=== PATIENT | female | born 1980 | race American Indian/Alaskan Native ===

== ENCOUNTER 2017-11-14 13:44 | Outpatient (CLI) | payer BC ==
--- NOTE | 2017-11-14 16:04 | Ultrasound Report ---
ULTRASOUND GUIDED NEEDLE CORE BIOPSY LEFT BREAST WITH CLIP PLACEMENT: 11/14/17 CLINICAL: Left breast mass. COMPARISON :A recent [facility] mammogram and left breast ultrasound. FINDINGS: The procedure was explained to the patient and informed consent was obtained. Ultrasound demonstrated the previously described irregular solid hypoechoic mass at 10 o'clock approximately 6 cm from the nipple. I marked the breast with a felt tip marker and a time out was called. The skin was prepped with Betadine and anesthetized with 1% lidocaine. Needle core biopsy was performed through a tiny dermatotomy using ultrasound guidance, 2% lidocaine with epinephrine for deep anesthesia and a 14-gauge Achieve biopsy device. 3 cores were obtained and placed in formalin. A localizer clip was deployed within the mass. The patient tolerated the procedure well and there were no apparent complications. Hemostasis was achieved with minimal pressure and a sterile dressing was applied. A two view mammogram demonstrated satisfactory placement of the clip. She left the department in good condition and was given instructions for wound care and followup. IMPRESSION: Uncomplicated ultrasound guided needle core biopsy with clip placement left breast.
--- NOTE | 2017-11-14 16:06 | Mammography Report ---
LEFT DIGITAL DIAGNOSTIC MAMMOGRAM: 11/14/17 13:44:00 CLINICAL: For clip placement immediately status post ultrasound biopsy. COMPARISON:A recent [facility] mammogram and left breast ultrasound. FINDINGS: A biopsy clip is now identified within the mass at 10 o'clock. IMPRESSION: Concordant clip placement status post ultrasound biopsy. BI-RADS CATEGORY: 5 - - Highly Suggestive of Malignancy Pathology pending.
== END 2017-11-14 13:45 | disposition home or self-care (01) ==
LOC: SPVWC 13:44
PROVIDERS: ATTEND Family Medicine
DX: C50.912 Malignant neoplasm of unspecified site of left female breast (principal); Z17.0 Estrogen receptor positive status [ER+]
CPT/HCPCS: 88305; 88342; 88361

== ENCOUNTER 2017-11-28 12:36 | Outpatient (CLI) | payer BC ==
--- NOTE | 2017-11-28 15:34 | Ultrasound Report ---
ULTRASOUND GUIDED NEEDLE CORE BIOPSY OF A LEFT AXILLARY LYMPH NODE WITH CLIP PLACEMENT : 11/28/17 12:36:00 CLINICAL: Newly diagnosed left breast cancer and a suspicious left axillary lymph node described on a recent [facility] ultrasound report. FINDINGS: The procedure was explained to the patient and informed consent was obtained. Ultrasound demonstrated a suspicious left axillary lymph node. The skin in the axilla was prepped with Betadine and anesthetized with 1% lidocaine. Ultrasound guided needle core biopsy of the lymph node was performed through a small dermatotomy using 2% lidocaine with epinephrine for deep anesthesia and a 18-gauge Achieve biopsy device. 3 samples were obtained and placed in formalin. A clip was deployed within the lymph node. Hemostasis was achieved with minimal pressure and a sterile dressing was applied. The patient tolerated the procedure well and there were no apparent complications. She was discharged in good condition and was given instructions for wound care and followup. IMPRESSION: Uncomplicated ultrasound-guided needle core biopsy of a left axillary lymph node with clip placement.
== END 2017-11-28 12:37 | disposition home or self-care (01) ==
LOC: SPVWC 12:36
PROVIDERS: ATTEND Surgery
DX: C50.912 Malignant neoplasm of unspecified site of left female breast (principal); C77.3 Secondary and unspecified malignant neoplasm of axilla and upper limb lymph nodes
CPT/HCPCS: 38505; 88305; A4648

== ENCOUNTER 2017-12-02 12:51 | Outpatient (CLI) | payer BC ==
--- NOTE | 2017-12-05 13:36 | Magnetic Resonance Report ---
BILATERAL BREAST MRI WITHOUT AND WITH CONTRAST: 12/02/17 12:51:00 CLINICAL: Newly diagnosed left breast cancer. She underwent an ultrasound guided needle biopsy of a left breast mass at 10 o'clock on 11/14/17. Pathology revealed invasive carcinoma NOS with overall grade III/III. She had ultrasound guided needle biopsy of a left axillary lymph node on 11/28/17 which confirmed metastatic poorly differentiated carcinoma. COMPARISON:11/02/17 [facility] left mammogram and 11/25/17 right mammogram from [facility] is. TECHNIQUE: Axial 1.0-mm T1 without, axial high resolution 2.0-mm T2 and axial 1.0-mm dynamic Vibrant high-resolution postcontrast T1 fat saturation sequences on a 1.5 Ada magnet. The examination was performed with an 8 channel dedicated Sentinelle breast coil. Post processing with CAD and subtraction was performed on an Microland workstation. 19.0 cc of Multihance was injected without incident via a left antecubital vein 22-gauge INT for the contrast portion of the exam. Consent was obtained prior to the administration of the contrast. FINDINGS: Right: Minimal background parenchymal enhancement. No mass or suspicious enhancement of the right breast. No suspicious right axillary or right internal mammary lymph nodes. Left: Moderate background parenchymal enhancement. The known cancer is an irregular enhancing mass at 10 o'clock approximately 7 cm from the nipple measuring 2.8 x 2.1 x 2.2 cm. It demonstrates heterogeneous enhancement with mixed kinetics, 320% peak enhancement and 4% type III washout. Separate regional clumped non-Mass enhancement is identified at 11 o'clock and 12 o'clock and measures approximately 6 cm anterior-posterior by 3 cm transverse dimension. The biopsy confirmed metastatic left axillary lymph node measures 2.5 x 1.5 cm. No other suspicious lymph nodes are identified. IMPRESSION: 1. Multicentric left breast cancer with a 2.8 cm x 2.2 cm x 2.1 cm mass at 10 o'clock and separate highly suspicious non-Mass enhancement at 11 o'clock and 12 o'clock measuring 6 x 3 cm. 2. A single left axillary karuna metastasis and no other suspicious lymph nodes. 3. Negative right breast. LEFT BI-RADS 6 -- Known Cancer RIGHT BI-RADS 1 -- Negative
== END 2017-12-02 12:52 | disposition home or self-care (01) ==
LOC: SPVIMAG 12:51
PROVIDERS: ATTEND Surgery
DX: C79.89 Secondary malignant neoplasm of other specified sites (principal); C50.212 Malignant neoplasm of upper-inner quadrant of left female breast
CPT/HCPCS: A9577; C8908; 77059

== ENCOUNTER 2017-12-05 07:21 | Day surgery (SDC) | payer BC ==
[2017-12-05] MEDS ORDERED: NACL BACTERIOSTATIC INFILTRATI ONE (08:20)
--- NOTE | 2017-12-05 08:42 | Anesthesia Consultation ---
Anesthesia Consult and Med Hx Date of service: 12/05/17 - Airway Anesthetic Teeth Evaluation: Good ROM Head & Neck: Adequate Mental/Hyoid Distance: Adequate Mallampati Class: Class II Intubation Access Assessment: Probably Good - Pulmonary Exam CTA: Yes - Cardiac Exam Cardiac Exam: RRR - Pre-Operative Health Status ASA Pre-Surgery Classification: ASA2 Proposed Anesthetic Plan: MAC - Cardiovascular System Hx Hypertension: Yes (7 YEARS, takes bystolic) - Central Nervous System Hx Psychiatric Problems: No - Other Systems Hx Alcohol Use: No Hx Substance Use: No Hx Cancer: Yes (breast CA)
--- NOTE | 2017-12-05 08:43 | Anesthesia Day of Surgery ---
Anesthesia Day of Surgery - Day of Surgery Patient Examined: Yes Patient H&P Reviewed: Yes Patient is NPO: Yes Beta Blockers: Yes (pb, 12/04 evening)
[2017-12-05] MEDS ORDERED: NACL 0.9% IR ONE (08:48)
[2017-12-05] MEDS ORDERED: DIPRIVAN 10 MG/ML IV ONE ×2 (08:54→09:38)
[2017-12-05] MEDS ORDERED: SUBLIMAZE ONE (08:55)
[2017-12-05] MEDS ORDERED: XYLOCAINE MPF 2% ONE (08:55)
[2017-12-05] MEDS ORDERED: HEPARIN 10,000 UNITS/10 ML ONE (08:57)
[2017-12-05] MEDS ORDERED: XYLOCAINE 1% 20 mL ONE (08:57)
[2017-12-05] MEDS ORDERED: NACL 0.9% 100 ML ONE (08:57)
[2017-12-05] MEDS ORDERED: MARCAINE 0.25% INFILTRATI ONE ×2 (08:57→08:58)
[2017-12-05] MEDS ORDERED: XYLOCAINE 1% 20 mL INFILTRATI ONE (08:58)
[2017-12-05] MEDS ORDERED: NACL 0.9% IV ONE (08:58)
[2017-12-05] MEDS ORDERED: HEPARIN 10,000 UNITS/10 ML IV ONE (08:58)
[2017-12-05] MEDS ORDERED: VERSED IV NR (09:00)
[2017-12-05] MEDS ORDERED: PEPCID IV NR (09:00)
[2017-12-05] MEDS ORDERED: NACL 0.9% 1000 ML 1,000 ML IV SCH ×2 (09:00)
[2017-12-05] MEDS ORDERED: ANCEF/STERILE WATER 2 GM/20 ML IV NR (09:00)
[2017-12-05] MEDS ORDERED: TORADOL ONE (10:24)
--- NOTE | 2017-12-05 10:28 | Short Stay Summary ---
Short Stay Documentation Date of service: 12/05/17 Narrative H&P: 37 yo F with newly diagnosed left sided breast cancer presents for placement of port. She has no complaints. - History Principal diagnosis: left breast cancer H&P: obtained from office - Allergies and Medications Current Medications: Allergies No Known Allergies Allergy (Verified 12/02/17 10:24) Home Medications Medication Instructions Recorded Confirmed Last Taken Type Azilsartan Med/Chlorthalidone 1 tab PO DAILY 12/02/17 12/05/17 12/04/17 History [Edarbyclor 40-25 mg] Nebivolol HCl [Bystolic] 5 mg PO DAILY 12/02/17 12/05/17 12/04/17 23:30 History Norgestimate-Ethinyl Estradiol 1 tab PO DAILY 12/02/17 12/05/17 12/04/17 History [Tri-Sprintec Tablet] Active Medications Cefazolin Sodium (Ancef/Sterile Water 2 Gm/20 Ml) 2 gm IV PREOP NR Stop: 12/05/17 11:00 Sodium Chloride (Nacl 0.9% 1000 Ml) 1,000 mls @ 100 mls/hr IV DIRECT OLIVE Last Admin: 12/05/17 08:51 Dose: 100 mls/hr Midazolam HCl (Versed) 2 mg IV PREOP NR Stop: 12/05/17 23:59 Last Admin: 12/05/17 08:55 Dose: 2 mg - Brief post op/procedure progress note Date of procedure: 12/05/17 Pre-op diagnosis: left breast cancer Post-op diagnosis: same Procedure: Right subclavian Port placement with ultrasound guidance Anesthesia: MAC, local Findings: Good placement of port, good blood return, no PTX on post op CXR Surgeon: NEIL RKAMER Estimated blood loss: minimal Pathology: none Condition: stable - Hospital course Hospital course: Pt was recovered in PACU and discharged to home in stable condition once criteria was met. - Disposition Condition at discharge: Good Disposition: DC-01 TO HOME OR SELFCARE Short Stay Discharge Plan Activity: no restrictions Diet: regular Wound: open to air, other (may shower tomorrow, pat incisions dry, do not scrub. Do not submerge incisions in water) Additional Instructions: call surgeon if you have increased pain at port site, increased bruising (some mild bruising is expected), drainage or redness around in the incisions. Follow up with: SHABNAM MARTINEZ MD [Primary Care Provider] - 7 Days MARCEL CAMPOS MD [Staff Physician] - 12/08/17
[2017-12-05] MEDS ORDERED: TORADOL IV ONE (10:30)
[2017-12-05] MEDS: DILAUDID IV PRN ×2 (10:30→10:44)
[2017-12-05] MEDS ORDERED: DILAUDID ONE (10:31)
--- NOTE | 2017-12-05 10:32 | Operative Report ---
Operative Report Operative Report: Date of operation: 12/05/17 Reoperative diagnosis: Left-sided breast cancer Postoperative diagnosis: Same as above Procedure performed: Placement of right subclavian Port-A-Cath with ultrasound guidance Surgeon: Alejandro Ashton DO Anesthesia: MAC, local Findings: On intraoperative CXR - good placement of port and no PTX EBL: <10cc Complications: none Disposition: stable to PACU HPI and indication: Patient is a 37-year-old female who was recently diagnosed with left-sided breast cancer. The patient is seen by Dr. Esqueda and Dr. Farias (onc) and deemed a candidate for chemotherapy. All of the risks associated with the procedure were discussed with the patient including but not limited to pneumothorax, infection, bleeding, malpositioned port, injury to other structures. The patient understands and all questions were answered. Consent was signed and placed on chart. Procedure in detail: The patient was identified in the preoperative area, taken back to operating room, placed on operating table in supine position. After anesthesia was induced both arms were tucked and upper chest and neck were prepped and draped in usual sterile fashion. A timeout was performed. The was placed in Trendelenburg position. Local anesthetic consisting of a 50/50 mixture of 1% lidocaine and 0.25% Marcaine was infiltrated into the skin at the intended puncture site. The right subclavian vein was visualized with ultrasound guidance and was accessed on the first stick. There was return of dark red, nonpulsatile blood. The wire was threaded under fluoroscopy without resistance and positioning confirmed. The needle was then removed. Using a 15 blade, an incision was made in the right upper chest and dissection carried down through the skin and subcutaneous tissue using Bovie electrocautery. Hemostasis was achieved along the way. A pocket for the port was then created bluntly and with electrocautery. The catheter was flushed and tunneled from the pocket to the wire. A breakaway catheter/dilator sheath then inserted over the wire under fluoroscopy, and the wire and dilator removed. The catheter was then inserted through the breakaway catheter which was then removed. The catheter sat flush under the skin. Using continuous fluoroscopy, the catheter was pulled back until the tip was visualized in the right atrium. The catheter was then cut to size and the port attached in the usual fashion. The port was then sutured into place to the pre-pectoral fascia using 2-0 Vicryl interrupted sutures. The wound was irrigated and hemostasis ensured. The port was tested with heparinized saline and there was return of blood and it flushed easily. The port was then instilled with 3000 units of heparin. The deep dermal layer was then closed with interrupted 3-0 Vicryl stitches. The skin incisions were closed with 4-0 Monocryl subcuticular stitches and skin glue. Intraoperative chest x-ray did show good positioning of the port, without evidence of pneumothorax. At the end of the case, all sponge, instrument, sharp counts were correct 2. The patient was awoken from anesthesia and taken to PACU in stable condition.
--- NOTE | 2017-12-05 10:41 | Post Anesthesia Evaluation ---
- Post Anesthesia Evaluation Patient Participated: Yes Airway Patent: Yes Stable Respiratory Function: Yes Nausea/Vomiting: No Temp > 96.8F: Yes Pain Manageable: Yes Adequeate Hydration: Yes Anesthesia Complications: No
--- NOTE | 2017-12-05 10:44 | Fluoroscopy Report ---
FLUOROSCOPY CENTRAL VENOUS DEVICE PLACEMENT INDICATION: Left breast cancer. COMPARISON: None. FINDINGS: Frontal chest radiograph demonstrates a right subclavian chest port tip at or just below the cavoatrial junction. Slight exaggerated cardiomediastinal silhouette. Clear lungs. Unremarkable bones. CONCLUSION: Uncomplicated right chest port, as described. Thank you for the opportunity to participate in this patient's care.
[2017-12-05 13:29] VITALS: BP 103/73
== END 2017-12-05 11:39 | disposition home or self-care (01) ==
LOC: OR 07:21
PROVIDERS: ATTEND Surgery
DX: C50.912 Malignant neoplasm of unspecified site of left female breast (principal); I10 Essential (primary) hypertension
CPT/HCPCS: 36561; 77001; 81025; C1788; J0690; J1170; J1644; J1885; J2250; J2704; J3010; J7030

== ENCOUNTER 2017-12-15 11:19 | Outpatient (CLI) | payer BC ==
--- NOTE | 2017-12-15 15:24 | PET Report ---
PET/CT:12/15/17 11:19:00 CLINICAL: Breast cancer staging. Newly diagnosed left breast cancer and a biopsy proven left axillary karuna metastasis. RADIOPHARMACEUTICAL: 13.56mCi F18-FDG. COMPARISON: MRI Breast 12/02/17 TECHNIQUE- Following intravenous injection of F-18 FDG and an approximately 60 minute uptake period, CT and PET images from the mid skull to the upper thighs were acquired with the patient in the fasted state. No contrast was administered. The CT protocol used for this PET CT study is designed for attenuation correction and anatomic localization of PET abnormalities. This carbon cutter CT is not desired to produce and cannot replace, [id number] diagnostic CT scans with specific imaging protocols for different body parts and indications. Plasma glucose at the time of this test: 111g/dl. The standardized uptake values (SUV) are normalized to patient body weight and indicate the highest activity concentration (SUV max) in a given disease site. FINDINGS: Brain--Physiologic FDG uptake in the visualized regions of the brain. Neck--Physiologic FDG uptake in the mucosal structures and prominent bilateral benign FDG uptake in brown fat of the lower neck and upper chest. Chest--An irregular 3.0 cm left upper inner FDG avid breast mass with SUV 7.8. It contains a biopsy clip and correlates with the known cancer. No other mass no other suspicious FDG uptake in the left breast. Physiologic FDG uptake in mediastinal blood pool and myocardium. Lungs--No abnormal uptake. No pulmonary nodule or mass. Pleura/pericardium--No abnormal uptake. Thoracic nodes--No abnormal uptake. The biopsy proven left axillary lymph node metastasis measures 2.1 x 1.2 cm with SUV 2.0. Several prominent contiguous right paratracheal heavily calcified lymph nodes. No calcified hilar lymph nodes. Hepatobiliary--The liver is enlarged with the right lobe measuring 17 cm in length. The liver is diffusely hypodense with suggestion of too numerous to count hypodense masses. A posterior right upper lobe mass is oval and circumscribed and measures 2.3 x 2.0 cm. A hypodense 2.0 x 1.7 cm mass of the lateral segment of the left lobe of the liver. This lesion demonstrates heterogeneous FDG uptake within she the 6.5. Several additional foci of FDG uptake are suspicious for FDG avid metastases. The most prominent is in the midline in the posterior aspect of the lateral segment of the left lobe with SUV 7.2. There is no distinct corresponding lesion on CT. A few scattered benign-appearing calcifications in the liver. The gallbladder and bile ducts are normal. Liver background SUV mean, as a reference for comparing FDG studies, is 4.0 . Spleen--No abnormal uptake. Pancreas--No abnormal uptake. Adrenal Glands--No abnormal uptake. Kidneys/Ureters/Bladder--No abnormal uptake. Abdominopelvic Nodes--No abnormal uptake. Bowel/Peritoneum/Mesentery--No abnormal uptake. Pelvic organs--No abnormal uptake. Bones/Soft Tissues--No abnormal uptake and no suspicious bone lesion. IMPRESSION- 1. Newly diagnosed left breast cancer with a biopsy proven left axillary lymph node metastasis. 2. Mild hepatomegaly and too numerous to count highly suspicious liver masses.Several highly suspicious FDG avid liver masses with the greatest FDG uptake in left lobe lateral segment lesions. 3. No evidence of pulmonary or skeletal metastasis.
== END 2017-12-15 11:20 | disposition home or self-care (01) ==
LOC: PET 11:19
PROVIDERS: ATTEND Internal Medicine Hematology & Oncology
DX: C79.89 Secondary malignant neoplasm of other specified sites (principal); C50.212 Malignant neoplasm of upper-inner quadrant of left female breast; R16.0 Hepatomegaly, not elsewhere classified; K76.89 Other specified diseases of liver; I10 Essential (primary) hypertension
CPT/HCPCS: 78815; 82962; A9552

== ENCOUNTER 2017-12-16 06:53 | Day surgery (SDC) | payer BC ==
[2017-12-16 07:54] LABS: Basophils # (Auto) 0.1 K/mm3 (0.0-0.1); Basophils % (Auto) 0.5 % (0.0-1.8); Eosinophils # (Auto) 0.3 K/mm3 (0.0-0.4); Eosinophils % (Auto) 2.5 % (0.0-4.3); Hematocrit 36.8 % (30.3-42.9); Hemoglobin 12.8 gm/dl (10.1-14.3); Lymphocytes # (Auto) 3.2 K/mm3 (1.2-5.4); Lymphocytes % (Auto) 27.5 % (13.4-35.0); Mean Corpuscular HGB Conc 35 % (30-34); Mean Corpuscular Hemoglobin 30 pg (28-32); Mean Corpuscular Volume 87 fl (79-97); Monocytes # (Auto) 1.1 K/mm3 (0.0-0.8); Monocytes % (Auto) 9.9 % (0.0-7.3); Platelet Count 365 K/mm3 (140-440); Red Blood Count 4.26 M/mm3 (3.65-5.03); Red Cell Distribution Width 12.8 % (13.2-15.2)
[2017-12-16 08:04] LABS: INR 0.88 (0.87-1.13)
[2017-12-16 08:05] LABS: Partial Thromboplastin Time 31.2 Sec. (24.2-36.6)
[2017-12-16 09:00] LABS: BUN/Creatinine Ratio 21; Blood Urea Nitrogen 21 mg/dL (7-17); Calcium 9.2 mg/dL (8.4-10.2); Hemolysis Index 1
[2017-12-16] MEDS ORDERED: VERSED IV ONE ×2 (10:05→10:22)
[2017-12-16] MEDS ORDERED: SUBLIMAZE ONE (10:06)
[2017-12-16] MEDS ORDERED: SUBLIMAZE IV ONE (10:22)
[2017-12-16] MEDS ORDERED: GELFOAM 12 X 7 TP ONE (10:54)
--- NOTE | 2017-12-16 11:26 | Short Stay Summary ---
Short Stay Documentation Date of service: 12/16/17 Narrative H&P: 37-year-old female with metastatic breast cancer who presents for liver biopsy. I reviewed the CT/PET scan and the imaging of the liver is not adequate for targeting liver lesion. Patient was brought to CT and had a CT scan performed with contrast of the abdomen and pelvis, and then had a CT guided liver biopsy performed which had adequate tissue per pathology. 5 cores provided. - History Principal diagnosis: Metastatic brast cancer Past Medical History: other (breast cancer) Past Surgical History: Other (port placement) Social history: no significant social history - Allergies and Medications Current Medications: Allergies No Known Allergies Allergy (Verified 12/02/17 10:24) Home Medications Medication Instructions Recorded Confirmed Last Taken Type Azilsartan Med/Chlorthalidone 1 tab PO DAILY 12/02/17 12/16/17 12/15/17 History [Edarbyclor 40-25 mg] Nebivolol HCl [Bystolic] 5 mg PO DAILY 12/02/17 12/16/17 12/15/17 History - Physical exam General appearance: no acute distress Lungs: Normal air movement Gastrointestinal: normal Neurological: Normal speech - Brief post op/procedure progress note Date of procedure: 12/16/17 Pre-op diagnosis: Metastatic breast cancer Post-op diagnosis: same Procedure: CT guided liver biopsy Anesthesia: local (w/ conscious sedation) Findings: 4 liver lesions, largest left sided one targeted for biopsy ; gelfoam slurry used to gelfoam the tract Surgeon: PAIGE VILLEGAS Estimated blood loss: minimal Condition: stable - Hospital course Hospital course: Patient will be monitored for 4 hrs, and then can be discharged if no issues. - Disposition Condition at discharge: Stable Disposition: DC-01 TO HOME OR SELFCARE - Discharge Diagnoses (1) Metastatic breast cancer Status: Acute Short Stay Discharge Plan Activity: advance as tolerated Weight Bearing Status: Weight Bear as Tolerated Diet: renal Wound: keep clean and dry, other (no lifting more than 10 pounds for 1 week) Follow up with: SHABNAM MARTINEZ MD [Primary Care Provider] - 7 Days
[2017-12-16 14:58] VITALS: BP 98/57
--- NOTE | 2017-12-16 15:08 | Cat Scan Report ---
EXAM: CT guided focal left sided liver biopsy CLINICAL INDICATION: Metastatic breast cancer with liver lesions. DATE: 12/16/17 LYE MACHINE OPERATOR: PAIGE VILLEGAS MD MEDICATIONS: Conscious sedation using Versed and fentanyl was performed under guidance of radiologic nursing. Continuous cardiopulmonary monitoring was utilized. PROCEDURE: Following an explanation of the risks, benefits and alternatives; written informed consent was obtained. The patient was brought to the CT suite and placed in supine position on the CT table. Scheme Technician CT was performed of the liver. After determining the appropriate site, the skin was infiltrated with lidocaine and a finder needle was placed. Intermittent CT was performed until the desired position was identified. The 17 gauge coaxial needle was inserted into the liver adjacent to the largest visualized liver lesion correlated to prior CT scan with contrast. 5, 18 gauge biopsies were obtained. Adequate tissue was obtained. Gelfoam slurry was injected through the coaxial needle as the needle was withdrawn. Final CT was obtained. Sterile bandage was applied. The patient tolerated the procedure well. There were no immediate postprocedural complications. FINDINGS: 1. Initial CT demonstrates multiple liver lesions, the largest being in the left lobe of the liver best visualized on the contrast enhanced CT of the abdomen and pelvis. 2. Intermittent CT demonstrates the coaxial 17 gauge coaxial needle was placed adjacent to the left lobe largest hepatic lesion. 3. There is a satisfactory window for CT biopsy. 4. A total of 5 18 gauge core biopsies were obtained. 5. Expected postprocedural changes noted with Gelfoam slurry injection. No hematoma. IMPRESSION: Successful CT guided left sided focal liver biopsy.
--- NOTE | 2017-12-16 19:48 | Cat Scan Report ---
FINAL REPORT EXAM: CT ABDOMEN PELVIS W CON HISTORY: breast cancer. Possible liver lesions. TECHNIQUE: CT abdomen and pelvis with intravenous contrast PRIORS: None. FINDINGS: There is some diffuse fatty infiltration of the liver Within the lateral 7 of the left lobe of the liver there is an irregular low-density focus measuring 1.8 x 2.2 centimeters. Margins do not enhance. Within the right lobe of the liver (axial slice 20) there is low-density focus 1.1 x 0.86 centimeters. Inferior to this there is a mildly dilated duct and there is surrounding increased density likely reflecting fatty sparing may reflect focal cystic change in ectasia and intrahepatic duct however underlying mass cannot be excluded. The kidneys demonstrate symmetric contrast enhancement. Adrenal glands are unremarkable Spleen is normal in size. Multiple splenic calcifications are present. No peripancreatic inflammatory changes are observed. No evidence for colonic or small bowel distention. Urinary bladder is unremarkable Uterus has a lobular appearance likely reflecting underlying fibroid. No evidence for ascites or free air No pathologically enlarged lymph nodes are observed. No focal bony lesions are identified. IMPRESSION: 1.8 x 0.22 centimeter low-density focus within the left lobe of the liver. Indeterminate could reflect hemangioma however given history underlying neoplasm should be excluded. Focally dilated duct within the right lobe of the liver with a cystic-appearing focus could reflect focal ectasia however underlying neoplasm cannot be excluded surrounding increased density likely reflects focal fatty sparing. Diffuse fatty infiltration of the liver Consider a follow-up MRI with liver protocol for further evaluation including MRCP. Lobular contour the uterus likely reflects underlying fibroid No additional acute findings
== END 2017-12-16 15:00 | disposition home or self-care (01) ==
LOC: CATHLABREC 06:53 → EDSTATUS 08:30 → CATHLABREC 15:00
PROVIDERS: ATTEND Internal Medicine Hematology & Oncology
DX: C22.8 Malignant neoplasm of liver, primary, unspecified as to type (principal); C50.212 Malignant neoplasm of upper-inner quadrant of left female breast
CPT/HCPCS: 36415; 47000; 74177; 77012; 80048; 85025; 85610; 85730; 88307; 88333; A4649; J2250; J3010; Q9967

== ENCOUNTER 2018-02-15 17:47 | Inpatient (IN) | payer BC ==
[2018-02-15] MEDS ORDERED: NACL 0.9% 500 ML 500 ML IV ONE (18:23)
[2018-02-15 18:46] LABS: Hematocrit 27.9 % (30.3-42.9); Hemoglobin 9.6 gm/dl (10.1-14.3); Mean Corpuscular HGB Conc 35 % (30-34); Mean Corpuscular Hemoglobin 30 pg (28-32); Mean Corpuscular Volume 87 fl (79-97); Platelet Count 291 K/mm3 (140-440)
[2018-02-15 18:51] LABS: INR 1.01 (0.87-1.13)
[2018-02-15 18:59] LABS: Albumin 3.5 g/dL (3.9-5); Calcium 8.5 mg/dL (8.4-10.2)
[2018-02-15 19:38] LABS: Basophils % (Manual) 0 % (0.0-1.8); Total Cells Counted 100
[2018-02-15 19:39] LABS: Anisocytosis Few
[2018-02-15] MEDS ORDERED: LEVAQUIN 750MG/150ML 750 MG/150 ML BAG IV ONE (19:46)
[2018-02-15] MEDS ORDERED: ZOSYN/NS 4.5GM/100ML 4.5 GM/100 ML VIAL IV SCH (20:00)
--- NOTE | 2018-02-15 20:01 | Emergency Department Report ---
HPI - General Chief Complaint: Fever Time Seen by Provider: 02/15/18 19:44 - HPI HPI: 37-year-old -[place] female presents to the emergency department from [facility], sent in by her oncologist, with complaint of a fever. The patient went in there for a follow-up regarding her breast cancer with liver metastasis and chemotherapy treatment, which she had last . She was found to have a temperature with a MAXIMUM TEMPERATURE of 101.7F. She's been feeling cold with some chills and they noticed her to be clammy and checked her temperature and found the fever. She also has a history of hypertension. She was not given anything for her fever and presents with a note from the oncologist stating that the patient has neutropenic fever, to obtain cultures and start empiric antibiotics. ED Past Medical Hx - Past Medical History Previous Medical History?: Yes Hx Hypertension: Yes (2010, takes bystolic) Hx Heart Attack/AMI: No Hx Congestive Heart Failure: No Hx Diabetes: No Hx of Cancer: Yes (breast, liver) Hx HIV: No - Social History Smoking Status: Never Smoker Substance Use Type: None - Medications Home Medications: Home Medications Medication Instructions Recorded Confirmed Last Taken Type Azilsartan Med/Chlorthalidone 1 tab PO DAILY 12/02/17 12/16/17 12/15/17 History [Edarbyclor 40-25 mg] Nebivolol HCl [Bystolic] 5 mg PO DAILY 12/02/17 12/16/17 12/15/17 History ED Review of Systems ROS: Stated complaint: FEVER Other details as noted in HPI Comment: All other systems reviewed and negative Constitutional: chills, fever Eyes: denies: eye pain, eye discharge, vision change ENT: denies: ear pain, throat pain Respiratory: denies: cough, shortness of breath, wheezing Cardiovascular: denies: chest pain, palpitations Gastrointestinal: denies: abdominal pain, nausea, diarrhea Genitourinary: denies: urgency, dysuria, discharge Musculoskeletal: denies: back pain, joint swelling, arthralgia Skin: denies: rash, lesions Neurological: denies: headache, weakness, paresthesias Physical Exam - Physical Exam Vital Signs: Vital Signs 02/15/18 18:13 Temperature 100.7 F H Pulse Rate 129 H Respiratory 18 Rate Blood Pressure 100/63 O2 Sat by Pulse 98 Oximetry Physical Exam: GENERAL: The patient is well-developed well-nourished. HENT: Normocephalic. Atraumatic. Patient has moist mucous membranes. EYES: Extraocular motions are intact. Pupils equal reactive to light bilaterally. NECK: Supple. Trachea is midline. CHEST/LUNGS: Clear to auscultation. There is no respiratory distress noted. There is a chest port in place. HEART/CARDIOVASCULAR: Regular. There is mild to moderate tachycardia. There is no murmur. ABDOMEN: Abdomen is soft, nontender. Patient has normal bowel sounds. There is no abdominal distention. SKIN: Skin is hot but dry. NEURO: The patient is awake, alert, and oriented. The patient is cooperative. The patient has no focal neurologic deficits. The patient has normal speech. Cranial nerves II through XII grossly intact. MUSCULOSKELETAL: There is no tenderness or deformity. There is no limitation range of motion. There is no evidence of acute injury. ED Course Vital Signs 02/15/18 18:13 Temperature 100.7 F H Pulse Rate 129 H Respiratory 18 Rate Blood Pressure 100/63 O2 Sat by Pulse 98 Oximetry ED Medical Decision Making - Lab Data Result diagrams: 02/15/18 18:26 02/15/18 18:26 - Radiology Data Radiology results: image reviewed interpreted by me: Chest x-ray does not show any acute process. There are no pleural effusions, obvious pneumonia and there is no pneumothorax. - Medical Decision Making Patient presents with neutropenic fever. It appears that she has a urinary tract infection as a source of the fever/infection. Chest x-ray does not show any acute process. Patient was treated empirically with Zosyn and Levaquin after blood and urine cultures have been sent. Patient had some tachycardia and some transient hypotension but seemed responsive to IV fluid resuscitation. Patient is dehydrated. Labs also show some mild hypokalemia and some renal insufficiency. The patient was sent in by the oncologist for admission and further evaluation and treatment. Patient has been accepted for admission by the hospitalist service and Dr. Khanna. - Differential Diagnosis sepsis, pneumonia, UTI, viral syndrome Critical Care Time: No Critical care attestation.: If time is entered above; I have spent that time in minutes in the direct care of this critically ill patient, excluding procedure time. ED Disposition Clinical Impression: Neutropenic fever, Hypokalemia Sepsis Qualifiers: Sepsis type: sepsis due to unspecified organism Qualified Code(s): A41.9 - Sepsis, unspecified organism Hypotension Qualifiers: Hypotension type: other hypotension type Qualified Code(s): I95.89 - Other hypotension UTI (urinary tract infection) Qualifiers: Urinary tract infection type: acute cystitis Hematuria presence: without hematuria Qualified Code(s): N30.00 - Acute cystitis without hematuria Disposition: OP ADMIT IP TO THIS HOSP Is pt being admited?: Yes Condition: Serious Time of Disposition: 00:58
[2018-02-15] MEDS ORDERED: TYLENOL PO ONE (20:28)
[2018-02-15] MEDS ORDERED: K-DUR PO ONE (21:12)
[2018-02-15 21:42] LABS: Bacteria,Urine 1+ /HPF (Negative); Bilirubin,Urine NEG (Negative); Blood,Urine SM (Negative); Color,Urine Yellow (Yellow); Mucus,Urine FEW /HPF; Protein,Urine <15 mg/dL mg/dL (Negative); Urobilinogen,Urine < 2.0 mg/dL (<2.0)
[2018-02-15] MEDS ORDERED: NACL 0.9% 1000 ML 2,000 ML ONE (22:02)
[2018-02-15] MEDS ORDERED: VANCOMYCIN/NS 1 GM/250 ML 1 GM/250 ML BAG IV SCH (22:10)
--- NOTE | 2018-02-15 22:10 | History and Physical Report ---
History of Present Illness Date of examination: 02/15/18 History of present illness: 37 year old woman with history of hypertension, metastatic breast cancer was sent to the ER for evaluation of fever. She was diagnosed with breast cancer this October and started chemotherapy 1 week ago. She went for her follow up visit today and she was found to be febrile, tachycardic, patient also complains of chills Review of systems Constitutional: no weight loss Ears, eyes, nose, mouth and throat: no nasal congestion, no nasal discharge, no sinus pressure, no vision change, no red eye. Neck: No neck pain or rigidity. Cardiovascular: no chest pain, palpitation Respiratory: no cough, shortness of breath Gastrointestinal: no abdominal pain, hematochezia Genitourinary : no dysuria, frequency , no hematuria Musculoskeletal: no joint swelling or muscle ache Integumentary: no rash, no pruritis Neurological: no parathesias, no numbness, no focal weakness Endocrine: no cold or heat intolerance, no polyuria or polydipsia Hematologic/Lymphatic: no easy bruising, no easy bleeding, no gland swelling Allergic/Immunologic: no urticaria, no angioedema. PAST MEDICAL HISTORY: hypertension, breast cancer PAST SURGICAL HISTORY: Port plscement SOCIAL HISTORY: Denies tobacco, alcohol, drugs FAMILY HISTORY: Hypertension Medications and Allergies Allergies Allergy/AdvReac Type Severity Reaction Status Date / Time No Known Allergies Allergy Verified 02/15/18 18:23 Home Medications Medication Instructions Recorded Confirmed Last Taken Type Nebivolol HCl [Bystolic] 5 mg PO DAILY 12/02/17 02/16/18 02/15/18 History Edarbyclor 40-25 mg 1 tab PO DAILY 02/16/18 02/16/18 02/15/18 History Active Meds: Active Medications Piperacillin Sod/Tazobactam Sod (Zosyn/Ns 4.5gm/100ml) 4.5 gm in 100 mls @ 200 mls/hr IV ONCE OLIVE Last Admin: 02/15/18 20:29 Dose: 200 mls/hr Exam - Physical Exam Narrative exam: Gen. appearance: Patient lying in bed, no apparent distress HEENT: Normocephalic, atraumatic, pupils equally round and reactive to light, extraocular movement intact, and no sclericterus,. No JVD or thyromegaly or nodule,neck supple, no carotid bruit ,mucous membranes moist, no exudate or erythema Heart: S1, S2, regular rate and rhythm Lungs: Clear bilaterally, breathing comfortable Abdomen: Positive bowel sounds, nontender, nondistended, no organomegaly Extremity: No edema, no cyanosis, clubbing Skin: No rash, nodules, warm, dry Neuro: Oriented 3, cranial nerves II-12 intact, speech is fluent, motor and sensory intact - Constitutional Vitals: Temp Pulse Resp BP Pulse Ox 100.7 F H 129 H 18 100/63 98 02/15/18 18:13 02/15/18 18:13 02/15/18 18:13 02/15/18 18:13 02/15/18 18:13 Results - Labs CBC & Chem 7: 02/18/18 05:18 02/18/18 05:18 Labs: Abnormal lab results 02/15/18 02/15/18 02/15/18 Range/Units 18:26 18:26 20:54 WBC 1.4 L* (4.5-11.0) K/mm3 RBC 3.20 L (3.65-5.03) M/mm3 Hgb 9.6 L (10.1-14.3) gm/dl Hct 27.9 L (30.3-42.9) % MCHC 35 H (30-34) % Seg Neuts % (Manual) 19.0 L (40.0-70.0) % Lymphocytes % (Manual) 69.0 H (13.4-35.0) % Monocytes % (Manual) 10.0 H (0.0-7.3) % Seg Neutrophils # Man 0.3 L (1.8-7.7) K/mm3 Lymphocytes # (Manual) 1.0 L (1.2-5.4) K/mm3 Sodium 132 L (137-145) mmol/L Potassium 3.3 L (3.6-5.0) mmol/L Chloride 93.0 L (98-107) mmol/L BUN 21 H (7-17) mg/dL Creatinine 1.5 H (0.7-1.2) mg/dL Glucose 135 H (65-100) mg/dL Albumin 3.5 L (3.9-5) g/dL Urine WBC (Auto) 76.0 H (0.0-6.0) /HPF Assessment and Plan Assessment Septic Shock Acute renal insufficiency UTI Met breast Cancer Plan Admit to medicine Fluid bolus and start maintence IV fluid Start vancomycin, cefepime, follow cultures Check lactate, consult oncology start levophed drip, consult critical care Neutropenic precautions DVT prophalaxis
[2018-02-15] MEDS ORDERED: NACL 0.9% 1000 ML 2,000 ML IV ONE (22:12)
[2018-02-15] MEDS ORDERED: TYLENOL PO PRN (22:16)
[2018-02-15] MEDS ORDERED: ZOFRAN IV PRN (22:16)
[2018-02-15] MEDS ORDERED: SODIUM CHLORIDE FLUSH SYRINGE 10 ML IV PRN (22:16)
[2018-02-15] MEDS ORDERED: TYLENOL PR PRN (22:16)
[2018-02-15] MEDS ORDERED: NACL 0.9% 1000 ML 1,000 ML IV ONE (22:49)
[2018-02-15] MEDS ORDERED: VANCOMYCIN PHARMACY TO DOSE IV SCH (23:00)
[2018-02-15] MEDS ORDERED: LEVOPHED DRIP 4 MG/NS 250 ML 4 MG/250 ML BAG IV SCH (23:00)
--- NOTE | 2018-02-15 23:44 | XRay Report ---
FINAL REPORT PROCEDURE: XR CHEST ROUTINE 2V TECHNIQUE: PA and lateral chest radiographs were obtained. CPT 15429 HISTORY: possible Sepsis COMPARISON: No prior studies are available for comparison. FINDINGS: Heart: Normal. Mediastinum/Vessels: Normal. Lungs/Pleural space: Normal. Bony thorax: No acute osseous abnormality. Other: A right-sided chest port is noted with its catheter terminating at the level of cavoatrial junction. IMPRESSION: No acute pulmonary process..
[2018-02-16] MEDS ORDERED: VANCOMYCIN 1,500 MG in NACL 0.9% 500 ML 500 ML IV ONE
[2018-02-16] MEDS ORDERED: NACL 0.9% 1000 ML IV ONE (00:56)
[2018-02-16] MEDS: MAXIPIME 1 GM in NACL 0.9% 20 ML IV SCH ×3 (01:39→11:34)
[2018-02-16] MEDS ORDERED: TYLENOL PO ONE (01:56)
[2018-02-16] MEDS ORDERED: PHENERGAN PO ONE (02:04)
[2018-02-16 05:46] LABS: Hematocrit 23.5 % (30.3-42.9); Hemoglobin 8.2 gm/dl (10.1-14.3); Mean Corpuscular HGB Conc 35 % (30-34); Mean Corpuscular Hemoglobin 30 pg (28-32); Mean Corpuscular Volume 86 fl (79-97); Platelet Count 219 K/mm3 (140-440); Red Blood Count 2.73 M/mm3 (3.65-5.03); Red Cell Distribution Width 14.2 % (13.2-15.2)
[2018-02-16] MEDS ORDERED: NACL 0.9% 500 ML 500 ML IV ONE ×2 (06:07→06:13)
[2018-02-16] MEDS ORDERED: K-DUR PO ONE (06:12)
[2018-02-16] MEDS ORDERED: NACL 0.9% 1000 ML 1,000 ML IV ONE (07:00)
[2018-02-16 07:07] LABS: Band Neutrophils # (Manual) 0.2 K/mm3; Basophils % (Manual) 0 % (0.0-1.8); Eosinophils % (Manual) 0 % (0.0-4.3); Total Cells Counted 25
[2018-02-16 07:09] LABS: Spherocytes Rare; Target Cells Few
[2018-02-16 07:10] LABS: Anisocytosis Few
[2018-02-16 07:14] LABS: Rouleaux Rare
[2018-02-16 07:15] LABS: Platelet Estimate Consistent w Auto
[2018-02-16 08:53] LABS: Pathology Differential Review TNR
[2018-02-16] MEDS: NACL 0.9% 1000 ML 1,000 ML IV SCH ×2 (09:42→17:49)
[2018-02-16] MEDS: LOVENOX SUB-Q SCH (09:42)
[2018-02-16] MEDS: SODIUM CHLORIDE FLUSH SYRINGE 10 ML IV SCH ×2 (09:49→22:00)
--- NOTE | 2018-02-16 11:47 | Hem/Onc Progress Note ---
Assessment and Plan We will continue antibiotics. Neupogen has been started. May need port removal once culture data is complete. Discussed with the patient Subjective Date of service: 02/16/18 Interval history: Patient known to me. Metastatic breast cancer. She got admitted with with fevers. She is neutropenic. The culture gram-positive cocci in clusters. She is on empiric antibiotics. Blood cultures from port were also taken from the office I'm awaiting results of that. Objective - Constitutional Vitals: Last Vital Signs Temp 98.0 F 02/16/18 08:18 Pulse 114 H 02/16/18 08:18 Resp 18 02/16/18 08:18 BP 101/68 02/16/18 08:18 Pulse Ox 94 02/16/18 08:18 Pain Intensity (0-10): denies any pain General appearance: no acute distress Performance status: 2- selfcare, ambulatory - Neck Neck: supple - Cardiovascular Rhythm: regular Extremities: No edema - Gastrointestinal General gastrointestinal: Present: soft - Labs Lab Results: Laboratory Results - last 24 hr 02/15/18 02/15/18 02/15/18 18:26 18:26 18:26 WBC 1.4 L* RBC 3.20 L Hgb 9.6 L Hct 27.9 L MCV 87 MCH 30 MCHC 35 H RDW 14.0 Plt Count 291 Lymph % (Auto) Behavioral Psychologist [place] % (Auto) Behavioral Psychologist Add Manual Diff Complete Total Counted 100 Seg Neutrophils % Behavioral Psychologist Seg Neuts % (Manual) 19.0 L Band Neutrophils % 0 Lymphocytes % (Manual) 69.0 H Reactive Lymphs % (Man) 0 Monocytes % (Manual) 10.0 H Eosinophils % (Manual) 2.0 Basophils % (Manual) 0 Metamyelocytes % 0 Myelocytes % 0 Promyelocytes % 0 Blast Cells % 0 Nucleated RBC % Not Reportable Seg Neutrophils # Man 0.3 L Band Neutrophils # 0.0 Lymphocytes # (Manual) 1.0 L Abs React Lymphs (Man) 0.0 Monocytes # (Manual) 0.1 Eosinophils # (Manual) 0.0 Basophils # (Manual) 0.0 Metamyelocytes # 0.0 Myelocytes # 0.0 Promyelocytes # 0.0 Blast Cells # 0.0 Pathologist Review WBC Morphology Not Reportable Hypersegmented Neuts Not Reportable Hyposegmented Neuts Not Reportable Hypogranular Neuts Not Reportable Smudge Cells Not Reportable Toxic Granulation Not Reportable Toxic Vacuolation Not Reportable Dohle Bodies Not Reportable Pelger-Huet Anomaly Not Reportable Lucio Rods Not Reportable Platelet Estimate Appears normal Clumped Platelets Not Reportable Plt Clumps, EDTA Not Reportable Large Platelets Not Reportable Giant Platelets Not Reportable Platelet Satelliting Not Reportable Plt Morphology Comment Not Reportable RBC Morphology Not Reportable Dimorphic RBCs Not Reportable Polychromasia Not Reportable Hypochromasia Not Reportable Poikilocytosis Not Reportable Anisocytosis Few Microcytosis Not Reportable Macrocytosis Not Reportable Spherocytes Not Reportable Pappenheimer Bodies Not Reportable Sickle Cells Not Reportable Target Cells Not Reportable Tear Drop Cells Not Reportable Ovalocytes Not Reportable Helmet Cells Not Reportable Patel-Katy Bodies Not Reportable [place] Rings Not Reportable [place] Cells Not Reportable Bite Cells Not Reportable Crenated Cell Not Reportable Elliptocytes Not Reportable Acanthocytes (Spur) Not Reportable Rouleaux Not Reportable Hemoglobin C Crystals Not Reportable Schistocytes Not Reportable Malaria parasites Not Reportable Roger Bodies Not Reportable Hem Pathologist Commnt No PT 13.8 INR 1.01 VBG pH Sodium 132 L Potassium 3.3 L Chloride 93.0 L Carbon Dioxide 24 Anion Gap 18 BUN 21 H Creatinine 1.5 H Estimated GFR 48 BUN/Creatinine Ratio 14 Glucose 135 H Lactic Acid Calcium 8.5 Total Bilirubin 0.80 AST 16 ALT 18 Alkaline Phosphatase 59 Total Protein 7.0 Albumin 3.5 L Albumin/Globulin Ratio 1.0 HCG, Qual Urine Color Urine Turbidity Urine pH Ur Specific [place] Urine Protein Urine Glucose (UA) Urine Ketones Urine Blood Urine Nitrite Urine Bilirubin Urine Urobilinogen Ur Leukocyte Esterase Urine WBC (Auto) Urine RBC (Auto) U Epithel Cells (Auto) Urine Bacteria (Auto) Ur Transition Epith Cell Urine Mucus Blood Type Antibody Screen 02/15/18 02/15/18 02/15/18 18:26 18:26 18:26 WBC RBC Hgb Hct MCV MCH MCHC RDW Plt Count Lymph % (Auto) [place] % (Auto) Add Manual Diff Total Counted Seg Neutrophils % Seg Neuts % (Manual) Band Neutrophils % Lymphocytes % (Manual) Reactive Lymphs % (Man) Monocytes % (Manual) Eosinophils % (Manual) Basophils % (Manual) Metamyelocytes % Myelocytes % Promyelocytes % Blast Cells % Nucleated RBC % Seg Neutrophils # Man Band Neutrophils # Lymphocytes # (Manual) Abs React Lymphs (Man) Monocytes # (Manual) Eosinophils # (Manual) Basophils # (Manual) Metamyelocytes # Myelocytes # Promyelocytes # Blast Cells # Pathologist Review WBC Morphology Hypersegmented Neuts Hyposegmented Neuts Hypogranular Neuts Smudge Cells Toxic Granulation Toxic Vacuolation Dohle Bodies Pelger-Huet Anomaly Lucio Rods Platelet Estimate Clumped Platelets Plt Clumps, EDTA Large Platelets Giant Platelets Platelet Satelliting Plt Morphology Comment RBC Morphology Dimorphic RBCs Polychromasia Hypochromasia Poikilocytosis Anisocytosis Microcytosis Macrocytosis Spherocytes Pappenheimer Bodies Sickle Cells Target Cells Tear Drop Cells Ovalocytes Helmet Cells Patel-Katy Bodies [place] Rings [place]ila Cells Bite Cells Crenated Cell Elliptocytes Acanthocytes (Spur) Rouleaux Hemoglobin C Crystals Schistocytes Malaria parasites Roger Bodies Hem Pathologist Commnt PT INR VBG pH 7.400 Sodium Potassium Chloride Carbon Dioxide Anion Gap BUN Creatinine Estimated GFR BUN/Creatinine Ratio Glucose Lactic Acid 1.50 Calcium Total Bilirubin AST ALT Alkaline Phosphatase Total Protein Albumin Albumin/Globulin Ratio HCG, Qual Negative Urine Color Urine Turbidity Urine pH Ur Specific [place] Urine Protein Urine Glucose (UA) Urine Ketones Urine Blood Urine Nitrite Urine Bilirubin Urine Urobilinogen Ur Leukocyte Esterase Urine WBC (Auto) Urine RBC (Auto) U Epithel Cells (Auto) Urine Bacteria (Auto) Ur Transition Epith Cell Urine Mucus Blood Type Antibody Screen 02/15/18 02/16/18 02/16/18 20:54 05:10 05:13 WBC 1.3 L* RBC 2.73 L Hgb 8.2 L Hct 23.5 L MCV 86 MCH 30 MCHC 35 H RDW 14.2 Plt Count 219 Lymph % (Auto) [place] % (Auto) Behavioral Psychologist Add Manual Diff Complete Total Counted 25 Seg Neutrophils % Behavioral Psychologist Seg Neuts % (Manual) 4.0 L Band Neutrophils % 16.0 Lymphocytes % (Manual) 52.0 H Reactive Lymphs % (Man) 0 Monocytes % (Manual) 28.0 H Eosinophils % (Manual) 0 Basophils % (Manual) 0 Metamyelocytes % 0 Myelocytes % 0 Promyelocytes % 0 Blast Cells % 0 Nucleated RBC % Not Reportable Seg Neutrophils # Man 0.1 L Band Neutrophils # 0.2 Lymphocytes # (Manual) 0.7 L Abs React Lymphs (Man) 0.0 Monocytes # (Manual) 0.4 Eosinophils # (Manual) 0.0 Basophils # (Manual) 0.0 Metamyelocytes # 0.0 Myelocytes # 0.0 Promyelocytes # 0.0 Blast Cells # 0.0 Pathologist Review TNR WBC Morphology Not Reportable Hypersegmented Neuts Not Reportable Hyposegmented Neuts Not Reportable Hypogranular Neuts Not Reportable Smudge Cells Not Reportable Toxic Granulation Not Reportable Toxic Vacuolation Not Reportable Dohle Bodies Not Reportable Pelger-Huet Anomaly Not Reportable Lucio Rods Not Reportable Platelet Estimate Consistent w auto Clumped Platelets Not Reportable Plt Clumps, EDTA Not Reportable Large Platelets Not Reportable Giant Platelets Not Reportable Platelet Satelliting Not Reportable Plt Morphology Comment Not Reportable RBC Morphology Not Reportable Dimorphic RBCs Not Reportable Polychromasia Not Reportable Hypochromasia Not Reportable Poikilocytosis Not Reportable Anisocytosis Few Microcytosis Not Reportable Macrocytosis Not Reportable Spherocytes Rare Pappenheimer Bodies Not Reportable Sickle Cells Not Reportable Target Cells Few Tear Drop Cells Not Reportable Ovalocytes Not Reportable Helmet Cells Not Reportable Patel-Katy Bodies Not Reportable [place] Rings Not Reportable [place] Cells Not Reportable Bite Cells Not Reportable Crenated Cell Not Reportable Elliptocytes Not Reportable Acanthocytes (Spur) Not Reportable Rouleaux Rare Hemoglobin C Crystals Not Reportable Schistocytes Not Reportable Malaria parasites Not Reportable Roger Bodies Not Reportable Hem Pathologist Commnt No PT INR VBG pH Sodium Potassium Chloride Carbon Dioxide Anion Gap BUN Creatinine Estimated GFR BUN/Creatinine Ratio Glucose Lactic Acid Calcium Total Bilirubin AST ALT Alkaline Phosphatase Total Protein Albumin Albumin/Globulin Ratio HCG, Qual Urine Color Yellow Urine Turbidity Clear Urine pH 6.0 Ur Specific [place] 1.013 Urine Protein <15 mg/dl Urine Glucose (UA) Neg Urine Ketones Neg Urine Blood Sm Urine Nitrite Neg Urine Bilirubin Neg Urine Urobilinogen < 2.0 Ur Leukocyte Esterase Lg Urine WBC (Auto) 76.0 H Urine RBC (Auto) 5.0 U Epithel Cells (Auto) 3.0 Urine Bacteria (Auto) 1+ Ur Transition Epith Cell 20 Urine Mucus Few Blood Type O POSITIVE Antibody Screen Negative 02/16/18 02/16/18 05:13 05:13 WBC RBC Hgb Hct MCV MCH MCHC RDW Plt Count Lymph % (Auto) [place] % (Auto) Add Manual Diff Total Counted Seg Neutrophils % Seg Neuts % (Manual) Band Neutrophils % Lymphocytes % (Manual) Reactive Lymphs % (Man) Monocytes % (Manual) Eosinophils % (Manual) Basophils % (Manual) Metamyelocytes % Myelocytes % Promyelocytes % Blast Cells % Nucleated RBC % Seg Neutrophils # Man Band Neutrophils # Lymphocytes # (Manual) Abs React Lymphs (Man) Monocytes # (Manual) Eosinophils # (Manual) Basophils # (Manual) Metamyelocytes # Myelocytes # Promyelocytes # Blast Cells # Pathologist Review WBC Morphology Hypersegmented Neuts Hyposegmented Neuts Hypogranular Neuts Smudge Cells Toxic Granulation Toxic Vacuolation Dohle Bodies Pelger-Huet Anomaly Lucio Rods Platelet Estimate Clumped Platelets Plt Clumps, EDTA Large Platelets Giant Platelets Platelet Satelliting Plt Morphology Comment RBC Morphology Dimorphic RBCs Polychromasia Hypochromasia Poikilocytosis Anisocytosis Microcytosis Macrocytosis Spherocytes Pappenheimer Bodies Sickle Cells Target Cells Tear Drop Cells Ovalocytes Helmet Cells Patel-Katy Bodies [place] Rings [place] Cells Bite Cells Crenated Cell Elliptocytes Acanthocytes (Spur) Rouleaux Hemoglobin C Crystals Schistocytes Malaria parasites Roger Bodies Hem Pathologist Commnt PT INR VBG pH Sodium 135 L Potassium 3.1 L Chloride 100.6 Carbon Dioxide 20 L Anion Gap 18 BUN 19 H Creatinine 1.5 H Estimated GFR 48 BUN/Creatinine Ratio 13 Glucose 144 H Lactic Acid 1.50 Calcium 7.0 L D Total Bilirubin AST ALT Alkaline Phosphatase Total Protein Albumin Albumin/Globulin Ratio HCG, Qual Urine Color Urine Turbidity Urine pH Ur Specific [place] Urine Protein Urine Glucose (UA) Urine Ketones Urine Blood Urine Nitrite Urine Bilirubin Urine Urobilinogen Ur Leukocyte Esterase Urine WBC (Auto) Urine RBC (Auto) U Epithel Cells (Auto) Urine Bacteria (Auto) Ur Transition Epith Cell Urine Mucus Blood Type Antibody Screen
[2018-02-16] MEDS ORDERED: VANCOMYCIN PHARMACY TO DOSE IV SCH (13:00)
[2018-02-16] MEDS: GRANIX SUB-Q SCH (13:25)
[2018-02-16] MEDS: DIFLUCAN/NS 100 MG/50 ML 100 MG/50 ML BAG IV SCH (18:40)
--- NOTE | 2018-02-16 20:04 | Progress Note ---
Assessment and Plan - Patient Problems (1) Hypokalemia Current Visit: Yes Status: Acute Plan to address problem: Most likely secondary to GI loss. We'll replace by mouth at this particular time. Repeat Chem-7 in a.m. (2) Hypotension Current Visit: Yes Status: Acute Qualifiers: Hypotension type: other hypotension type Qualified Code(s): I95.89 - Other hypotension Plan to address problem: Resolving secondary to volume loss. Resolved with IV volume replacement. And treatment of underlying etiology infection. (3) Neutropenic fever Current Visit: Yes Status: Acute Plan to address problem: A jaimes with neutropenic fever we have begun neutropenic precautions. Patient on vancomycin and cefepime will add Diflucan at this particular time. Especially since neutropenia progressed somewhat over the last 24 hours. Recently started on Granix continue to monitor culture data continue IV antibiotics and supportive care. (4) Sepsis Current Visit: Yes Status: Acute Qualifiers: Sepsis type: sepsis due to unspecified organism Qualified Code(s): A41.9 - Sepsis, unspecified organism (5) Metastatic breast cancer Current Visit: No Status: Acute Plan to address problem: Patient being followed by oncology Dr. Farias. See her previous note. (6) UTI (urinary tract infection) Current Visit: Yes Status: Acute Qualifiers: Urinary tract infection type: acute cystitis Hematuria presence: without hematuria Qualified Code(s): N30.00 - Acute cystitis without hematuria Plan to address problem: UTI could possibly be etiology with treating with cefepime also treated for MRSA and adequate treatment for fungal etiologies. (7) Acute prerenal azotemia Current Visit: Yes Status: Acute Plan to address problem: Regular to volume loss UTI. Treat with IV volume replacement and correction of electrolytes. History Interval history: Patient states she feels a little better. Hospital course complicated by low- grade fever. Also hypokalemia. Hospitalist Physical - Constitutional Vitals: Temp Pulse Resp BP Pulse Ox 99.2 F 117 H 18 111/74 100 02/16/18 16:43 02/16/18 16:43 02/16/18 16:43 02/16/18 16:43 02/16/18 16:43 General appearance: Present: no acute distress - EENT Eyes: Present: PERRL, EOM intact ENT: hearing intact, clear oral mucosa, dentition normal, no poor dentition, no thrush, no ulcerations - Neck Neck: Present: supple, normal ROM - Respiratory Respiratory effort: normal Respiratory: bilateral: CTA - Cardiovascular Rhythm: regular - Extremities Extremities: no ischemia, pulses intact, pulses symmetrical, No edema, normal temperature, normal color, Full ROM Peripheral Pulses: within normal limits - Abdominal General gastrointestinal: soft, non-tender, non-distended, no hepatomegaly, no splenomegaly, no mass - Integumentary Integumentary: Present: clear, warm, dry - Psychiatric Psychiatric: appropriate mood/affect, intact judgment & insight, memory intact - Neurologic Neurologic: CNII-XII intact, moves all extremities Results - Labs CBC & Chem 7: 02/16/18 05:13 02/16/18 05:13 Labs: Laboratory Last Values WBC 1.3 K/mm3 (4.5-11.0) L* 02/16/18 05:13 RBC 2.73 M/mm3 (3.65-5.03) L 02/16/18 05:13 Hgb 8.2 gm/dl (10.1-14.3) L 02/16/18 05:13 Hct 23.5 % (30.3-42.9) L 02/16/18 05:13 MCV 86 fl (79-97) 02/16/18 05:13 MCH 30 pg (28-32) 02/16/18 05:13 MCHC 35 % (30-34) H 02/16/18 05:13 RDW 14.2 % (13.2-15.2) 02/16/18 05:13 Plt Count 219 K/mm3 (140-440) 02/16/18 05:13 Lymph % (Auto) [employer]iler Rep[employer] Supervisor 02/15/18 18:26 [place] % (Auto) Boiler Repair Supervisor 02/16/18 05:13 Add Manual Diff Complete 02/16/18 05:13 Total Counted 25 02/16/18 05:13 Seg Neutrophils % Boiler Repair Supervisor 02/16/18 05:13 Seg Neuts % (Manual) 4.0 % (40.0-70.0) L 02/16/18 05:13 Band Neutrophils % 16.0 % 02/16/18 05:13 Lymphocytes % (Manual) 52.0 % (13.4-35.0) H 02/16/18 05:13 Reactive Lymphs % (Man) 0 % 02/16/18 05:13 Monocytes % (Manual) 28.0 % (0.0-7.3) H 02/16/18 05:13 Eosinophils % (Manual) 0 % (0.0-4.3) 02/16/18 05:13 Basophils % (Manual) 0 % (0.0-1.8) 02/16/18 05:13 Metamyelocytes % 0 % 02/16/18 05:13 Myelocytes % 0 % 02/16/18 05:13 Promyelocytes % 0 % 02/16/18 05:13 Blast Cells % 0 % 02/16/18 05:13 Nucleated RBC % Not Reportable 02/16/18 05:13 Seg Neutrophils # Man 0.1 K/mm3 (1.8-7.7) L 02/16/18 05:13 Band Neutrophils # 0.2 K/mm3 02/16/18 05:13 Lymphocytes # (Manual) 0.7 K/mm3 (1.2-5.4) L 02/16/18 05:13 Abs React Lymphs (Man) 0.0 K/mm3 02/16/18 05:13 Monocytes # (Manual) 0.4 K/mm3 (0.0-0.8) 02/16/18 05:13 Eosinophils # (Manual) 0.0 K/mm3 (0.0-0.4) 02/16/18 05:13 Basophils # (Manual) 0.0 K/mm3 (0.0-0.1) 02/16/18 05:13 Metamyelocytes # 0.0 K/mm3 02/16/18 05:13 Myelocytes # 0.0 K/mm3 02/16/18 05:13 Promyelocytes # 0.0 K/mm3 02/16/18 05:13 Blast Cells # 0.0 K/mm3 02/16/18 05:13 Pathologist Review TNR 02/16/18 05:13 WBC Morphology Not Reportable 02/16/18 05:13 Hypersegmented Neuts Not Reportable 02/16/18 05:13 Hyposegmented Neuts Not Reportable 02/16/18 05:13 Hypogranular Neuts Not Reportable 02/16/18 05:13 Smudge Cells Not Reportable 02/16/18 05:13 Toxic Granulation Not Reportable 02/16/18 05:13 Toxic Vacuolation Not Reportable 02/16/18 05:13 Dohle Bodies Not Reportable 02/16/18 05:13 Pelger-Huet Anomaly Not Reportable 02/16/18 05:13 Lucoi Rods Not Reportable 02/16/18 05:13 Platelet Estimate Consistent w auto 02/16/18 05:13 Clumped Platelets Not Reportable 02/16/18 05:13 Plt Clumps, EDTA Not Reportable 02/16/18 05:13 Large Platelets Not Reportable 02/16/18 05:13 Giant Platelets Not Reportable 02/16/18 05:13 Platelet Satelliting Not Reportable 02/16/18 05:13 Plt Morphology Comment Not Reportable 02/16/18 05:13 RBC Morphology Not Reportable 02/16/18 05:13 Dimorphic RBCs Not Reportable 02/16/18 05:13 Polychromasia Not Reportable 02/16/18 05:13 Hypochromasia Not Reportable 02/16/18 05:13 Poikilocytosis Not Reportable 02/16/18 05:13 Anisocytosis Few 02/16/18 05:13 Microcytosis Not Reportable 02/16/18 05:13 Macrocytosis Not Reportable 02/16/18 05:13 Spherocytes Rare 02/16/18 05:13 Pappenheimer Bodies Not Reportable 02/16/18 05:13 Sickle Cells Not Reportable 02/16/18 05:13 Target Cells Few 02/16/18 05:13 Tear Drop Cells Not Reportable 02/16/18 05:13 Ovalocytes Not Reportable 02/16/18 05:13 Helmet Cells Not Reportable 02/16/18 05:13 Patel-[place] Bodies Not Reportable 02/16/18 05:13 Percy Rings Not Reportable 02/16/18 05:13 Sheila Cells Not Reportable 02/16/18 05:13 Bite Cells Not Reportable 02/16/18 05:13 Crenated Cell Not Reportable 02/16/18 05:13 Elliptocytes Not Reportable 02/16/18 05:13 Acanthocytes (Spur) Not Reportable 02/16/18 05:13 Rouleaux Rare 02/16/18 05:13 Hemoglobin C Crystals Not Reportable 02/16/18 05:13 Schistocytes Not Reportable 02/16/18 05:13 Malaria parasites Not Reportable 02/16/18 05:13 Roger Bodies Not Reportable 02/16/18 05:13 Hem Pathologist Commnt No 02/16/18 05:13 PT 13.8 Sec. (12.2-14.9) 02/15/18 18:26 INR 1.01 (0.87-1.13) 02/15/18 18:26 VBG pH 7.400 (7.320-7.420) 02/15/18 18:26 Sodium 135 mmol/L (137-145) L 02/16/18 05:13 Potassium 3.1 mmol/L (3.6-5.0) L 02/16/18 05:13 Chloride 100.6 mmol/L (98-107) 02/16/18 05:13 Carbon Dioxide 20 mmol/L (22-30) L 02/16/18 05:13 Anion Gap 18 mmol/L 02/16/18 05:13 BUN 19 mg/dL (7-17) H 02/16/18 05:13 Creatinine 1.5 mg/dL (0.7-1.2) H 02/16/18 05:13 Estimated GFR 48 ml/min 02/16/18 05:13 BUN/Creatinine Ratio 13 % 02/16/18 05:13 Glucose 144 mg/dL (65-100) H 02/16/18 05:13 Lactic Acid 1.50 mmol/L (0.7-2.0) 02/16/18 05:13 Calcium 7.0 mg/dL (8.4-10.2) L D 02/16/18 05:13 Total Bilirubin 0.80 mg/dL (0.1-1.2) 02/15/18 18:26 AST 16 units/L (5-40) 02/15/18 18:26 ALT 18 units/L (7-56) 02/15/18 18:26 Alkaline Phosphatase 59 units/L (35-129) 02/15/18 18:26 Total Protein 7.0 g/dL (6.3-8.2) 02/15/18 18:26 Albumin 3.5 g/dL (3.9-5) L 02/15/18 18:26 Albumin/Globulin Ratio 1.0 % 02/15/18 18:26 HCG, Qual Negative (Negative) 02/15/18 18:26 Urine Color Yellow (Yellow) 02/15/18 20:54 Urine Turbidity Clear (Clear) 02/15/18 20:54 Urine pH 6.0 (5.0-7.0) 02/15/18 20:54 Ur Specific [place] 1.013 (1.003-1.030) 02/15/18 20:54 Urine Protein <15 mg/dl mg/dL (Negative) 02/15/18 20:54 Urine Glucose (UA) Neg mg/dL (Negative) 02/15/18 20:54 Urine Ketones Neg mg/dL (Negative) 02/15/18 20:54 Urine Blood Sm (Negative) 02/15/18 20:54 Urine Nitrite Neg (Negative) 02/15/18 20:54 Urine Bilirubin Neg (Negative) 02/15/18 20:54 Urine Urobilinogen < 2.0 mg/dL (<2.0) 02/15/18 20:54 Ur Leukocyte Esterase Lg (Negative) 02/15/18 20:54 Urine WBC (Auto) 76.0 /HPF (0.0-6.0) H 02/15/18 20:54 Urine RBC (Auto) 5.0 /HPF (0.0-6.0) 02/15/18 20:54 U Epithel Cells (Auto) 3.0 /HPF (0-13.0) 02/15/18 20:54 Urine Bacteria (Auto) 1+ /HPF (Negative) 02/15/18 20:54 Ur Transition Epith Cell 20 /HPF 02/15/18 20:54 Urine Mucus Few /HPF 02/15/18 20:54 Blood Type O POSITIVE 02/16/18 05:10 Antibody Screen Negative 02/16/18 05:10
[2018-02-16] MEDS ORDERED: K-DUR PO NR (20:07)
[2018-02-16] MEDS ORDERED: COMPAZINE IV PRN (20:51)
[2018-02-16] MEDS ORDERED: VANCOMYCIN 1,250 MG in NACL 0.9% 250ML 250 ML IV SCH (22:00)
[2018-02-16] MEDS: MAXIPIME 2 GM in NACL 0.9% 20 ML IV SCH (22:38)
[2018-02-17] MEDS ORDERED: XANAX PO ONE (00:08)
[2018-02-17] MEDS: VANCOMYCIN 1,250 MG in NACL 0.9% 250ML 250 ML IV SCH (01:12)
[2018-02-17] MEDS: NACL 0.9% 1000 ML 1,000 ML IV SCH ×2 (02:49→10:02)
[2018-02-17 07:43] LABS: Hematocrit 23.6 % (30.3-42.9); Mean Corpuscular HGB Conc 34 % (30-34); Mean Corpuscular Hemoglobin 30 pg (28-32); Mean Corpuscular Volume 88 fl (79-97); Platelet Count 271 K/mm3 (140-440); Red Blood Count 2.69 M/mm3 (3.65-5.03)
[2018-02-17 08:08] LABS: Albumin 2.5 g/dL (3.9-5); BUN/Creatinine Ratio 8; Blood Urea Nitrogen 9 mg/dL (7-17)
[2018-02-17 08:30] LABS: Alanine Aminotransferase < 5 units/L (7-56)
[2018-02-17 08:33] LABS: Calcium 8.3 mg/dL (8.4-10.2); Hemolysis Index 1
[2018-02-17 09:05] LABS: Anisocytosis 1+; Band Neutrophils # (Manual) 1.1 K/mm3; Basophils % (Manual) 0 % (0.0-1.8); Eosinophils % (Manual) 0 % (0.0-4.3); Platelet Estimate Consistent w Auto; Total Cells Counted 100
--- NOTE | 2018-02-17 10:02 | Hem/Onc Progress Note ---
Assessment and Plan We will continue antibiotics. Neupogen has been started. Would recommend ID evaluation. Port may need to be removed.. Discussed with the patient. Subjective Date of service: 02/17/18 Interval history: Patient known to me. Metastatic breast cancer. She got admitted with with fevers. She is neutropenic. The culture gram-positive cocci in clusters. She is on empiric antibiotics. Patient feels better. Blood cultures positive for gram-positive cocci on both draws Objective - Constitutional Vitals: Last Vital Signs Temp 102.8 F H 02/17/18 08:15 Pulse 157 H 02/17/18 08:15 Resp 18 02/17/18 08:15 BP 110/68 02/17/18 08:15 Pulse Ox 100 02/17/18 08:39 General appearance: no acute distress Performance status: 3-limited selfcare - Neck Neck: supple - Respiratory Respiratory effort: Positive: normal - Breasts Breasts: left: change in shape (much improved) - Cardiovascular Rhythm: regular - Gastrointestinal General gastrointestinal: Present: soft - Labs Lab Results: Laboratory Results - last 24 hr 02/17/18 02/17/18 02/17/18 05:30 07:22 07:22 WBC 6.3 RBC 2.69 L Hgb 8.0 L Hct 23.6 L MCV 88 MCH 30 MCHC 34 RDW 15.0 Plt Count 271 [place] % (Auto) Crate Icer Add Manual Diff Complete Total Counted 100 Seg Neuts % (Manual) 19.0 L Band Neutrophils % 18.0 Lymphocytes % (Manual) 27.0 Reactive Lymphs % (Man) 0 Monocytes % (Manual) 32.0 H Eosinophils % (Manual) 0 Basophils % (Manual) 0 Metamyelocytes % 4.0 Myelocytes % 0 Promyelocytes % 0 Blast Cells % 0 Nucleated RBC % Not Reportable Seg Neutrophils # Man 1.2 L Band Neutrophils # 1.1 Lymphocytes # (Manual) 1.7 Abs React Lymphs (Man) 0.0 Monocytes # (Manual) 2.0 H Eosinophils # (Manual) 0.0 Basophils # (Manual) 0.0 Metamyelocytes # 0.3 Myelocytes # 0.0 Promyelocytes # 0.0 Blast Cells # 0.0 WBC Morphology Not Reportable Hypersegmented Neuts Not Reportable Hyposegmented Neuts Not Reportable Hypogranular Neuts Not Reportable Smudge Cells Not Reportable Toxic Granulation Not Reportable Toxic Vacuolation Not Reportable Dohle Bodies Not Reportable Pelger-Huet Anomaly Not Reportable Lucio Rods Not Reportable Platelet Estimate Consistent w auto Clumped Platelets Not Reportable Plt Clumps, EDTA Not Reportable Large Platelets Not Reportable Giant Platelets Not Reportable Platelet Satelliting Not Reportable Plt Morphology Comment Not Reportable RBC Morphology Not Reportable Dimorphic RBCs Not Reportable Polychromasia Not Reportable Hypochromasia Not Reportable Poikilocytosis Not Reportable Anisocytosis 1+ Microcytosis Not Reportable Macrocytosis Not Reportable Spherocytes Not Reportable Pappenheimer Bodies Not Reportable Sickle Cells Not Reportable Target Cells Not Reportable Tear Drop Cells Not Reportable Ovalocytes Not Reportable Helmet Cells Not Reportable Patel-[place] Bodies Not Reportable [place] Rings Not Reportable Sheila Cells Not Reportable Bite Cells Not Reportable Crenated Cell Not Reportable Elliptocytes Not Reportable Acanthocytes (Spur) Not Reportable Rouleaux Not Reportable Hemoglobin C Crystals Not Reportable Schistocytes Not Reportable Malaria parasites Not Reportable Roger Bodies Not Reportable Hem Pathologist Commnt No Sodium 134 L 136 L Potassium 3.6 4.1 Chloride 102.4 101.7 Carbon Dioxide 16 L 19 L Anion Gap 19 19 BUN 7 9 Creatinine 1.3 H 1.1 Estimated GFR 56 > 60 BUN/Creatinine Ratio 5 8 Glucose 126 H 115 H Calcium 8.0 L 8.3 L Total Bilirubin < 0.20 AST < 5 L ALT < 5 L Alkaline Phosphatase 60 Total Protein 6.3 Albumin 2.5 L Albumin/Globulin Ratio 0.7
[2018-02-17] MEDS: LOVENOX SUB-Q SCH (10:03)
[2018-02-17] MEDS: MAXIPIME 2 GM in NACL 0.9% 20 ML IV SCH ×2 (10:03→22:18)
[2018-02-17] MEDS: DIFLUCAN/NS 100 MG/50 ML 100 MG/50 ML BAG IV SCH (10:03)
[2018-02-17] MEDS: SODIUM CHLORIDE FLUSH SYRINGE 10 ML IV SCH ×2 (10:18→22:24)
--- NOTE | 2018-02-17 11:19 | Consultation ---
History of Present Illness - Reason for Consult Consult date: 02/17/18 bacteremia, neutropenia Requesting physician: BRUNO PATEL - History of Present Illness 37 y/o female with history of hypertension, metastatic breast cancer with a Port -A-cath placed in October 2017 for chemotherapy, started on chemo a week ago; admitted on 02/15/18 due to 48 hours history of subjective fever, malaise some weakness. Denies any cough, shortness of breath, nausea, abdominal pain, diarrhea. Denies any dysuria, hematuria, frequency. Denies any sick contacts. In the ED, initial temperature was 100.7, went to 1 and 1.2. Heart rate 129. Respiration 18. Blood pressure 100/63. Initial white count 1.4. Hemoglobin 9.6. Platelets 291. Creatinine 1.5. Lactic acid 1.5. Urinalysis showed large leukocyte esterase and white blood cells 76. Chest x-ray was negative. Microbiology: Blood cultures: 02/15 GPC in clusters 4 of 4 bottles Current Antimicrobials: Vancomycin Cefepime Fluconazole Previous Antimicrobials: Past History Past Medical History: other (metastatic breast cancer) Past Surgical History: No surgical history, Other (port placement) Social history: no significant social history Family history: no significant family history Medications and Allergies Allergies Allergy/AdvReac Type Severity Reaction Status Date / Time No Known Allergies Allergy Verified 02/15/18 18:23 Home Medications Medication Instructions Recorded Confirmed Last Taken Type Nebivolol HCl [Bystolic] 5 mg PO DAILY 12/02/17 02/16/18 02/15/18 History Edarbyclor 40-25 mg 1 tab PO DAILY 02/16/18 02/16/18 02/15/18 History Active Meds: Active Medications Acetaminophen (Tylenol) 650 mg PO Q4H PRN PRN Reason: Pain MILD(1-3)/Fever >100.5/PEREZ Last Admin: 02/16/18 13:27 Dose: 650 mg Acetaminophen (Tylenol) 650 mg AR Q4H PRN PRN Reason: Pain MILD(1-3)/Fever >100.5/PEREZ Enoxaparin Sodium (Lovenox) 40 mg SUB-Q QDAY OLIVE Last Admin: 02/17/18 10:03 Dose: 40 mg Sodium Chloride (Nacl 0.9% 1000 Ml) 1,000 mls @ 150 mls/hr IV DIRECT OLIVE Last Admin: 02/17/18 10:02 Dose: 150 mls/hr Vancomycin HCl 1,250 mg/ (Sodium Chloride) 262.5 mls @ 166.667 mls/hr IV Q24H [facility] Last Admin: 02/17/18 01:12 Dose: 166.667 mls/hr Cefepime HCl 2 gm/ Sodium (Chloride) 20 mls @ 2 mls/min IV Q12HR OLIVE Last Admin: 02/17/18 10:03 Dose: 2 mls/min Fluconazole (Diflucan/Ns 100 Mg/50 Ml) 100 mg in 50 mls @ 50 mls/hr IV Q24HR OLIVE Last Admin: 02/17/18 10:03 Dose: 50 mls/hr Prochlorperazine Edisylate (Compazine) 10 mg IV Q4H PRN PRN Reason: Nausea And Vomiting Last Admin: 02/16/18 21:37 Dose: 10 mg Sodium Chloride (Sodium Chloride Flush Syringe 10 Ml) 10 ml IV BID [facility] Last Admin: 02/17/18 10:18 Dose: 10 ml Sodium Chloride (Sodium Chloride Flush Syringe 10 Ml) 10 ml IV PRN PRN PRN Reason: LINE FLUSH Last Admin: 02/16/18 21:38 Dose: 10 ml Tbo-Filgrastim (Granix) 480 mcg SUB-Q DAILY [facility] Last Admin: 02/16/18 13:25 Dose: 480 mcg Vancomycin HCl (Vancomycin Pharmacy To Dose) 1 each IV PKCONSULT [facility] Review of Systems All systems: negative (as per HPI) Physical Examination - Physical Exam Narrative exam: General appearance: Alert in NAD, conversant Eyes: anicteric sclerae, moist conjunctivae; no lid-lag; PERRLA, alopecia HENT: Atraumatic; oropharynx clear with moist mucous membranes and no mucosal ulcerations/no oral thrush; normal hard and soft palate. Normal external ears. Neck: Trachea midline; supple, no thyromegaly or lymphadenopathy Lungs: CTA, with normal respiratory effort and no intercostal retractions CV: tachy Abdomen: Soft, non-tender; no masses or hepatosplenomegaly Extremities: No peripheral edema or extremity lymphadenopathy Skin: No rash. +right sided port w/o erythema, edema Psych: Appropriate affect, alert and oriented to person, place and time. Neuro: alert and oriented x 3. Moving all extermities Lines: No CVL / PICC - Constitutional Vitals: Vital Signs Temp Pulse Resp BP Pulse Ox 102.8 F H 157 H 18 110/68 100 02/17/18 08:15 02/17/18 08:15 02/17/18 08:15 02/17/18 08:15 02/17/18 08:39 Temperature -Last 24 Hours Temperature 102.8 F Temperature 100.9 F Temperature 100.4 F Temperature 99.2 F Temperature 102.7 F Temperature 99.8 F Results - Labs CBC & Chem 7: 02/17/18 07:22 02/17/18 07:22 Labs: Abnormal lab results 02/17/18 02/17/18 02/17/18 Range/Units 05:30 07:22 07:22 RBC 2.69 L (3.65-5.03) M/mm3 Hgb 8.0 L (10.1-14.3) gm/dl Hct 23.6 L (30.3-42.9) % Seg Neuts % (Manual) 19.0 L (40.0-70.0) % Monocytes % (Manual) 32.0 H (0.0-7.3) % Seg Neutrophils # Man 1.2 L (1.8-7.7) K/mm3 Monocytes # (Manual) 2.0 H (0.0-0.8) K/mm3 Sodium 134 L 136 L (137-145) mmol/L Carbon Dioxide 16 L 19 L (22-30) mmol/L Creatinine 1.3 H (0.7-1.2) mg/dL Glucose 126 H 115 H (65-100) mg/dL Calcium 8.0 L 8.3 L (8.4-10.2) mg/dL AST < 5 L (5-40) units/L ALT < 5 L (7-56) units/L Albumin 2.5 L (3.9-5) g/dL Assessment and Plan Assessment: 1) Sepsis: Present on admission, manifested by fever, tachycardia, hypotension, neutropenia. Etiology most likely GCP bacteremia +/- UTI. 2) GPC bacteremia: likely MRSA or MSSA, source ? port -Blood cx 02/15 GPC in clusters 4 of 4 bottles 3) Metastatic breast cancer - started on chemo a week ago 4) Port-A-cath placed in October 2017 for chemotherapy 5) UTI - Urinalysis showed large leukocyte esterase and white blood cells 76. Plan: -follow-up blood cultures -obtain urine culture -agree with port removal GRACE -repeat blood cx -TTE -continue vancomycin, cefepime and fluconazole for now -will require IV abx for 4 weeks at least -contact isolation until MRSA is r/o I am rounding tomorrow Thank you for your consultation, will follow up with you. Kaye Sher MD Infectious Diseases Specialist [facility] ([facility] M [phone] O [phone]
--- NOTE | 2018-02-17 11:51 | Progress Note ---
Assessment and Plan Sepsis with Septic Shock likely from infected Port Acute renal insufficiency UTI Met breast Cancer Neutrorpia improved Plan Blood culture yielded gram-positive cocci in 4 bottles Had Fluid bolus. Continue with maintence IV fluid Continue with IV vancomycin, cefepime and fluconazole Consulted and discussed with ID Lactate is nomal. Consulted and discussed with oncology Neutropenic precautions DVT prophalaxis Subjective Date of service: 02/17/18 Principal diagnosis: Sepsis, Left breast cancer Interval history: Pt seen adn examined. discussed with nursing staff. Still having fever. nO N/V. Discusse with pt's family member in the room Objective - Exam Narrative Exam: Constitutional: Reports on the right chest wall. Febrile. Well-nourished well- developed. In no distress Head: Normocephalic atraumatic Eyes: Pupils are equal round and reactive to light Nose: No enlarged turbinates, no septal deviation. Mouth: Moist mucous membranes. Neck: Supple no thyromegaly. No bruit. No JVD Heart: Regular rate and rhythm, S1-S2 abnormal. No rubs murmurs or gallop Lungs: Clear to auscultation bilaterally no rales or rhonchi Abdomen: Soft, nontender. Bowel sound are present. Extremities: No edema no cyanosis and no clubbing. Neuro: Alert oriented Oriented x3. No focal sensory or motor deficit. Skin: No rashes no hyperemic spots Psychiatry: Euthymic. Calm. - Constitutional Vitals: Vital Signs - 12hr 02/17/18 02/17/18 02/17/18 00:48 04:00 08:15 Temperature 100.9 F H 102.8 F H Pulse Rate 158 H 140 H 157 H Respiratory 18 18 18 Rate Blood Pressure 137/86 110/68 Blood Pressure 103/63 [Left] O2 Sat by Pulse 100 100 100 Oximetry 02/17/18 08:39 Temperature Pulse Rate Respiratory Rate Blood Pressure Blood Pressure [Left] O2 Sat by Pulse 100 Oximetry - Labs CBC & Chem 7: 02/17/18 07:22 02/17/18 07:22 Labs: Abnormal lab results 02/17/18 02/17/18 02/17/18 Range/Units 05:30 07:22 07:22 RBC 2.69 L (3.65-5.03) M/mm3 Hgb 8.0 L (10.1-14.3) gm/dl Hct 23.6 L (30.3-42.9) % Seg Neuts % (Manual) 19.0 L (40.0-70.0) % Monocytes % (Manual) 32.0 H (0.0-7.3) % Seg Neutrophils # Man 1.2 L (1.8-7.7) K/mm3 Monocytes # (Manual) 2.0 H (0.0-0.8) K/mm3 Sodium 134 L 136 L (137-145) mmol/L Carbon Dioxide 16 L 19 L (22-30) mmol/L Creatinine 1.3 H (0.7-1.2) mg/dL Glucose 126 H 115 H (65-100) mg/dL Calcium 8.0 L 8.3 L (8.4-10.2) mg/dL AST < 5 L (5-40) units/L ALT < 5 L (7-56) units/L Albumin 2.5 L (3.9-5) g/dL
--- NOTE | 2018-02-17 12:52 | Consultation ---
History of Present Illness Consult date: 02/17/18 Chief complaint: Infected port - History of present illness History of present illness: 37-year-old female with a past medical history of metastatic breast cancer who is currently undergoing chemotherapy. She had a port placed by me on November 2017. The patient was sent into the hospital by Dr. Farias because of neutropenia and fever. The patient states that she is feeling better today. Blood cultures obtained are positive for staph and it is possible that her port is infected. Infectious disease was counseled and recommends removal of the port. Surgeries consult for removal. Most recent temperature is 102.8. Past History Past Medical History: other (metastatic breast cancer) Past Surgical History: Other (port placement) Social history: no significant social history Family history: no significant family history Medications and Allergies Allergies Allergy/AdvReac Type Severity Reaction Status Date / Time No Known Allergies Allergy Verified 02/15/18 18:23 Home Medications Medication Instructions Recorded Confirmed Last Taken Type Nebivolol HCl [Bystolic] 5 mg PO DAILY 12/02/17 02/16/18 02/15/18 History Edarbyclor 40-25 mg 1 tab PO DAILY 02/16/18 02/16/18 02/15/18 History Active Meds: Active Medications Acetaminophen (Tylenol) 650 mg PO Q4H PRN PRN Reason: Pain MILD(1-3)/Fever >100.5/PEREZ Last Admin: 02/16/18 13:27 Dose: 650 mg Acetaminophen (Tylenol) 650 mg PA Q4H PRN PRN Reason: Pain MILD(1-3)/Fever >100.5/PEREZ Enoxaparin Sodium (Lovenox) 40 mg SUB-Q QDAY [facility] Last Admin: 02/17/18 10:03 Dose: 40 mg Sodium Chloride (Nacl 0.9% 1000 Ml) 1,000 mls @ 150 mls/hr IV DIRECT [facility] Last Admin: 02/17/18 10:02 Dose: 150 mls/hr Vancomycin HCl 1,250 mg/ (Sodium Chloride) 262.5 mls @ 166.667 mls/hr IV Q24H [facility] Last Admin: 02/17/18 01:12 Dose: 166.667 mls/hr Cefepime HCl 2 gm/ Sodium (Chloride) 20 mls @ 2 mls/min IV Q12HR [facility] Last Admin: 02/17/18 10:03 Dose: 2 mls/min Fluconazole (Diflucan/Ns 100 Mg/50 Ml) 100 mg in 50 mls @ 50 mls/hr IV Q24HR [facility] Last Admin: 02/17/18 10:03 Dose: 50 mls/hr Prochlorperazine Edisylate (Compazine) 10 mg IV Q4H PRN PRN Reason: Nausea And Vomiting Last Admin: 02/16/18 21:37 Dose: 10 mg Sodium Chloride (Sodium Chloride Flush Syringe 10 Ml) 10 ml IV BID [facility] Last Admin: 02/17/18 10:18 Dose: 10 ml Sodium Chloride (Sodium Chloride Flush Syringe 10 Ml) 10 ml IV PRN PRN PRN Reason: LINE FLUSH Last Admin: 02/16/18 21:38 Dose: 10 ml Tbo-Filgrastim (Granix) 480 mcg SUB-Q DAILY [facility] Last Admin: 02/16/18 13:25 Dose: 480 mcg Vancomycin HCl (Vancomycin Pharmacy To Dose) 1 each IV PKCONSULT [facility] Review of Systems All systems: negative (10 point review systems was performed and negative except for that listed in HPI) Exam Vital Signs Temp Pulse Resp BP Pulse Ox 100.7 F H 129 H 18 100/63 98 02/15/18 18:13 02/15/18 18:13 02/15/18 18:13 02/15/18 18:13 02/15/18 18:13 Narrative exam: General: Awake, alert, oriented 3. No apparent distress Chest: Right sided chest wall port, access needle in place. No cellulitis or erythema. Resp: Breathing even and nonlabored CV: S1, S2 present Results - Labs 02/17/18 07:22 02/17/18 07:22 Abnormal lab results 02/17/18 02/17/18 02/17/18 Range/Units 05:30 07:22 07:22 RBC 2.69 L (3.65-5.03) M/mm3 Hgb 8.0 L (10.1-14.3) gm/dl Hct 23.6 L (30.3-42.9) % Seg Neuts % (Manual) 19.0 L (40.0-70.0) % Monocytes % (Manual) 32.0 H (0.0-7.3) % Seg Neutrophils # Man 1.2 L (1.8-7.7) K/mm3 Monocytes # (Manual) 2.0 H (0.0-0.8) K/mm3 Sodium 134 L 136 L (137-145) mmol/L Carbon Dioxide 16 L 19 L (22-30) mmol/L Creatinine 1.3 H (0.7-1.2) mg/dL Glucose 126 H 115 H (65-100) mg/dL Calcium 8.0 L 8.3 L (8.4-10.2) mg/dL AST < 5 L (5-40) units/L ALT < 5 L (7-56) units/L Albumin 2.5 L (3.9-5) g/dL Diabetes panel 02/17/18 02/17/18 Range/Units 05:30 07:22 Sodium 134 L 136 L (137-145) mmol/L Potassium 3.6 4.1 (3.6-5.0) mmol/L Chloride 102.4 101.7 (98-107) mmol/L Carbon Dioxide 16 L 19 L (22-30) mmol/L BUN 7 9 (7-17) mg/dL Creatinine 1.3 H 1.1 (0.7-1.2) mg/dL Glucose 126 H 115 H (65-100) mg/dL Calcium 8.0 L 8.3 L (8.4-10.2) mg/dL AST < 5 L (5-40) units/L ALT < 5 L (7-56) units/L Alkaline Phosphatase 60 (35-129) units/L Total Protein 6.3 (6.3-8.2) g/dL Albumin 2.5 L (3.9-5) g/dL Calcium panel 02/17/18 02/17/18 Range/Units 05:30 07:22 Calcium 8.0 L 8.3 L (8.4-10.2) mg/dL Albumin 2.5 L (3.9-5) g/dL Pituitary panel 02/17/18 02/17/18 Range/Units 05:30 07:22 Sodium 134 L 136 L (137-145) mmol/L Potassium 3.6 4.1 (3.6-5.0) mmol/L Chloride 102.4 101.7 (98-107) mmol/L Carbon Dioxide 16 L 19 L (22-30) mmol/L BUN 7 9 (7-17) mg/dL Creatinine 1.3 H 1.1 (0.7-1.2) mg/dL Glucose 126 H 115 H (65-100) mg/dL Calcium 8.0 L 8.3 L (8.4-10.2) mg/dL Adrenal panel 02/17/18 02/17/18 Range/Units 05:30 07:22 Sodium 134 L 136 L (137-145) mmol/L Potassium 3.6 4.1 (3.6-5.0) mmol/L Chloride 102.4 101.7 (98-107) mmol/L Carbon Dioxide 16 L 19 L (22-30) mmol/L BUN 7 9 (7-17) mg/dL Creatinine 1.3 H 1.1 (0.7-1.2) mg/dL Glucose 126 H 115 H (65-100) mg/dL Calcium 8.0 L 8.3 L (8.4-10.2) mg/dL Total Bilirubin < 0.20 (0.1-1.2) mg/dL AST < 5 L (5-40) units/L ALT < 5 L (7-56) units/L Alkaline Phosphatase 60 (35-129) units/L Total Protein 6.3 (6.3-8.2) g/dL Albumin 2.5 L (3.9-5) g/dL Assessment and Plan 37 yo F with breast cancer, currently on chemotherapy with bacteremia, neutropenia, r/o port infection Plan: 1. discussed with Dr. Farias and Dr. Rojas - patient will need port removed 2. Patient added to OR schedule for minor procedure. Will performed today. All risks, benefits, alternatives to surgery discussed and consent obtained for port removal. Will send tip culture after removal 3. Pt does not need to be NPO 4. c/w neutropenic precautions 5. c/w abx Thank you for this consultation, please call with questions or concerns.
[2018-02-17] MEDS ORDERED: MARCAINE 0.25% INFILTRATI ONE ×2 (14:32→15:13)
[2018-02-17] MEDS ORDERED: XYLOCAINE 1% 20 mL ONE (14:32)
[2018-02-17] MEDS ORDERED: NACL 0.9% IR ONE (15:12)
[2018-02-17] MEDS ORDERED: XYLOCAINE 1% 20 mL INFILTRATI ONE (15:13)
--- NOTE | 2018-02-17 15:46 | Post Operative Note ---
Date of procedure: 02/17/18 Pre-op diagnosis: bacteremia, suspected port infection Post-op diagnosis: same Findings: Intact removal of port without evidence of gross infection Procedure: Removal of right chest wall port a cath Anesthesia: local Surgeon: NEIL KRAMER Estimated blood loss: minimal Pathology: list (port and catheter) Specimen disposition: to lab Condition: stable Disposition: floor
[2018-02-17] MEDS: GRANIX SUB-Q SCH (16:01)
[2018-02-18] MEDS: VANCOMYCIN 1,250 MG in NACL 0.9% 250ML 250 ML IV SCH (00:24)
[2018-02-18 07:22] LABS: Hematocrit 23.5 % (30.3-42.9); Hemoglobin 7.9 gm/dl (10.1-14.3); Mean Corpuscular HGB Conc 33 % (30-34); Mean Corpuscular Hemoglobin 29 pg (28-32); Mean Corpuscular Volume 87 fl (79-97); Platelet Count 330 K/mm3 (140-440); Red Blood Count 2.72 M/mm3 (3.65-5.03); Red Cell Distribution Width 15.1 % (13.2-15.2)
[2018-02-18 07:38] LABS: Alanine Aminotransferase 18 units/L (7-56); Albumin 2.8 g/dL (3.9-5); Calcium 8.6 mg/dL (8.4-10.2); Hemolysis Index 8
[2018-02-18 08:08] LABS: BUN/Creatinine Ratio 7; Blood Urea Nitrogen 8 mg/dL (7-17)
[2018-02-18 08:48] LABS: Anisocytosis 1+; Band Neutrophils # (Manual) 5.7 K/mm3; Basophils % (Manual) 0 % (0.0-1.8); Eosinophils % (Manual) 0 % (0.0-4.3); Myelocytes # (Manual) 0.4 K/mm3; Total Cells Counted 100
[2018-02-18] MEDS: LOVENOX SUB-Q SCH (09:56)
[2018-02-18] MEDS: MAXIPIME 2 GM in NACL 0.9% 20 ML IV SCH (09:56)
[2018-02-18] MEDS ORDERED: VANCOMYCIN 1,250 MG in NACL 0.9% 250ML 250 ML IV SCH (10:00)
[2018-02-18] MEDS: SODIUM CHLORIDE FLUSH SYRINGE 10 ML IV SCH ×2 (10:00→22:09)
--- NOTE | 2018-02-18 12:07 | Progress Note ---
Assessment and Plan Assessment and Plan Sepsis with Septic Shock likely from infected Port MSSA-IV abx for 4 weeks after picc line is placed Acute renal insufficiency UTI Met breast Cancer Neutrorpia improved Plan Blood culture yielded gram-positive cocci in 4 bottles--- Per ID--stop vancomycin, cefepime and fluconazole for now -stop contact isolation no MRSA -stop neutropenic precautions -start cefazolin 2 g IV q8 hour total 4 weeks until 03/16/18. Sent to case management assistant. -place a PICC on 10/22 Had Fluid bolus. Continue with maintence IV fluid Continue with IV vancomycin, cefepime and fluconazole Consulted and discussed with ID Lactate is nomal. Consulted and discussed with oncology Neutropenic precautions Port removed yesterday DVT prophalaxis Await Case management to arrange for Outpatient IV abx for 4 weeks Subjective Date of service: 02/18/18 Principal diagnosis: Sepsis, Left breast cancer Interval history: Doing better Objective - Constitutional Vitals: Vital Signs - 12hr 02/18/18 02/18/18 02/18/18 05:00 05:09 09:57 Temperature 99.1 F Pulse Rate 127 H 127 H Respiratory 18 Rate Blood Pressure 111/68 O2 Sat by Pulse 100 100 Oximetry General appearance: Present: no acute distress, well-nourished - EENT Eyes: PERRL, EOM intact ENT: hearing intact, clear oral mucosa Ears: bilateral: normal - Neck Neck: supple, normal ROM - Respiratory Respiratory effort: normal Respiratory: bilateral: CTA - Breasts Breasts: normal - Cardiovascular Rhythm: regular Heart Sounds: Present: S1 & S2. Absent: gallop, rub Extremities: pulses intact, No edema, normal color, Full ROM - Gastrointestinal General gastrointestinal: Present: soft, non-tender, non-distended, normal bowel sounds - Genitourinary Female genitourinary: normal - Integumentary Integumentary: clear, warm, dry - Musculoskeletal Musculoskeletal: 1, strength equal bilaterally - Neurologic Neurologic: moves all extremities - Psychiatric Psychiatric: memory intact, appropriate mood/affect, intact judgment & insight - Labs CBC & Chem 7: 02/18/18 05:18 02/18/18 05:18 Labs: Abnormal lab results 02/17/18 02/18/18 02/18/18 Range/Units 13:01 05:18 05:18 WBC 19.7 H (4.5-11.0) K/mm3 RBC 2.72 L (3.65-5.03) M/mm3 Hgb 7.9 L (10.1-14.3) gm/dl Hct 23.5 L (30.3-42.9) % Lymphocytes % (Manual) 4.0 L (13.4-35.0) % Seg Neutrophils # Man 11.8 H (1.8-7.7) K/mm3 Lymphocytes # (Manual) 0.8 L (1.2-5.4) K/mm3 Carbon Dioxide 16 L (22-30) mmol/L POC Glucose 109 H (70-105) Phosphorus 1.80 L (2.5-4.5) mg/dL Magnesium 1.20 L (1.7-2.3) mg/dL Albumin 2.8 L (3.9-5) g/dL
[2018-02-18] MEDS: NACL 0.9% 1000 ML 1,000 ML IV SCH (12:09)
[2018-02-18] MEDS: DIFLUCAN/NS 100 MG/50 ML 100 MG/50 ML BAG IV SCH (12:43)
[2018-02-18] MEDS: GRANIX SUB-Q SCH (12:43)
--- NOTE | 2018-02-18 16:51 | Progress Note ---
Assessment and Plan 37 yo F s/p Removal of right chest wall port a cath, POD 1 1. Bacteremia 2. presumed port a cath infection Plan: 1. c/w abx per IF 2. prn pain control 3. await catheter tip cultures Thank you for this consultation, please call with questions or concerns. Subjective Date of service: 02/18/18 Narrative: Pt seen and examined. Feels well, has no pain. Objective Vital Signs - 12hr 02/18/18 02/18/18 02/18/18 05:00 05:09 09:28 Temperature 99.1 F 98.6 F Pulse Rate 127 H 127 H 125 H Respiratory 18 20 Rate Blood Pressure 111/68 113/75 O2 Sat by Pulse 100 100 Oximetry 02/18/18 02/18/18 09:57 12:27 Temperature Pulse Rate 116 H Respiratory Rate Blood Pressure O2 Sat by Pulse 100 Oximetry - General physical appearance Narrative Exam: Gen: AAOx3. NAd CV: S1, S2+ resp: even and unlabored Chest: R chest wall dressing removed and all packing removed. Wound is clean and dry, no bleeding or drainage. Periwound skin exhibits no signs of erythema. Wound reapproximated with steristrips. - Labs 02/18/18 05:18 02/18/18 05:18 Diabetes panel 02/18/18 Range/Units 05:18 Sodium 139 (137-145) mmol/L Potassium 3.6 (3.6-5.0) mmol/L Chloride 104.6 (98-107) mmol/L Carbon Dioxide 16 L (22-30) mmol/L BUN 8 (7-17) mg/dL Creatinine 1.2 (0.7-1.2) mg/dL Glucose 87 (65-100) mg/dL Calcium 8.6 (8.4-10.2) mg/dL AST 17 (5-40) units/L ALT 18 (7-56) units/L Alkaline Phosphatase 79 (35-129) units/L Total Protein 6.5 (6.3-8.2) g/dL Albumin 2.8 L (3.9-5) g/dL Calcium panel 02/18/18 Range/Units 05:18 Calcium 8.6 (8.4-10.2) mg/dL Phosphorus 1.80 L (2.5-4.5) mg/dL Albumin 2.8 L (3.9-5) g/dL Pituitary panel 02/18/18 Range/Units 05:18 Sodium 139 (137-145) mmol/L Potassium 3.6 (3.6-5.0) mmol/L Chloride 104.6 (98-107) mmol/L Carbon Dioxide 16 L (22-30) mmol/L BUN 8 (7-17) mg/dL Creatinine 1.2 (0.7-1.2) mg/dL Glucose 87 (65-100) mg/dL Calcium 8.6 (8.4-10.2) mg/dL Adrenal panel 02/18/18 Range/Units 05:18 Sodium 139 (137-145) mmol/L Potassium 3.6 (3.6-5.0) mmol/L Chloride 104.6 (98-107) mmol/L Carbon Dioxide 16 L (22-30) mmol/L BUN 8 (7-17) mg/dL Creatinine 1.2 (0.7-1.2) mg/dL Glucose 87 (65-100) mg/dL Calcium 8.6 (8.4-10.2) mg/dL Total Bilirubin 0.40 (0.1-1.2) mg/dL AST 17 (5-40) units/L ALT 18 (7-56) units/L Alkaline Phosphatase 79 (35-129) units/L Total Protein 6.5 (6.3-8.2) g/dL Albumin 2.8 L (3.9-5) g/dL
--- NOTE | 2018-02-18 17:53 | Progress Note ---
Assessment and Plan Assessment: 1) Sepsis: resolved. Etiology MSSA bacteremia +/- UTI. 2) MSSA bacteremia: source ? port -Blood cx 02/15 GPC in clusters 4 of 4 bottles -Blood cx 02/17 no growth -S/P port removal tip no growth -TTE no vegetations 3) Metastatic breast cancer - started on chemo a week ago 4) Port-A-cath placed in October 2017 for chemotherapy 5) UTI - Urinalysis showed large leukocyte esterase and white blood cells 76. Urine cx 10-100K mixed. Plan: -stop vancomycin, cefepime and fluconazole for now -stop contact isolation no MRSA -stop neutropenic precautions -start cefazolin 2 g IV q8 hour total 4 weeks until 03/16/18. Sent to porter sample case. -place a PICC on 10/22 Ok to d/c from ID stand point after IV abx set up Thank you for your consultation, will follow up with you. Kaye Sher MD Infectious Diseases Specialist [facility] [phone] Subjective Date of service: 02/18/18 Principal diagnosis: Sepsis, Left breast cancer Interval history: Microbiology: Blood cultures: 02/15 MSSA 4 of 4 bottles 02/17 ngtd Port tip 02/17 ngtd Current Antimicrobials: Vancomycin Cefepime Fluconazole Previous Antimicrobials: Objective - Constitutional Vitals: Vital Signs Temp Pulse Resp BP Pulse Ox 98.6 F 119 H 18 103/69 100 02/18/18 16:47 02/18/18 16:47 02/18/18 16:47 02/18/18 16:47 02/18/18 16:47 Temperature -Last 24 Hours Temperature 98.6 F Temperature 98.7 F Temperature 98.6 F Temperature 99.1 F Temperature 99.5 F Temperature 97.8 F - Labs CBC & Chem 7: 02/18/18 05:18 02/18/18 05:18 Labs: Abnormal lab results 02/18/18 02/18/18 Range/Units 05:18 05:18 WBC 19.7 H (4.5-11.0) K/mm3 RBC 2.72 L (3.65-5.03) M/mm3 Hgb 7.9 L (10.1-14.3) gm/dl Hct 23.5 L (30.3-42.9) % Lymphocytes % (Manual) 4.0 L (13.4-35.0) % Seg Neutrophils # Man 11.8 H (1.8-7.7) K/mm3 Lymphocytes # (Manual) 0.8 L (1.2-5.4) K/mm3 Carbon Dioxide 16 L (22-30) mmol/L Phosphorus 1.80 L (2.5-4.5) mg/dL Magnesium 1.20 L (1.7-2.3) mg/dL Albumin 2.8 L (3.9-5) g/dL
[2018-02-18] MEDS ORDERED: ceFAZolin 2 GM in NACL 0.9% 100 ML IV SCH (18:00)
[2018-02-18] MEDS: ANCEF/STERILE WATER 2 GM/20 ML 2 GM/20 ML SYRINGE IV SCH ×2 (19:14→22:08)
[2018-02-19 05:12] LABS: Hematocrit 21.8 % (30.3-42.9); Hemoglobin 7.2 gm/dl (10.1-14.3); Mean Corpuscular HGB Conc 33 % (30-34); Mean Corpuscular Hemoglobin 29 pg (28-32); Mean Corpuscular Volume 88 fl (79-97); Platelet Count 370 K/mm3 (140-440); Red Blood Count 2.48 M/mm3 (3.65-5.03); Red Cell Distribution Width 15.3 % (13.2-15.2)
[2018-02-19] MEDS: ANCEF/STERILE WATER 2 GM/20 ML 2 GM/20 ML SYRINGE IV SCH ×3 (05:31→23:19)
[2018-02-19 05:46] LABS: Alanine Aminotransferase 23 units/L (7-56); Albumin 2.8 g/dL (3.9-5); BUN/Creatinine Ratio 6; Blood Urea Nitrogen 7 mg/dL (7-17); Calcium 8.9 mg/dL (8.4-10.2); Hemolysis Index 3
[2018-02-19 06:06] LABS: Basophils % (Manual) 0 % (0.0-1.8); Eosinophils % (Manual) 0 % (0.0-4.3); Myelocytes # (Manual) 1.3 K/mm3; Total Cells Counted 100
[2018-02-19 06:08] LABS: Anisocytosis 1+; Platelet Estimate Consistent w Auto
[2018-02-19] MEDS: NACL 0.9% 1000 ML 1,000 ML IV SCH (10:07)
[2018-02-19] MEDS: LOVENOX SUB-Q SCH (10:07)
[2018-02-19] MEDS: SODIUM CHLORIDE FLUSH SYRINGE 10 ML IV SCH ×2 (10:07→23:16)
--- NOTE | 2018-02-19 11:29 | Progress Note ---
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 Now has Leukocytsis Plan Blood culture yielded gram-positive cocci in 4 bottles Continue with maintence IV fluid Continue with IV vancomycin, cefepime and fluconazole Blood trasfusion Consulted and discussed with ID who is still following pt Consulted oncology Neutropenic precautions DVT prophalaxis Subjective Date of service: 02/19/18 Principal diagnosis: Sepsis, Left breast cancer, UTI Interval history: Pt seen and examined. Discussed with nursing staff. No more fever. No N/V. reviewed lab and ECHO reports Objective - Exam Narrative Exam: Constitutional: Reports on the right chest wall. Febrile. Well-nourished well- developed. In no distress Head: Normocephalic atraumatic Eyes: Pupils are equal round and reactive to light Nose: No enlarged turbinates, no septal deviation. Mouth: Moist mucous membranes. Neck: Supple no thyromegaly. No bruit. No JVD Heart: Regular rate and rhythm, S1-S2 abnormal. No rubs murmurs or gallop Lungs: Clear to auscultation bilaterally no rales or rhonchi Abdomen: Soft, nontender. Bowel sound are present. Extremities: No edema no cyanosis and no clubbing. Neuro: Alert oriented Oriented x3. No focal sensory or motor deficit. Skin: No rashes no hyperemic spots Psychiatry: Euthymic. Calm. - Constitutional Vitals: Vital Signs - 12hr 02/19/18 02/19/18 02/19/18 00:12 00:31 04:03 Temperature 99.2 F Pulse Rate 122 H 122 H 114 H Respiratory 18 Rate Blood Pressure 116/63 107/63 Blood Pressure 116/63 [Left] O2 Sat by Pulse 100 100 100 Oximetry 02/19/18 02/19/18 02/19/18 05:00 05:23 07:39 Temperature 99.1 F Pulse Rate 114 H 117 H 110 H Respiratory 18 18 Rate Blood Pressure 117/74 Blood Pressure 107/63 [Left] O2 Sat by Pulse 100 99 Oximetry 02/19/18 08:00 Temperature 98.4 F Pulse Rate Respiratory Rate Blood Pressure Blood Pressure [Left] O2 Sat by Pulse Oximetry - Labs CBC & Chem 7: 02/19/18 03:50 02/19/18 03:50 Labs: Abnormal lab results 02/19/18 02/19/18 Range/Units 03:50 03:50 WBC 44.7 H* (4.5-11.0) K/mm3 RBC 2.48 L (3.65-5.03) M/mm3 Hgb 7.2 L (10.1-14.3) gm/dl Hct 21.8 L (30.3-42.9) % RDW 15.3 H (13.2-15.2) % Lymphocytes % (Manual) 5.0 L (13.4-35.0) % Seg Neutrophils # Man 23.7 H (1.8-7.7) K/mm3 Monocytes # (Manual) 3.1 H (0.0-0.8) K/mm3 Potassium 3.4 L (3.6-5.0) mmol/L Chloride 107.2 H (98-107) mmol/L Carbon Dioxide 17 L (22-30) mmol/L Alkaline Phosphatase 185 H (35-129) units/L Albumin 2.8 L (3.9-5) g/dL
--- NOTE | 2018-02-19 14:55 | Progress Note ---
Assessment and Plan 37 yo F s/p Removal of right chest wall port a cath, POD 1 1. Bacteremia 2. port a cath infection, cx - staph Plan: 1. c/w abx per ID 2. prn pain control 3. PICC per ID Patient may be discharged from surgery standpoint and follow up in surgery clinic in 10 days. Thank you for this consultation, please call with questions or concerns. Subjective Date of service: 02/19/18 Narrative: Pt seen and examined. c/o soreness near old port site. No f/c. Objective Vital Signs - 12hr 02/19/18 02/19/18 02/19/18 04:03 05:00 05:23 Temperature 99.1 F Pulse Rate 114 H 114 H 117 H Respiratory 18 Rate Blood Pressure 107/63 Blood Pressure 107/63 [Left] O2 Sat by Pulse 100 100 Oximetry 02/19/18 02/19/18 07:39 08:00 Temperature 98.4 F Pulse Rate 110 H Respiratory 18 Rate Blood Pressure 117/74 Blood Pressure [Left] O2 Sat by Pulse 99 Oximetry - General physical appearance Narrative Exam: Gen: AAOx3. NAD R chest wall: Steristrips in place - dressing c/d/i. No erythema, induration or fluctuance - Labs 02/19/18 03:50 02/19/18 03:50 Diabetes panel 02/19/18 Range/Units 03:50 Sodium 141 (137-145) mmol/L Potassium 3.4 L (3.6-5.0) mmol/L Chloride 107.2 H (98-107) mmol/L Carbon Dioxide 17 L (22-30) mmol/L BUN 7 (7-17) mg/dL Creatinine 1.2 (0.7-1.2) mg/dL Glucose 84 (65-100) mg/dL Calcium 8.9 (8.4-10.2) mg/dL AST 23 (5-40) units/L ALT 23 (7-56) units/L Alkaline Phosphatase 185 H (35-129) units/L Total Protein 6.3 (6.3-8.2) g/dL Albumin 2.8 L (3.9-5) g/dL Calcium panel 02/19/18 Range/Units 03:50 Calcium 8.9 (8.4-10.2) mg/dL Albumin 2.8 L (3.9-5) g/dL Pituitary panel 02/19/18 Range/Units 03:50 Sodium 141 (137-145) mmol/L Potassium 3.4 L (3.6-5.0) mmol/L Chloride 107.2 H (98-107) mmol/L Carbon Dioxide 17 L (22-30) mmol/L BUN 7 (7-17) mg/dL Creatinine 1.2 (0.7-1.2) mg/dL Glucose 84 (65-100) mg/dL Calcium 8.9 (8.4-10.2) mg/dL Adrenal panel 02/19/18 Range/Units 03:50 Sodium 141 (137-145) mmol/L Potassium 3.4 L (3.6-5.0) mmol/L Chloride 107.2 H (98-107) mmol/L Carbon Dioxide 17 L (22-30) mmol/L BUN 7 (7-17) mg/dL Creatinine 1.2 (0.7-1.2) mg/dL Glucose 84 (65-100) mg/dL Calcium 8.9 (8.4-10.2) mg/dL Total Bilirubin 0.30 (0.1-1.2) mg/dL AST 23 (5-40) units/L ALT 23 (7-56) units/L Alkaline Phosphatase 185 H (35-129) units/L Total Protein 6.3 (6.3-8.2) g/dL Albumin 2.8 L (3.9-5) g/dL
[2018-02-19] MEDS ORDERED: NACL 0.9% 500 ML 500 ML IV NR (15:37)
--- NOTE | 2018-02-19 15:37 | Hem/Onc Progress Note ---
Assessment and Plan 1. metastatic breast cancer - Neupogen d/c'd yesterday for leukocytosis - transition to oral antibiotics for Staph aureus (sensitive to clindamycin, Bactrim) - transfuse 1 unit PRBC - OK to d/c from heme standpoint after transfusion Subjective Date of service: 02/19/18 Interval history: feeling much better Objective - Constitutional Vitals: Last Vital Signs Temp 98.4 F 02/19/18 08:00 Pulse 110 H 02/19/18 07:39 Resp 18 02/19/18 07:39 BP 117/74 02/19/18 07:39 Pulse Ox 99 02/19/18 07:39 General appearance: no acute distress - EENT Eyes: PERRL - Neck Neck: supple - Respiratory Respiratory effort: Positive: normal Respiratory: bilateral: CTA - Cardiovascular Rhythm: regular - Gastrointestinal General gastrointestinal: Present: soft - Integumentary Integumentary: warm, dry - Neurologic Neurologic: CNII-XII intact - Labs Lab Results: Laboratory Results - last 24 hr 02/19/18 02/19/18 03:50 03:50 WBC 44.7 H* RBC 2.48 L Hgb 7.2 L Hct 21.8 L MCV 88 MCH 29 MCHC 33 RDW 15.3 H Plt Count 370 Add Manual Diff Complete Total Counted 100 Seg Neuts % (Manual) 53.0 Band Neutrophils % 29.0 Lymphocytes % (Manual) 5.0 L Reactive Lymphs % (Man) 0 Monocytes % (Manual) 7.0 Eosinophils % (Manual) 0 Basophils % (Manual) 0 Metamyelocytes % 3.0 Myelocytes % 3.0 Promyelocytes % 0 Blast Cells % 0 Nucleated RBC % Not Reportable Seg Neutrophils # Man 23.7 H Band Neutrophils # 13.0 Lymphocytes # (Manual) 2.2 Abs React Lymphs (Man) 0.0 Monocytes # (Manual) 3.1 H Eosinophils # (Manual) 0.0 Basophils # (Manual) 0.0 Metamyelocytes # 1.3 Myelocytes # 1.3 Promyelocytes # 0.0 Blast Cells # 0.0 WBC Morphology Not Reportable Hypersegmented Neuts Not Reportable Hyposegmented Neuts Not Reportable Hypogranular Neuts Not Reportable Smudge Cells Not Reportable Toxic Granulation Not Reportable Toxic Vacuolation Not Reportable Dohle Bodies Not Reportable Pelger-Huet Anomaly Not Reportable Lucio Rods Not Reportable Platelet Estimate Consistent w auto Clumped Platelets Not Reportable Plt Clumps, EDTA Not Reportable Large Platelets Not Reportable Giant Platelets Not Reportable Platelet Satelliting Not Reportable Plt Morphology Comment Not Reportable RBC Morphology Not Reportable Dimorphic RBCs Not Reportable Polychromasia Not Reportable Hypochromasia Not Reportable Poikilocytosis Not Reportable Anisocytosis 1+ Microcytosis Not Reportable Macrocytosis Not Reportable Spherocytes Not Reportable Pappenheimer Bodies Not Reportable Sickle Cells Not Reportable Target Cells Not Reportable Tear Drop Cells Not Reportable Ovalocytes Not Reportable Helmet Cells Not Reportable [place] Bodies Not Reportable [place] Rings Not Reportable [place] Cells Not Reportable Bite Cells Not Reportable Crenated Cell Not Reportable Elliptocytes Not Reportable Acanthocytes (Spur) Not Reportable Rouleaux Not Reportable Hemoglobin C Crystals Not Reportable Schistocytes Not Reportable Malaria parasites Not Reportable Roger Bodies Not Reportable Hem Pathologist Commnt Sent to pathology Sodium 141 Potassium 3.4 L Chloride 107.2 H Carbon Dioxide 17 L Anion Gap 20 BUN 7 Creatinine 1.2 Estimated GFR > 60 BUN/Creatinine Ratio 6 Glucose 84 Calcium 8.9 Total Bilirubin 0.30 AST 23 ALT 23 Alkaline Phosphatase 185 H Total Protein 6.3 Albumin 2.8 L Albumin/Globulin Ratio 0.8
--- NOTE | 2018-02-19 18:15 | Operative Report ---
Operative Report Operative Report: Date of procedure: 02/17/18 Pre-op diagnosis: bacteremia, suspected port infection Post-op diagnosis: same Findings: Intact removal of port without evidence of gross infection Procedure: Removal of right chest wall port a cath Anesthesia: local Surgeon: NEIL KRAMER Estimated blood loss: minimal Pathology: list (port and catheter) Specimen disposition: to lab Condition: stable Disposition: floor HPI and indication: 37 yo F with breast cancer, currently undergoing chemotherapy via a port placed in November 2017. The patient was sent to the ER because of fevers, neutropenia. Her blood cultures grew staph and it was felt by oncology and ID that the port was likely infected and needed to be removed. All risks, benefits, and alternatives to the procedure were discussed with the patient and consent obtained. Procedure in detail: The patient was identified and brought to the OR procedure room. The right chest was prepped and draped in the usual sterile fashion and a time out performed. Local anesthetic was infiltrated into the skin and subcutaneous tissue at the intended incision site. A 3 cm horizontal incision was made at the prior scar using a 15 blade and dissection was carried down through the subcutaneous tissue until the port was encountered. The catheter was grasped by two hemostats and cut in between using scissors. The subcutaneous port was grasped and dissected from surrounding tissue using hemostat until it was removed. The catheter was then removed and pressure held for 10 minutes. The entire port/catheter was passed off the table as a specimen. The cavity was irrigated and checked for hemostasis. This was achieved with pressure. No bleeding was seen. The wound was packed with 1 inch iodoform packing, covered with 4x4 gauze and tegaderm. The patient tolerated the procedure well. All sharp, instrument, sponge counts were correct at the end of the case.
[2018-02-20] MEDS: ANCEF/STERILE WATER 2 GM/20 ML 2 GM/20 ML SYRINGE IV SCH ×2 (06:27→17:49)
--- NOTE | 2018-02-20 09:48 | Hem/Onc Progress Note ---
Assessment and Plan At this time, would need outpatient antibiotics. We will arrange for PICC line. If discharged, I will follow-up in my office. Subjective Date of service: 02/20/18 Interval history: Patient feels better. Appreciate Dr. Rojas and Dr. hanna's help. Status post port removal. Cultures positive. Objective - Constitutional Vitals: Last Vital Signs Temp 98.8 F 02/20/18 08:57 Pulse 106 H 02/20/18 08:57 Resp 20 02/20/18 08:57 BP 119/75 02/20/18 08:57 Pulse Ox 98 02/20/18 08:57 General appearance: no acute distress - Neck Neck: supple - Respiratory Respiratory effort: Positive: normal - Cardiovascular Rhythm: regular Extremities: No edema - Gastrointestinal General gastrointestinal: Present: soft - Labs Lab Results: Laboratory Results - last 24 hr 02/19/18 16:06 Blood Type O POSITIVE Antibody Screen Negative Crossmatch See Detail
[2018-02-20] MEDS: SODIUM CHLORIDE FLUSH SYRINGE 10 ML IV SCH ×2 (10:01→22:32)
[2018-02-20 10:11] LABS: Hematocrit 23.5 % (30.3-42.9); Hemoglobin 7.9 gm/dl (10.1-14.3); Mean Corpuscular HGB Conc 34 % (30-34); Mean Corpuscular Hemoglobin 28 pg (28-32); Mean Corpuscular Volume 85 fl (79-97); Platelet Count 366 K/mm3 (140-440); Red Blood Count 2.78 M/mm3 (3.65-5.03); Red Cell Distribution Width 16.6 % (13.2-15.2)
[2018-02-20 10:27] LABS: Alanine Aminotransferase 16 units/L (7-56); Albumin 2.7 g/dL (3.9-5); BUN/Creatinine Ratio 5; Blood Urea Nitrogen 5 mg/dL (7-17); Calcium 8.6 mg/dL (8.4-10.2); Hemolysis Index 48
[2018-02-20] MEDS: LOVENOX SUB-Q SCH (10:41)
[2018-02-20 11:21] LABS: Total Cells Counted 100
[2018-02-20 11:22] LABS: Anisocytosis 1+; Band Neutrophils # (Manual) 2.3 K/mm3; Basophils % (Manual) 0 % (0.0-1.8); Eosinophils % (Manual) 0 % (0.0-4.3); Platelet Estimate Consistent w Auto
--- NOTE | 2018-02-20 12:24 | Progress Note ---
Assessment and Plan Assessment: 1) Sepsis: resolved. Now leukocytosis ? from neupogen. Etiology MSSA bacteremia +/- UTI. 2) MSSA bacteremia: source ? port -Blood cx 02/15MSSA 4 of 4 bottles -Blood cx 02/17 no growth -S/P port removal tip + Staph -TTE no vegetations 3) Metastatic breast cancer - started on chemo a week ago 4) Port-A-cath placed in October 2017 for chemotherapy 5) UTI - Urinalysis showed large leukocyte esterase and white blood cells 76. Urine cx 10-100K mixed. Plan: -continue cefazolin 2 g IV q8 hour total 4 weeks until 03/16/18. Sent to director of casework. -PICC I am signing off ID clinic on 03/16 Thank you for your consultation, will follow up with you. Kaye Sher MD Infectious Diseases Specialist [facility] ([facility]) M [phone] O [phone] Subjective Date of service: 02/20/18 Principal diagnosis: Sepsis, Left breast cancer, UTI Interval history: Feels better no fever Microbiology: Blood cultures: 02/15 MSSA 4 of 4 bottles 02/17 ngtd Port tip 02/17 +Staph Current Antimicrobials: cefazolin 02/18 Previous Antimicrobials: Vancomycin Cefepime Fluconazole Objective - Exam Narrative Exam: General appearance: Alert in NAD, conversant Eyes: anicteric sclerae, moist conjunctivae; no lid-lag; PERRLA, alopecia HENT: Atraumatic; oropharynx clear with moist mucous membranes and no mucosal ulcerations/no oral thrush; normal hard and soft palate. Normal external ears. Neck: Trachea midline; supple, no thyromegaly or lymphadenopathy Lungs: CTA, with normal respiratory effort and no intercostal retractions CV: tachy Abdomen: Soft, non-tender; no masses or hepatosplenomegaly Extremities: No peripheral edema or extremity lymphadenopathy Skin: No rash. +right sided port w/o erythema, edema Psych: Appropriate affect, alert and oriented to person, place and time. Neuro: alert and oriented x 3. Moving all extermities Lines: No CVL / PICC - Constitutional Vitals: Vital Signs Temp Pulse Resp BP Pulse Ox 98.8 F 106 H 20 119/75 98 02/20/18 08:57 02/20/18 08:57 02/20/18 08:57 02/20/18 08:57 02/20/18 08:57 Temperature -Last 24 Hours Temperature 98.8 F Temperature 98.7 F Temperature 98.7 F Temperature 98 F Temperature 98.2 F Temperature 98 F Temperature 98.7 F Temperature 98.5 F Temperature 99.0 F Temperature 98.4 F Temperature 98.1 F - Labs CBC & Chem 7: 02/20/18 09:16 02/20/18 09:16 Labs: Abnormal lab results 02/19/18 02/20/18 02/20/18 Range/Units 16:06 09:16 09:16 WBC 25.9 H (4.5-11.0) K/mm3 RBC 2.78 L (3.65-5.03) M/mm3 Hgb 7.9 L (10.1-14.3) gm/dl Hct 23.5 L (30.3-42.9) % RDW 16.6 H (13.2-15.2) % Lymphocytes % (Manual) 10.0 L (13.4-35.0) % Monocytes % (Manual) 8.0 H (0.0-7.3) % Seg Neutrophils # Man 17.6 H (1.8-7.7) K/mm3 Monocytes # (Manual) 2.1 H (0.0-0.8) K/mm3 Potassium 3.2 L (3.6-5.0) mmol/L Carbon Dioxide 19 L (22-30) mmol/L BUN 5 L (7-17) mg/dL Alkaline Phosphatase 130 H (35-129) units/L Total Protein 6.2 L (6.3-8.2) g/dL Albumin 2.7 L (3.9-5) g/dL Crossmatch See Detail
--- NOTE | 2018-02-20 12:44 | Discharge Summary ---
<MONICA MCCAULEY - Last Filed: 02/21/18 09:40> Providers - Providers Date of Admission: 02/15/18 22:16 Attending physician: MONICA MCCAULEY MD 02/15/18 21:24 Consult to Physician [CONS] Routine Comment: Consulting Provider: WILFERDO ZHOU Physician Instructions: Reason For Exam: breast ca, neutropenic fever after chemo 02/17/18 09:37 Consult to Physician [CONS] Routine Comment: Consulting Provider: CHAIM GONZALEZ Physician Instructions: Reason For Exam: sepsis, s/p port 02/20/18 09:49 PICC Line Insertion [Consult to PICC Line RN] [CONS] Urgent Reason For Exam: home a/b Type Line:: PICC Primary care physician: SHABNAM MARTINEZ Hospitalization Condition: Stable Hospital course: Sepsis with Septic Shock likely from infected Port * S/P removal of port * MRSA per culture from the oncologist office. 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 Now has Leukocytsis Plan Blood culture yielded gram-positive cocci in 4 bottles Continue with maintenance IV fluid Continue with IV vancomycin and fluconazole Blood transfusion Consulted and discussed with ID who is still following pt awaiting case management setting up home meds. Consulted oncology Neutropenic precautions DVT prophalaxis Disposition: DC/TX-06 HOME UNDER HOME HLTH Exam - Constitutional Vitals: Temp Pulse Resp BP Pulse Ox 98.8 F 106 H 20 119/75 98 02/20/18 08:57 02/20/18 08:57 02/20/18 08:57 02/20/18 08:57 02/20/18 08:57 Plan Activity: advance as tolerated, fall precautions Diet: advance as tolerated Special Instructions: record daily BP diary Additional Instructions: ANTIBIOTICS ORDERED BY ID. DISCONTINUE PICC LINE ONCE ABX COMPLETED Follow up with: SHABNAM MARTINEZ MD [Primary Care Provider] - 7 Days CHAIM GONZALEZ MD [Staff Physician] - 7 Days NEIL KRAMER DO [Staff Physician] - 7 Days <NEIL KRAMER - Last Filed: 02/22/18 17:51> Providers - Providers Date of Admission: 02/15/18 22:16 Attending physician: MONICA MCCAULEY MD 02/15/18 21:24 Consult to Physician [CONS] Routine Comment: Consulting Provider: WILFREDO ZHOU Physician Instructions: Reason For Exam: breast ca, neutropenic fever after chemo 02/17/18 09:37 Consult to Physician [CONS] Routine Comment: Consulting Provider: CHAIM GONZALEZ Physician Instructions: Reason For Exam: sepsis, s/p port 02/20/18 09:49 PICC Line Insertion [Consult to PICC Line RN] [CONS] Urgent Reason For Exam: home a/b Type Line:: PICC Primary care physician: SHABNAM MARTINEZ Core Measure Documentation - Palliative Care Palliative Care/ Comfort Measures: Not Applicable - Core Measures Any of the following diagnoses?: none Exam - Constitutional Vitals: Temp Pulse Resp BP Pulse Ox 98.8 F 106 H 20 119/75 98 02/20/18 08:57 02/20/18 08:57 02/20/18 08:57 02/20/18 08:57 02/20/18 08:57 Plan Wound: other (May shower with wound exposed to air. Gently pat dry. Cover with gauze dressing. Perform wound care daily)
--- NOTE | 2018-02-20 15:08 | XRay Report ---
AP CHEST: HISTORY: Left arm PICC placement The right [id number]-[id number] has been removed since 02/15/18. A left arm PICC has been inserted which is coiled upon itself in the left brachiocephalic vein. The overall length of the catheter appears adequate. Consider retraction by 5 CM and readvancement by 5 CM. AP view of the chest demonstrates a normal mediastinal and cardiac contour with clear lungs and normal bony and soft tissue structures. IMPRESSION: Unremarkable AP chest. Left PICC as described.
[2018-02-20] MEDS ORDERED: VANCOMYCIN PHARMACY TO DOSE IV SCH (16:00)
[2018-02-20] MEDS ORDERED: VANCOMYCIN VIAL 1,000 MG in NACL 0.9% 100 ML IV SCH (16:00)
--- NOTE | 2018-02-20 16:21 | XRay Report ---
FINAL REPORT EXAM: XR CHEST 1V AP HISTORY: Repeat x-ray for left arm PICC placement TECHNIQUE: upright single view chest PRIORS: None. FINDINGS: Cardiac and mediastinal contours are unremarkable. No focal pulmonary infiltrate is identified. No pleural fluid collection seen. Pulmonary vasculature is unremarkable. There is a left PICC line catheter tip at the SVC. There is no evidence for pneumothorax post PICC line placement. IMPRESSION: PICC line in satisfactory position No evidence for pneumothorax post PICC line placement
--- NOTE | 2018-02-20 16:25 | Progress Note ---
Assessment and Plan Assessment and plan: Sepsis with Septic Shock likely from infected Port * S/P removal of port * MRSA per culture from the oncologist office. 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 Now has Leukocytsis Plan Blood culture yielded gram-positive cocci in 4 bottles Continue with maintenance IV fluid Continue with IV vancomycin and fluconazole Blood transfusion Consulted and discussed with ID who is still following pt awaiting case management setting up home meds. Consulted oncology Neutropenic precautions DVT prophalaxis History Interval history: Patient seen and examined, anxious for discharged, reports improvement in symptoms. Denies any chest pain, shortness of breath, nausea or vomiting. Hospitalist Physical - Physical exam Narrative exam: Constitutional: Reports on the right chest wall. Well-nourished well- developed. In no distress Head: Normocephalic atraumatic Eyes: Pupils are equal round and reactive to light Nose: No enlarged turbinates, no septal deviation. Mouth: Moist mucous membranes. Neck: Supple no thyromegaly. No bruit. No JVD Heart: Regular rate and rhythm, S1-S2 abnormal. No rubs murmurs or gallop Lungs: Clear to auscultation bilaterally no rales or rhonchi Abdomen: Soft, nontender. Bowel sound are present. Extremities: No edema no cyanosis and no clubbing. Neuro: Alert oriented Oriented x3. No focal sensory or motor deficit. Skin: No rashes no hyperemic spots. Psychiatry: Euthymic. Calm. - Constitutional Vitals: Temp Pulse Resp BP Pulse Ox 98.8 F 106 H 20 119/75 98 02/20/18 08:57 02/20/18 08:57 02/20/18 08:57 02/20/18 08:57 02/20/18 08:57 General appearance: Present: no acute distress, well-nourished Results - Labs CBC & Chem 7: 02/20/18 09:16 02/20/18 09:16 Labs: Laboratory Last Values WBC 25.9 K/mm3 (4.5-11.0) H 02/20/18 09:16 RBC 2.78 M/mm3 (3.65-5.03) L 02/20/18 09:16 Hgb 7.9 gm/dl (10.1-14.3) L 02/20/18 09:16 Hct 23.5 % (30.3-42.9) L 02/20/18 09:16 MCV 85 fl (79-97) 02/20/18 09:16 MCH 28 pg (28-32) 02/20/18 09:16 MCHC 34 % (30-34) 02/20/18 09:16 RDW 16.6 % (13.2-15.2) H 02/20/18 09:16 Plt Count 366 K/mm3 (140-440) 02/20/18 09:16 Lymph % (Auto) Regulatory Affairs Associate 02/15/18 18:26 [place] % (Auto) Regulatory Affairs Associate 02/17/18 07:22 Add Manual Diff Complete 02/20/18 09:16 Total Counted 100 02/20/18 09:16 Seg Neutrophils % Regulatory Affairs Associate 02/16/18 05:13 Seg Neuts % (Manual) 68.0 % (40.0-70.0) 02/20/18 09:16 Band Neutrophils % 9.0 % 02/20/18 09:16 Lymphocytes % (Manual) 10.0 % (13.4-35.0) L 02/20/18 09:16 Reactive Lymphs % (Man) 0 % 02/20/18 09:16 Monocytes % (Manual) 8.0 % (0.0-7.3) H 02/20/18 09:16 Eosinophils % (Manual) 0 % (0.0-4.3) 02/20/18 09:16 Basophils % (Manual) 0 % (0.0-1.8) 02/20/18 09:16 Metamyelocytes % 5.0 % 02/20/18 09:16 Myelocytes % 0 % 02/20/18 09:16 Promyelocytes % 0 % 02/20/18 09:16 Blast Cells % 0 % 02/20/18 09:16 Nucleated RBC % Not Reportable 02/20/18 09:16 Seg Neutrophils # Man 17.6 K/mm3 (1.8-7.7) H 02/20/18 09:16 Band Neutrophils # 2.3 K/mm3 02/20/18 09:16 Lymphocytes # (Manual) 2.6 K/mm3 (1.2-5.4) 02/20/18 09:16 Abs React Lymphs (Man) 0.0 K/mm3 02/20/18 09:16 Monocytes # (Manual) 2.1 K/mm3 (0.0-0.8) H 02/20/18 09:16 Eosinophils # (Manual) 0.0 K/mm3 (0.0-0.4) 02/20/18 09:16 Basophils # (Manual) 0.0 K/mm3 (0.0-0.1) 02/20/18 09:16 Metamyelocytes # 1.3 K/mm3 02/20/18 09:16 Myelocytes # 0.0 K/mm3 02/20/18 09:16 Promyelocytes # 0.0 K/mm3 02/20/18 09:16 Blast Cells # 0.0 K/mm3 02/20/18 09:16 Pathologist Review Not Reportable 02/19/18 03:50 WBC Morphology Not Reportable 02/20/18 09:16 Hypersegmented Neuts Not Reportable 02/20/18 09:16 Hyposegmented Neuts Not Reportable 02/20/18 09:16 Hypogranular Neuts Not Reportable 02/20/18 09:16 Smudge Cells Not Reportable 02/20/18 09:16 Toxic Granulation Not Reportable 02/20/18 09:16 Toxic Vacuolation Not Reportable 02/20/18 09:16 Dohle Bodies Not Reportable 02/20/18 09:16 Pelger-Huet Anomaly Not Reportable 02/20/18 09:16 Lucio Rods Not Reportable 02/20/18 09:16 Platelet Estimate Consistent w auto 02/20/18 09:16 Clumped Platelets Not Reportable 02/20/18 09:16 Plt Clumps, EDTA Not Reportable 02/20/18 09:16 Large Platelets Not Reportable 02/20/18 09:16 Giant Platelets Not Reportable 02/20/18 09:16 Platelet Satelliting Not Reportable 02/20/18 09:16 Plt Morphology Comment Not Reportable 02/20/18 09:16 RBC Morphology Not Reportable 02/20/18 09:16 Dimorphic RBCs Not Reportable 02/20/18 09:16 Polychromasia Not Reportable 02/20/18 09:16 Hypochromasia Not Reportable 02/20/18 09:16 Poikilocytosis Not Reportable 02/20/18 09:16 Anisocytosis 1+ 02/20/18 09:16 Microcytosis Not Reportable 02/20/18 09:16 Macrocytosis Not Reportable 02/20/18 09:16 Spherocytes Not Reportable 02/20/18 09:16 Pappenheimer Bodies Not Reportable 02/20/18 09:16 Sickle Cells Not Reportable 02/20/18 09:16 Target Cells Not Reportable 02/20/18 09:16 Tear Drop Cells Not Reportable 02/20/18 09:16 Ovalocytes Not Reportable 02/20/18 09:16 Helmet Cells Not Reportable 02/20/18 09:16 Patel-Abbott Bodies Not Reportable 02/20/18 09:16 [place] Rings Not Reportable 02/20/18 09:16 [place] Cells Not Reportable 02/20/18 09:16 Bite Cells Not Reportable 02/20/18 09:16 Crenated Cell Not Reportable 02/20/18 09:16 Elliptocytes Not Reportable 02/20/18 09:16 Acanthocytes (Spur) Not Reportable 02/20/18 09:16 Rouleaux Not Reportable 02/20/18 09:16 Hemoglobin C Crystals Not Reportable 02/20/18 09:16 Schistocytes Not Reportable 02/20/18 09:16 Malaria parasites Not Reportable 02/20/18 09:16 Roger Bodies Not Reportable 02/20/18 09:16 Hem Pathologist Commnt No 02/20/18 09:16 PT 13.8 Sec. (12.2-14.9) 02/15/18 18:26 INR 1.01 (0.87-1.13) 02/15/18 18:26 VBG pH 7.400 (7.320-7.420) 02/15/18 18:26 Sodium 139 mmol/L (137-145) 02/20/18 09:16 Potassium 3.2 mmol/L (3.6-5.0) L 02/20/18 09:16 Chloride 103.9 mmol/L (98-107) 02/20/18 09:16 Carbon Dioxide 19 mmol/L (22-30) L 02/20/18 09:16 Anion Gap 19 mmol/L 02/20/18 09:16 BUN 5 mg/dL (7-17) L 02/20/18 09:16 Creatinine 1.1 mg/dL (0.7-1.2) 02/20/18 09:16 Estimated GFR > 60 ml/min 02/20/18 09:16 BUN/Creatinine Ratio 5 % 02/20/18 09:16 Glucose 95 mg/dL (65-100) 02/20/18 09:16 POC Glucose 109 (70-105) H 02/17/18 13:01 Lactic Acid 1.50 mmol/L (0.7-2.0) 02/16/18 05:13 Calcium 8.6 mg/dL (8.4-10.2) 02/20/18 09:16 Phosphorus 1.80 mg/dL (2.5-4.5) L 02/18/18 05:18 Magnesium 1.20 mg/dL (1.7-2.3) L 02/18/18 05:18 Total Bilirubin 0.30 mg/dL (0.1-1.2) 02/20/18 09:16 AST 23 units/L (5-40) 02/20/18 09:16 ALT 16 units/L (7-56) 02/20/18 09:16 Alkaline Phosphatase 130 units/L (35-129) H 02/20/18 09:16 Total Protein 6.2 g/dL (6.3-8.2) L 02/20/18 09:16 Albumin 2.7 g/dL (3.9-5) L 02/20/18 09:16 Albumin/Globulin Ratio 0.8 % 02/20/18 09:16 HCG, Qual Negative (Negative) 02/15/18 18:26 Urine Color Yellow (Yellow) 02/15/18 20:54 Urine Turbidity Clear (Clear) 02/15/18 20:54 Urine pH 6.0 (5.0-7.0) 02/15/18 20:54 Ur Specific [place] 1.013 (1.003-1.030) 02/15/18 20:54 Urine Protein <15 mg/dl mg/dL (Negative) 02/15/18 20:54 Urine Glucose (UA) Neg mg/dL (Negative) 02/15/18 20:54 Urine Ketones Neg mg/dL (Negative) 02/15/18 20:54 Urine Blood Sm (Negative) 02/15/18 20:54 Urine Nitrite Neg (Negative) 02/15/18 20:54 Urine Bilirubin Neg (Negative) 02/15/18 20:54 Urine Urobilinogen < 2.0 mg/dL (<2.0) 02/15/18 20:54 Ur Leukocyte Esterase Lg (Negative) 02/15/18 20:54 Urine WBC (Auto) 76.0 /HPF (0.0-6.0) H 02/15/18 20:54 Urine RBC (Auto) 5.0 /HPF (0.0-6.0) 02/15/18 20:54 U Epithel Cells (Auto) 3.0 /HPF (0-13.0) 02/15/18 20:54 Urine Bacteria (Auto) 1+ /HPF (Negative) 02/15/18 20:54 Ur Transition Epith Cell 20 /HPF 02/15/18 20:54 Urine Mucus Few /HPF 02/15/18 20:54 Blood Type O POSITIVE 02/19/18 16:06 Antibody Screen Negative 02/19/18 16:06 Crossmatch See Detail 02/19/18 16:06
[2018-02-20] MEDS ORDERED: VANCOMYCIN 1,750 MG in NACL 0.9% 500 ML 500 ML IV SCH (18:00)
[2018-02-20] MEDS ORDERED: VANCOMYCIN 1,500 MG in NACL 0.9% 500 ML 500 ML IV SCH (20:00)
[2018-02-21 07:53] LABS: Hematocrit 22.7 % (30.3-42.9); Hemoglobin 7.6 gm/dl (10.1-14.3); Mean Corpuscular HGB Conc 34 % (30-34); Mean Corpuscular Hemoglobin 29 pg (28-32); Mean Corpuscular Volume 85 fl (79-97); Platelet Count 339 K/mm3 (140-440); Red Blood Count 2.66 M/mm3 (3.65-5.03); Red Cell Distribution Width 16.5 % (13.2-15.2)
[2018-02-21 08:13] LABS: Alanine Aminotransferase 14 units/L (7-56); Albumin 2.7 g/dL (3.9-5); BUN/Creatinine Ratio 6; Blood Urea Nitrogen 6 mg/dL (7-17); Calcium 8.7 mg/dL (8.4-10.2); Hemolysis Index 1
--- NOTE | 2018-02-21 09:57 | Hem/Onc Progress Note ---
Assessment and Plan Possible discharge today. Port site looks clean. Patient is anemic and will follow her in our office closely. IV antibiotics for 4 weeks. Would like to see her in our office in 1 week to check labs and discuss resuming chemotherapy. Subjective Date of service: 02/21/18 Interval history: Patient feels better. Appreciate Dr. Rojas and Dr. hanna's help. Status post port removal. Cultures positive. One culture from the office positive for MRSA and thus she is being discharged on IV vancomycin Objective - Constitutional Vitals: Last Vital Signs Temp 99.5 F 02/21/18 07:32 Pulse 111 H 02/21/18 07:32 Resp 20 02/21/18 07:32 BP 115/66 02/21/18 07:32 Pulse Ox 99 02/21/18 07:32 General appearance: no acute distress Performance status: 2- selfcare, ambulatory - Respiratory Respiratory effort: Positive: normal - Cardiovascular Rhythm: regular - Gastrointestinal General gastrointestinal: Present: soft - Labs Lab Results: Laboratory Results - last 24 hr 02/19/18 02/20/18 02/20/18 03:50 09:16 09:16 WBC 25.9 H RBC 2.78 L Hgb 7.9 L Hct 23.5 L MCV 85 MCH 28 MCHC 34 RDW 16.6 H Plt Count 366 Add Manual Diff Complete Total Counted 100 Seg Neuts % (Manual) 68.0 Band Neutrophils % 9.0 Lymphocytes % (Manual) 10.0 L Reactive Lymphs % (Man) 0 Monocytes % (Manual) 8.0 H Eosinophils % (Manual) 0 Basophils % (Manual) 0 Metamyelocytes % 5.0 Myelocytes % 0 Promyelocytes % 0 Blast Cells % 0 Nucleated RBC % Not Reportable Seg Neutrophils # Man 17.6 H Band Neutrophils # 2.3 Lymphocytes # (Manual) 2.6 Abs React Lymphs (Man) 0.0 Monocytes # (Manual) 2.1 H Eosinophils # (Manual) 0.0 Basophils # (Manual) 0.0 Metamyelocytes # 1.3 Myelocytes # 0.0 Promyelocytes # 0.0 Blast Cells # 0.0 Pathologist Review Not Reportable WBC Morphology Not Reportable Hypersegmented Neuts Not Reportable Hyposegmented Neuts Not Reportable Hypogranular Neuts Not Reportable Smudge Cells Not Reportable Toxic Granulation Not Reportable Toxic Vacuolation Not Reportable Dohle Bodies Not Reportable Pelger-Huet Anomaly Not Reportable Lucio Rods Not Reportable Platelet Estimate Consistent w auto Clumped Platelets Not Reportable Plt Clumps, EDTA Not Reportable Large Platelets Not Reportable Giant Platelets Not Reportable Platelet Satelliting Not Reportable Plt Morphology Comment Not Reportable RBC Morphology Not Reportable Dimorphic RBCs Not Reportable Polychromasia Not Reportable Hypochromasia Not Reportable Poikilocytosis Not Reportable Anisocytosis 1+ Microcytosis Not Reportable Macrocytosis Not Reportable Spherocytes Not Reportable Pappenheimer Bodies Not Reportable Sickle Cells Not Reportable Target Cells Not Reportable Tear Drop Cells Not Reportable Ovalocytes Not Reportable Helmet Cells Not Reportable Patel-Raymer Bodies Not Reportable [place] Rings Not Reportable [place] Cells Not Reportable Bite Cells Not Reportable Crenated Cell Not Reportable Elliptocytes Not Reportable Acanthocytes (Spur) Not Reportable Rouleaux Not Reportable Hemoglobin C Crystals Not Reportable Schistocytes Not Reportable Malaria parasites Not Reportable Roger Bodies Not Reportable Hem Pathologist Commnt No No Sodium 139 Potassium 3.2 L Chloride 103.9 Carbon Dioxide 19 L Anion Gap 19 BUN 5 L Creatinine 1.1 Estimated GFR > 60 BUN/Creatinine Ratio 5 Glucose 95 Calcium 8.6 Total Bilirubin 0.30 AST 23 ALT 16 Alkaline Phosphatase 130 H Total Protein 6.2 L Albumin 2.7 L Albumin/Globulin Ratio 0.8 02/21/18 02/21/18 07:10 07:10 WBC 17.6 H RBC 2.66 L Hgb 7.6 L Hct 22.7 L MCV 85 MCH 29 MCHC 34 RDW 16.5 H Plt Count 339 Add Manual Diff Total Counted Seg Neuts % (Manual) Band Neutrophils % Lymphocytes % (Manual) Reactive Lymphs % (Man) Monocytes % (Manual) Eosinophils % (Manual) Basophils % (Manual) Metamyelocytes % Myelocytes % Promyelocytes % Blast Cells % Nucleated RBC % Seg Neutrophils # Man Band Neutrophils # Lymphocytes # (Manual) Abs React Lymphs (Man) Monocytes # (Manual) Eosinophils # (Manual) Basophils # (Manual) Metamyelocytes # Myelocytes # Promyelocytes # Blast Cells # Pathologist Review WBC Morphology Hypersegmented Neuts Hyposegmented Neuts Hypogranular Neuts Smudge Cells Toxic Granulation Toxic Vacuolation Dohle Bodies Pelger-Huet Anomaly Lucio Rods Platelet Estimate Clumped Platelets Plt Clumps, EDTA Large Platelets Giant Platelets Platelet Satelliting Plt Morphology Comment RBC Morphology Dimorphic RBCs Polychromasia Hypochromasia Poikilocytosis Anisocytosis Microcytosis Macrocytosis Spherocytes Pappenheimer Bodies Sickle Cells Target Cells Tear Drop Cells Ovalocytes Helmet Cells Patel-Raymer Bodies [place] Rings Sheila Cells Bite Cells Crenated Cell Elliptocytes Acanthocytes (Spur) Rouleaux Hemoglobin C Crystals Schistocytes Malaria parasites Roger Bodies Hem Pathologist Commnt Sodium 140 Potassium 3.0 L Chloride 104.3 Carbon Dioxide 22 Anion Gap 17 BUN 6 L Creatinine 1.0 Estimated GFR > 60 BUN/Creatinine Ratio 6 Glucose 105 H Calcium 8.7 Total Bilirubin 0.40 AST 15 ALT 14 Alkaline Phosphatase 94 Total Protein 6.2 L Albumin 2.7 L Albumin/Globulin Ratio 0.8
[2018-02-21 10:36] LABS: Band Neutrophils # (Manual) 0.7 K/mm3; Basophils % (Manual) 0 % (0.0-1.8); Eosinophils % (Manual) 0 % (0.0-4.3); Myelocytes # (Manual) 0.2 K/mm3; Total Cells Counted 100
[2018-02-21 10:37] LABS: Anisocytosis 1+; Platelet Estimate Cons
[2018-02-21] MEDS: LOVENOX SUB-Q SCH (10:54)
[2018-02-21] MEDS: SODIUM CHLORIDE FLUSH SYRINGE 10 ML IV SCH (11:03)
[2018-02-21] MEDS ORDERED: VANCOMYCIN/NS 1 GM/250 ML 1 GM/250 ML BAG IV SCH (12:00)
[2018-02-21] MEDS ORDERED: K-DUR PO ONE (15:00)
[2018-02-21 15:59] VITALS: BP 133/83
[2018-02-21] MEDS ORDERED: KCL 10MEQ/100ML 10 MEQ/100 ML BAG IV ONE (16:00)
--- NOTE | 2018-02-21 17:52 | Progress Note ---
Assessment and Plan 37 yo F s/p removal of infected port a cath POD 4 1. Patient to keep wound covered, will change dressing daily. 2. May shower with wound open to air 3. will follow up with me in surgery office in 1 week to assess wound Verbal and written instructions given to patient. OK to dc from surgery standpoint. Thank you. Please call with questions or concerns. Subjective Date of service: 02/21/18 Narrative: Pt seen and examined. No complaints. Feels well. Objective Vital Signs - 12hr 02/21/18 02/21/18 07:32 15:43 Temperature 99.5 F 99.8 F H Pulse Rate 111 H 100 H Respiratory 20 20 Rate Blood Pressure 115/66 133/83 O2 Sat by Pulse 99 98 Oximetry - General physical appearance Narrative Exam: Gen: AAOx3. NAD Chest wounds: Steristrips peeling off and so they were removed. The wound is healing well and cavity has filled in by 75%. No drainage or surrounding induration, fluctuance, or erythema. Wound packed with mesalt strip and covered with dry dressing. - Labs 02/21/18 07:10 02/21/18 07:10 Diabetes panel 02/21/18 Range/Units 07:10 Sodium 140 (137-145) mmol/L Potassium 3.0 L (3.6-5.0) mmol/L Chloride 104.3 (98-107) mmol/L Carbon Dioxide 22 (22-30) mmol/L BUN 6 L (7-17) mg/dL Creatinine 1.0 (0.7-1.2) mg/dL Glucose 105 H (65-100) mg/dL Calcium 8.7 (8.4-10.2) mg/dL AST 15 (5-40) units/L ALT 14 (7-56) units/L Alkaline Phosphatase 94 (35-129) units/L Total Protein 6.2 L (6.3-8.2) g/dL Albumin 2.7 L (3.9-5) g/dL Calcium panel 02/21/18 Range/Units 07:10 Calcium 8.7 (8.4-10.2) mg/dL Albumin 2.7 L (3.9-5) g/dL Pituitary panel 02/21/18 Range/Units 07:10 Sodium 140 (137-145) mmol/L Potassium 3.0 L (3.6-5.0) mmol/L Chloride 104.3 (98-107) mmol/L Carbon Dioxide 22 (22-30) mmol/L BUN 6 L (7-17) mg/dL Creatinine 1.0 (0.7-1.2) mg/dL Glucose 105 H (65-100) mg/dL Calcium 8.7 (8.4-10.2) mg/dL Adrenal panel 02/21/18 Range/Units 07:10 Sodium 140 (137-145) mmol/L Potassium 3.0 L (3.6-5.0) mmol/L Chloride 104.3 (98-107) mmol/L Carbon Dioxide 22 (22-30) mmol/L BUN 6 L (7-17) mg/dL Creatinine 1.0 (0.7-1.2) mg/dL Glucose 105 H (65-100) mg/dL Calcium 8.7 (8.4-10.2) mg/dL Total Bilirubin 0.40 (0.1-1.2) mg/dL AST 15 (5-40) units/L ALT 14 (7-56) units/L Alkaline Phosphatase 94 (35-129) units/L Total Protein 6.2 L (6.3-8.2) g/dL Albumin 2.7 L (3.9-5) g/dL
== END 2018-02-21 18:00 | disposition home health service (06) | DRG 314 ==
LOC: ED 17:47 → CC1 22:16 → 4A 02-16 03:14 → 3A 02-19 20:41
PROVIDERS: ADMIT Internal Medicine; ATTEND Internal Medicine
PROC: 0JPT0WZ Removal of Totally Implantable Vascular Access Device from Trunk Subcutaneous Tissue and Fascia, Open Approach (ICD-10-PCS; principal; 2018-02-17)
PROC: 30233N1 Transfusion of Nonautologous Red Blood Cells into Peripheral Vein, Percutaneous Approach (ICD-10-PCS; 2018-02-20)
PROC: 02PY33Z Removal of Infusion Device from Great Vessel, Percutaneous Approach (ICD-10-PCS; 2018-02-20)
PROC: 02HV33Z Insertion of Infusion Device into Superior Vena Cava, Percutaneous Approach (ICD-10-PCS; 2018-02-20)
DX: T80.218A Other infection due to central venous catheter, initial encounter (principal); A41.9 Sepsis, unspecified organism; R65.21 Severe sepsis with septic shock; N39.0 Urinary tract infection, site not specified; D63.8 Anemia in other chronic diseases classified elsewhere; D70.9 Neutropenia, unspecified; C50.919 Malignant neoplasm of unspecified site of unspecified female breast; E87.6 Hypokalemia; I95.9 Hypotension, unspecified; R79.89 Other specified abnormal findings of blood chemistry; I10 Essential (primary) hypertension; Z22.322 Carrier or suspected carrier of Methicillin resistant Staphylococcus aureus; Z82.49 Family history of ischemic heart disease and other diseases of the circulatory system
CPT/HCPCS: 36415; 71045; 71046; 80048; 80053; 81001; 82140; 82805; 82962; 83735; 84100; 84703; 85007; 85025; 85610; 86403; 86850; 86900; 86901; 86920; 87040; 87076; 87086; 87116; 87186; 93005; 93010; 93306; 96365; 96366; 96367; 96375; J0690; J0692; J0780; J1447; J1450; J1650; J1956; J2405; J2543; J3370; J3480; J7030; J7040; J7050; P9016

== ENCOUNTER 2018-03-06 15:08 | Emergency (ER) | payer BC ==
--- NOTE | 2018-03-06 18:03 | XRay Report ---
FINAL REPORT EXAM: XR CHEST 1V AP HISTORY: confirm line placement TECHNIQUE: Frontal chest radiograph. PRIORS: 02/20/2018. FINDINGS: The left upper extremity PICC tip projects just within the right atrium. The cardiomediastinal silhouette is normal. No focal consolidation. No pleural effusion. No pneumothorax. No acute osseous abnormality. IMPRESSION: No acute cardiopulmonary process.
--- NOTE | 2018-03-06 18:08 | Emergency Department Report ---
ED General Adult HPI - General Chief complaint: Medical Clearance Stated complaint: PICC LINE REVISED Time Seen by Provider: 03/06/18 16:23 Source: patient Mode of arrival: Ambulatory Limitations: No Limitations - History of Present Illness Initial comments: Patient has a PICC in her left arm for vancomycin infusions. Today, the PICC would not draw back, but will flush without a problem. So, she was sent to the ER for evaluation. Patient did receive her dose of vancomycin today. AFebrile - Related Data Home Medications Medication Instructions Recorded Confirmed Last Taken Nebivolol HCl [Bystolic] 5 mg PO DAILY 12/02/17 02/16/18 02/15/18 Edarbyclor 40-25 mg 1 tab PO DAILY 02/16/18 02/16/18 02/15/18 Allergies Allergy/AdvReac Type Severity Reaction Status Date / Time No Known Allergies Allergy Verified 02/15/18 18:23 ED Review of Systems ROS: Stated complaint: PICC LINE REVISED Other details as noted in HPI Comment: All other systems reviewed and negative ED Past Medical Hx - Past Medical History Hx Hypertension: Yes (2010, takes bystolic) Hx Heart Attack/AMI: No Hx Congestive Heart Failure: No Hx Diabetes: No Hx Deep Vein Thrombosis: No Hx HIV: No - Surgical History Hx Pacemaker: No Hx Internal Defibrillator: No - Social History Smoking Status: Never Smoker Substance Use Type: None - Medications Home Medications: Home Medications Medication Instructions Recorded Confirmed Last Taken Type Nebivolol HCl [Bystolic] 5 mg PO DAILY 12/02/17 02/16/18 02/15/18 History Edarbyclor 40-25 mg 1 tab PO DAILY 02/16/18 02/16/18 02/15/18 History ED Physical Exam - General Limitations: No Limitations General appearance: alert, in no apparent distress - Head Head exam: Present: atraumatic, normocephalic - Eye Eye exam: Present: normal appearance - ENT ENT exam: Present: mucous membranes moist - Neck Neck exam: Present: normal inspection - Respiratory Respiratory exam: Present: normal lung sounds bilaterally. Absent: respiratory distress - Cardiovascular Cardiovascular Exam: Present: regular rate, normal rhythm, other (left arm picc c/d/i). Absent: systolic murmur, diastolic murmur, rubs, gallop - GI/Abdominal GI/Abdominal exam: Present: soft, normal bowel sounds. Absent: tenderness, guarding - Extremities Exam Extremities exam: Present: normal inspection - Back Exam Back exam: Present: normal inspection - Neurological Exam Neurological exam: Present: alert, oriented X3 - Psychiatric Psychiatric exam: Present: normal affect, normal mood - Skin Skin exam: Present: warm, dry, intact, normal color. Absent: rash ED Course Vital Signs 03/06/18 15:12 Temperature 98.3 F Pulse Rate 102 H Respiratory 16 Rate Blood Pressure 121/88 O2 Sat by Pulse 100 Oximetry ED Medical Decision Making - Radiology Data Radiology results: report reviewed, image reviewed - Medical Decision Making 37-year-old female with past medical history of daily vancomycin infusions presents with PICC line malfunction. Vital signs significant for heart rate of 102. This improved on reevaluation without intervention. I offered the patient TPA versus replacing her PICC line. She said that she would prefer to have her PICC line replaced. It was replaced at the bedside by the PICC team. Chest x-ray shows good line placement. The line flushes and draws without a problem. Patient is cleared for discharge. - Differential Diagnosis picc line malfunction Critical care attestation.: If time is entered above; I have spent that time in minutes in the direct care of this critically ill patient, excluding procedure time. ED Disposition Clinical Impression: Occluded PICC line Disposition: DC-01 TO HOME OR SELFCARE Is pt being admited?: No Does the pt Need Aspirin: No Condition: Stable Additional Instructions: If your picc line stops working again, please return to the ER for re- evaluation. Referrals: PRIMARY CARE, [Primary Care Provider] - 3-5 Days
[2018-03-06 18:52] VITALS: BP 128/85
== END 2018-03-06 18:28 | disposition home or self-care (01) ==
LOC: ED 15:08
DX: T82.898A Other specified complication of vascular prosthetic devices, implants and grafts, initial encounter (principal); I10 Essential (primary) hypertension
CPT/HCPCS: 71045; 99283

== ENCOUNTER 2018-03-16 06:28 | Outpatient (CLI) | payer BC ==
--- NOTE | 2018-03-16 10:55 | PET Report ---
PET/CT:03/16/18 06:28:00 CLINICAL: Breast cancer restaging. Status post CT guided liver biopsy 12/16/17 with positive hepatic metastasis. RADIOPHARMACEUTICAL: 10.27mCi F18-FDG. COMPARISON: 12/15/17 PET/CT TECHNIQUE- Following intravenous injection of F-18 FDG and an approximately 60 minute uptake period, CT and PET images from the mid skull to the upper thighs were acquired with the patient in the fasted state. No contrast was administered. The CT protocol used for this PET CT study is designed for attenuation correction and anatomic localization of PET abnormalities. This recreation attendant supervisor CT is not desired to produce and cannot replace, yhgow-hl-izx-art diagnostic CT scans with specific imaging protocols for different body parts and indications. Plasma glucose at the time of this test: 117g/dl. The standardized uptake values (SUV) are normalized to patient body weight and indicate the highest activity concentration (SUV max) in a given disease site. FINDINGS: Brain--Physiologic FDG uptake in the visualized regions of the brain. Neck--Physiologic FDG uptake in mucosal structures.. Chest--Decreased size and decreased FDG uptake in the left breast cancer. It measures 2.5 x 0.6 cm with SUV 1.9 compared to 3.1 x 1.6 cm and SUV 7.8. A small pericardial effusion is slightly larger and measures 9 mm maximum thickness at the base of the heart. Physiologic FDG uptake in mediastinal blood pool and myocardium. Lungs--No abnormal uptake. Stable 5 mm calcified granuloma the right upper lobe. No other pulmonary nodule or mass. Pleura/pericardium--No abnormal uptake. Thoracic nodes--No abnormal uptake. Small bilateral non-FDG avid axillary lymph nodes. The previously identified biopsy-proven left axillary metastatic lymph node has nearly completely disappeared. There is a biopsy clip with minimal adjacent soft tissue density. Calcified retrocaval pretracheal and right paratracheal lymph nodes. Hepatobiliary--The liver is heterogeneously hypodense and is smaller compared to the previous exam. The right lobe measures 15.4 cm in length compared to 17 cm on the last exam. The previously described hypodense masses are not discernible and previously identified FDG avid masses have decreased FDG uptake. The dominant left lobe lateral segment FDG avid lesion now has an SUV of 3.4 compared to 7.2. A right hepatic FDG avid lesion now has an SUV of 3.7 compared to 4.4. Liver background SUV mean, as a reference for comparing FDG studies, is 3.4 compared to 4.0 on the last exam. Spleen--No abnormal uptake. Pancreas--No abnormal uptake. Adrenal Glands--No abnormal uptake. Kidneys/Ureters/Bladder--No abnormal uptake. Abdominopelvic Nodes--No abnormal uptake. Bowel/Peritoneum/Mesentery--No abnormal uptake. Pelvic organs--No abnormal uptake. Bones/Soft Tissues--No abnormal uptake. No suspicious bone lesions. IMPRESSION- 1. A positive response to therapy with decreased hepatomegaly, decreased FDG uptake in previously identified lesions and decreased conspicuity of liver lesions. 2. No evidence of additional metastatic disease. 3. Old granulomatous disease with a 5 mm right upper lobe calcified granuloma and calcified mediastinal lymph nodes. 4. A slightly larger small pericardial effusion.
== END 2018-03-16 06:29 | disposition home or self-care (01) ==
LOC: PET 06:28
PROVIDERS: ATTEND Internal Medicine Hematology & Oncology
DX: C50.212 Malignant neoplasm of upper-inner quadrant of left female breast (principal); I31.3 Pericardial effusion (noninflammatory); D71 Functional disorders of polymorphonuclear neutrophils
CPT/HCPCS: 78815; 82962; A9552

== ENCOUNTER 2018-03-24 06:53 | Day surgery (SDC) | payer BC ==
[2018-03-24] MEDS ORDERED: ceFAZolin 2 GM in NACL 0.9% 100 ML IV SCH (07:00)
[2018-03-24] MEDS ORDERED: VERSED IV NR (08:00)
[2018-03-24] MEDS ORDERED: LACTATED RINGERS 1,000 ML IV SCH (08:00)
[2018-03-24] MEDS ORDERED: NACL BACTERIOSTATIC INFILTRATI ONE (08:10)
[2018-03-24] MEDS ORDERED: DIPRIVAN 10 MG/ML IV ONE (08:28)
[2018-03-24] MEDS ORDERED: DILAUDID ONE (08:28)
[2018-03-24] MEDS ORDERED: XYLOCAINE MPF 2% ONE (08:28)
[2018-03-24 08:34] LABS: Hematocrit 31.5 % (30.3-42.9); Hemoglobin 10.4 gm/dl (10.1-14.3)
--- NOTE | 2018-03-24 08:47 | Anesthesia Day of Surgery ---
Anesthesia Day of Surgery - Day of Surgery Patient Examined: Yes Patient H&P Reviewed: Yes Patient is NPO: Yes
[2018-03-24] MEDS ORDERED: ZOFRAN IV PRN (08:48)
[2018-03-24] MEDS ORDERED: DILAUDID IV PRN (08:48)
--- NOTE | 2018-03-24 08:48 | Anesthesia Consultation ---
Anesthesia Consult and Med Hx Date of service: 03/24/18 - Airway Anesthetic Teeth Evaluation: Good ROM Head & Neck: Adequate Mental/Hyoid Distance: Adequate Mallampati Class: Class I Intubation Access Assessment: Good - Pulmonary Exam CTA: Yes - Cardiac Exam Cardiac Exam: RRR - Pre-Operative Health Status ASA Pre-Surgery Classification: ASA3 Proposed Anesthetic Plan: General (GA with LMA ok) - Cardiovascular System Hx Hypertension: Yes (2010, takes bystolic) Hx Heart Attack/AMI: No Hx Pacemaker: No Hx Internal Defibrillator: No - Central Nervous System Hx Psychiatric Problems: No - Endocrine Hx Liver Disease: Yes (LIVER CANCER) - Hematic Hx Anemia: Yes - Other Systems Hx Alcohol Use: No Hx Substance Use: No Hx Cancer: Yes
[2018-03-24 08:49] LABS: Calcium 9.4 mg/dL (8.4-10.2)
[2018-03-24] MEDS ORDERED: ANCEF/STERILE WATER 2 GM/20 ML 2 GM/20 ML SYRINGE IV SCH (09:00)
[2018-03-24] MEDS ORDERED: XYLOCAINE 1% 20 mL ONE (09:01)
[2018-03-24] MEDS ORDERED: MARCAINE 0.25% INFILTRATI ONE ×2 (09:01→09:51)
[2018-03-24] MEDS ORDERED: HEPARIN 10,000 UNITS/10 ML ONE (09:02)
[2018-03-24] MEDS ORDERED: NACL 0.9% 100 ML ONE (09:02)
[2018-03-24] MEDS ORDERED: ZOFRAN ONE (09:17)
[2018-03-24] MEDS ORDERED: DECADRON ONE (09:17)
[2018-03-24] MEDS ORDERED: NEO SYNEPHRINE/NS Syringe(OR USE) IV ONE (09:39)
[2018-03-24] MEDS ORDERED: NACL 0.9% IR ONE (09:44)
[2018-03-24] MEDS ORDERED: HEPARIN 10,000 UNITS/10 ML IV ONE (09:45)
[2018-03-24] MEDS ORDERED: NACL 0.9% IV ONE (09:48)
[2018-03-24] MEDS ORDERED: XYLOCAINE 1% 20 mL INFILTRATI ONE (09:49)
[2018-03-24] MEDS ORDERED: ePHEDrine SULFATE ONE (09:57)
--- NOTE | 2018-03-24 10:26 | Operative Report ---
Operative Report Operative Report: Date of procedure: 03/24/18 Pre-op diagnosis: left breast cancer Post-op diagnosis: same Procedure: left subclavian port a cath placement with ultrasound guidance, fluoroscopy Anesthesia: GETA, local Findings: good placement of port without pneumothorax on intraop CXR Surgeon: NEIL KRAMER Estimated blood loss: minimal Pathology: none Condition: stable HPI and indication: Patient is a 38-year-old female who has a diagnosis of left- sided breast cancer who had a port placed back in November 2017 and was undergoing chemotherapy. The patient is seen by Dr. Farias and an outpatient. The patient unfortunately developed bacteremia and the source was the Port-A-Cath. The right-sided Port-A-Cath was removed in January 2018. The patient underwent treatment with IV antibiotics and most recent blood cultures were negative. She was therefore cleared for placement of Port-A-Cath to resume chemotherapy. All of the risks associated with the procedure were discussed with the patient including but not limited to pneumothorax, infection, bleeding, malpositioned port, injury to other structures. The patient understands and all questions were answered. Consent was signed and placed on chart. Procedure in detail: The patient was identified in the preoperative area, taken back to operating room, placed on operating table in supine position. After anesthesia was induced both arms were tucked and upper chest and neck were prepped and draped in usual sterile fashion. A timeout was performed. The was placed in Trendelenburg position. Local anesthetic was infiltrated into the skin at the intended puncture site. The left subclavian vein was visualized using ultrasound guidance was accessed on the first stick. There was return of dark red, nonpulsatile blood. The wire was threaded under fluoroscopy without resistance and positioning confirmed. The needle was then removed. Using a 15 blade, an incision was made in the LEFT upper chest and dissection carried down through the skin and subcutaneous tissue using Bovie electrocautery. Hemostasis was achieved along the way. A pocket for the port was then created bluntly and with electrocautery. The catheter was flushed and tunneled from the pocket to the wire. A breakaway catheter/dilator sheath then inserted over the wire under fluoroscopy, and the wire and dilator removed. The catheter was then inserted through the breakaway catheter which was then removed. The catheter sat flush under the skin. Using continuous fluoroscopy, the catheter was pulled back until the tip was visualized in the right atrium. The catheter was then cut to size and the port attached in the usual fashion. The port was then sutured into place to the pre-pectoral fascia using 2-0 Vicryl interrupted sutures. The wound was irrigated and hemostasis ensured. The port was tested with heparinized saline and there was return of blood and it flushed easily. The port was then instilled with 3000 units of heparin. The deep dermal layer was then closed with interrupted 3-0 Vicryl stitches. The skin incisions were closed with 4-0 Monocryl subcuticular stitches and skin glue. Intraoperative chest x-ray did show good positioning of the port, without evidence of pneumothorax At the end of the case, all sponge, instrument, sharp counts were correct 2. The patient was awoken from anesthesia and taken to PACU in stable condition.
--- NOTE | 2018-03-24 10:26 | Short Stay Summary ---
Short Stay Documentation Date of service: 03/24/18 - History Principal diagnosis: left breast cancer H&P: obtained from office - Allergies and Medications Current Medications: Allergies No Known Allergies Allergy (Verified 02/15/18 18:23) Home Medications Medication Instructions Recorded Confirmed Last Taken Type Nebivolol HCl [Bystolic] 5 mg PO DAILY 12/02/17 03/24/18 03/23/18 23:30 History Edarbyclor 40-25 mg 1 tab PO DAILY 02/16/18 03/24/18 03/23/18 23:30 History Active Medications Hydromorphone HCl (Dilaudid) 0.5 mg IV Q10MIN PRN PRN Reason: Pain , Severe (7-10) Stop: 03/24/18 13:00 Lactated Ringer's (Lactated Ringers) 1,000 mls @ 75 mls/hr IV DIRECT OLIVE Last Admin: 03/24/18 08:10 Dose: 75 mls/hr Cefazolin Sodium (Ancef/Sterile Water 2 Gm/20 Ml) 2 gm in 20 mls @ 80 mls/hr IV PREOP OLIVE Stop: 03/24/18 23:59 Midazolam HCl (Versed) 2 mg IV PREOP NR Stop: 03/24/18 23:59 Last Admin: 03/24/18 08:37 Dose: 2 mg Ondansetron HCl (Zofran) 4 mg IV ONCE PRN PRN Reason: Nausea And Vomiting Stop: 03/24/18 12:00 - Brief post op/procedure progress note Date of procedure: 03/24/18 Pre-op diagnosis: left breast cancer Post-op diagnosis: same Procedure: left subclavian port a cath placement with ultrasound guidance, fluoroscopy Anesthesia: GETA, local Findings: good placement of port without pneumothorax on intraop CXR Surgeon: NEIL KRAMER Estimated blood loss: minimal Pathology: none Condition: stable - Hospital course Hospital course: Pt was observed in the post operative area and discharged to home in stable condition once criteria was met. - Disposition Condition at discharge: Good Disposition: DC-01 TO HOME OR SELFCARE Short Stay Discharge Plan Activity: no restrictions Diet: regular Wound: open to air, other (may shower tomorrow, pat incisions dry, do not scrub. Do not submerge incisions in water.) Additional Instructions: Please call surgeon's office if you have redness/drainage around incision. Some bruising is normal. You can use over the counter tylenol and ibuprofen as directed for pain. Follow up with: SHABNAM MARTINEZ MD [Primary Care Provider] - 7 Days WILFREDO ZHOU MD [Staff Physician] - 7 Days MARCEL CAMPOS MD [Staff Physician] - 7 Days Forms: [facility]
[2018-03-24] MEDS ORDERED: TYLENOL PO ONE (11:30)
[2018-03-24 11:59] VITALS: BP 109/74
--- NOTE | 2018-03-24 13:54 | Fluoroscopy Report ---
Single view chest: Compared to 12/05/17. History: Left breast cancer. Findings: Heart size is upper limit of normal. Trachea is midline. No consolidation, pneumothorax or pleural effusion. Tip of left Nnhbeo-z-Iddq and right atrium. Impression: Tip of left Iljbqy-q-Lqie in right atrium .
== END 2018-03-24 11:57 | disposition home or self-care (01) ==
LOC: OR 06:53
PROVIDERS: ATTEND Surgery
DX: Z45.2 Encounter for adjustment and management of vascular access device (principal); C50.212 Malignant neoplasm of upper-inner quadrant of left female breast; I10 Essential (primary) hypertension; Z79.899 Other long term (current) drug therapy; Z83.3 Family history of diabetes mellitus; Z80.3 Family history of malignant neoplasm of breast; Z85.05 Personal history of malignant neoplasm of liver; Z86.2 Personal history of diseases of the blood and blood-forming organs and certain disorders involving the immune mechanism
CPT/HCPCS: 36415; 36561; 77001; 80048; 81025; 85014; 85018; C1788; J0690; J1100; J1170; J1644; J2250; J2370; J2405; J2704; J7120

== ENCOUNTER 2018-06-01 11:27 | Outpatient (CLI) | payer BC ==
--- NOTE | 2018-06-05 08:32 | PET Report ---
PET/CT:06/01/18 11:27:00 CLINICAL: Breast cancer restaging. RADIOPHARMACEUTICAL: 14.941mCi F18-FDG. COMPARISON: 03/16/18 PET/CT TECHNIQUE- Following intravenous injection of F-18 FDG and an approximately 60 minute uptake period, CT and PET images from the mid skull to the upper thighs were acquired with the patient in the fasted state. No contrast was administered. The CT protocol used for this PET CT study is designed for attenuation correction and anatomic localization of PET abnormalities. This arcade attendant CT is not desired to produce and cannot replace, faude-ox-xpm-art diagnostic CT scans with specific imaging protocols for different body parts and indications. Plasma glucose at the time of this test: 94g/dl. The standardized uptake values (SUV) are normalized to patient body weight and indicate the highest activity concentration (SUV max) in a given disease site. FINDINGS: Brain--Physiologic FDG uptake in the visualized regions of the brain. Neck--Physiologic FDG uptake in mucosal structures. No mass or lymphadenopathy. Chest--Physiologic FDG uptake in mediastinal blood pool and myocardium. Left Plarpj-j-Iabi tip is in the inferior aspect of the right atrium. The known left breast cancer is smaller and FDG uptake has resolved. Lungs--No abnormal uptake. No pulmonary nodule or mass. Pleura/pericardium--No abnormal uptake. Thoracic nodes--No abnormal uptake. Calcified retrocaval pretracheal and right paratracheal lymph nodes. Hepatobiliary--No abnormal uptake. The previously described FDG avid right and left hepatic lesions have resolved. Liver background SUV mean, as a reference for comparing FDG studies, is 3.0 compared to 3.4 on the last exam. Spleen--No abnormal uptake. Pancreas--No abnormal uptake. Adrenal Glands--No abnormal uptake. Kidneys/Ureters/Bladder--No abnormal uptake. Abdominopelvic Nodes--No abnormal uptake. Bowel/Peritoneum/Mesentery--No abnormal uptake. Pelvic organs--No abnormal uptake. Bones/Soft Tissues--No abnormal uptake and no suspicious bone lesions. IMPRESSION-1. Positive response to therapy with resolution of FDG uptake in the known left breast cancer and resolution of FDG avid hepatic lesions. 2. No new disease.
== END 2018-06-01 11:28 | disposition home or self-care (01) ==
LOC: PET 11:27
PROVIDERS: ATTEND Internal Medicine Hematology & Oncology
DX: C50.212 Malignant neoplasm of upper-inner quadrant of left female breast (principal); I10 Essential (primary) hypertension; Z90.12 Acquired absence of left breast and nipple
CPT/HCPCS: 78815; 82962; A9552

== ENCOUNTER 2018-10-26 07:19 | Outpatient (CLI) | payer BC ==
--- NOTE | 2018-10-27 13:20 | PET Report ---
PET/CT:10/26/18 07:19:00 CLINICAL: Left breast cancer restaging. RADIOPHARMACEUTICAL: 14.18mCi F18-FDG. COMPARISON: 06/01/18 PET/CT TECHNIQUE- Following intravenous injection of F-18 FDG and an approximately 60 minute uptake period, CT and PET images from the mid skull to the upper thighs were acquired with the patient in the fasted state. No contrast was administered. The CT protocol used for this PET CT study is designed for attenuation correction and anatomic localization of PET abnormalities. This speeder tender CT is not desired to produce and cannot replace, paqqk-cp-vwe-art diagnostic CT scans with specific imaging protocols for different body parts and indications. Plasma glucose at the time of this test: 93g/dl. The standardized uptake values (SUV) are normalized to patient body weight and indicate the highest activity concentration (SUV max) in a given disease site. FINDINGS: Brain--Physiologic FDG uptake in the visualized regions of the brain. Neck--Physiologic FDG uptake in mucosal structures. No mass or lymphadenopathy. Extensive benign physiologic uptake in brown fat of the neck. Chest--Physiologic FDG uptake in mediastinal blood pool and myocardium. Extensive benign physiologic uptake in brown fat. It particularly involves the bilateral supraclavicular fat and bilateral paraspinal fat. A left mastectomy has been performed since the last exam and there is a left breast implant. Lungs--No abnormal uptake. No pulmonary nodule or mass. Pleura/pericardium--No abnormal uptake. Thoracic nodes--No abnormal uptake. Calcified retrocaval pretracheal lymph nodes. Hepatobiliary--No abnormal uptake. Liver background SUV mean, as a reference for comparing FDG studies, is 3.4 compared to 3.2 on the last exam. No liver mass. Mild granulomatous hepatic calcifications. Spleen--No abnormal uptake. Numerous granulomatous calcifications. Pancreas--No abnormal uptake. Adrenal Glands--No abnormal uptake. Kidneys/Ureters/Bladder--No abnormal uptake. Abdominopelvic Nodes--No abnormal uptake. Bowel/Peritoneum/Mesentery--No abnormal uptake. Pelvic organs--No abnormal uptake. Bones/Soft Tissues--No abnormal uptake and no suspicious bone lesions. Other findings: Benign right perihepatic and left perisplenic FDG uptake likely originates from inferior chest wall muscles. IMPRESSION- Negative study with no evidence of disease recurrence or metastasis.
== END 2018-10-26 07:20 | disposition home or self-care (01) ==
LOC: PET 07:19
PROVIDERS: ATTEND Internal Medicine Hematology & Oncology
DX: C50.212 Malignant neoplasm of upper-inner quadrant of left female breast (principal); Z86.2 Personal history of diseases of the blood and blood-forming organs and certain disorders involving the immune mechanism
CPT/HCPCS: 78815; 82962; A9552

== ENCOUNTER 2019-03-07 08:54 | Observation (INO) | payer BC, OTHER ==
[~2019-03-07 08:54] MED LIST: ANCEF/STERILE WATER 2 GM/20 ML IV NR
[2019-03-07] MEDS ORDERED: LACTATED RINGERS 1,000 ML IV SCH ×2 (10:00→16:00)
[2019-03-07] MEDS ORDERED: LACTATED RINGERS 1,000 ML ONE ×2 (10:04→14:01)
[2019-03-07] MEDS ORDERED: ZOFRAN IV PRN ×2 (10:34→15:19)
--- NOTE | 2019-03-07 10:42 | Anesthesia Day of Surgery ---
Anesthesia Day of Surgery - Day of Surgery Patient Examined: Yes Patient H&P Reviewed: Yes Patient is NPO: Yes Beta Blockers: Yes
--- NOTE | 2019-03-07 10:43 | Anesthesia Consultation ---
Anesthesia Consult and Med Hx Date of service: 03/07/19 - Airway Anesthetic Teeth Evaluation: Good ROM Head & Neck: Adequate Mental/Hyoid Distance: Adequate Mallampati Class: Class I Intubation Access Assessment: Good - Pre-Operative Health Status ASA Pre-Surgery Classification: ASA2 Proposed Anesthetic Plan: General Nerve Block: PEC - Pulmonary Hx Smoking: No Hx Sleep Apnea: No (AYO PRE SCREEN LOW RISK.) - Cardiovascular System Hx Hypertension: Yes (2011. Can climb two flights of stairs) Hx Heart Attack/AMI: No Hx Pacemaker: No Hx Internal Defibrillator: No - Central Nervous System Hx Psychiatric Problems: No - Endocrine Hx Liver Disease: Yes (LIVER mets) - Hematic Hx Anemia: Yes - Other Systems Hx Alcohol Use: No Hx Substance Use: No Hx Cancer: Yes (Breast CA)
[2019-03-07] MEDS ORDERED: MARCAINE-EPI 0.25%-1:200,000 INFILTRATI ONE (10:50)
[2019-03-07] MEDS ORDERED: TYLENOL PO ONE (11:00)
[2019-03-07] MEDS ORDERED: NEURONTIN PO NR (11:00)
[2019-03-07] MEDS ORDERED: VERSED IV NR (11:00)
[2019-03-07] MEDS ORDERED: SUBLIMAZE IV ONE (11:00)
[2019-03-07] MEDS ORDERED: NACL P/F VIAL (10 ML) 20 ML ONE (11:49)
[2019-03-07] MEDS ORDERED: ANCEF ONE (11:50)
[2019-03-07] MEDS ORDERED: GENTAMICIN ONE (11:50)
[2019-03-07] MEDS ORDERED: BACITRACIN ONE (11:50)
[2019-03-07] MEDS ORDERED: NACL 0.9% 1000 ML 0 ML ONE (11:50)
[2019-03-07] MEDS ORDERED: METHYLENE BLUE ONE (11:51)
[2019-03-07] MEDS ORDERED: XYLOCAINE MPF 2% ONE (13:05)
[2019-03-07] MEDS ORDERED: ZEMURON IV ONE (13:05)
[2019-03-07] MEDS ORDERED: SUBLIMAZE ONE ×3 (13:05→16:20)
[2019-03-07] MEDS ORDERED: DIPRIVAN 10 MG/ML IV ONE (13:05)
[2019-03-07] MEDS ORDERED: ZOFRAN ONE (13:05)
[2019-03-07] MEDS ORDERED: NACL 0.9% IR ONE ×2 (13:47)
[2019-03-07] MEDS ORDERED: DECADRON ONE (14:00)
[2019-03-07] MEDS ORDERED: NEO-SYNEPHRINE ONE (14:00)
[2019-03-07] MEDS ORDERED: BENADRYL PO PRN (15:19)
[2019-03-07] MEDS ORDERED: SODIUM CHLORIDE FLUSH SYRINGE 10 ML IV PRN (15:19)
[2019-03-07] MEDS ORDERED: TYLENOL PO PRN (15:19)
[2019-03-07] MEDS ORDERED: DILAUDID PO PRN (15:19)
[2019-03-07] MEDS ORDERED: REGLAN PO PRN (15:19)
[2019-03-07] MEDS ORDERED: BACITRACIN IR ONE (15:21)
[2019-03-07] MEDS ORDERED: GENTAMICIN IV ONE (15:21)
[2019-03-07] MEDS ORDERED: ANCEF IV ONE (15:22)
[2019-03-07] MEDS ORDERED: NACL P/F VIAL (10 ML) INFILTRATI ONE (15:23)
[2019-03-07] MEDS ORDERED: METHYLENE BLUE IRRIGATION ONE (15:24)
--- NOTE | 2019-03-07 15:28 | Operative Report ---
Operative Report Operative Report: Operative Report: Date of Service: March 07, 2019 Preoperative diagnosis: Personal history of left breast cancer of the upper inner quadrant, Stage IV Postoperative diagnosis: Same Procedure: Right total mastectomy Surgeon: Aurelia Esqueda M.D. Health Diagnostics Teacher: Renetta Chavez M.D. Anesthesia: Gen. Findings: Right skin sparring total mastectomy Complications: None Drains: per Plastic Surgery Estimated blood loss: Minimal Disposition: Plastic Surgeon proceeded with right tissue vest maker placement Indications for operative procedure: This is a 38-year-old lady with Stage IV left breast cancer of the upper inner quadrant status post left total mastectomy with SLN. She completed neoadjvuant chemotherapy and recently completed adjuvant left chest wall radiation. PET prior to surgery with prior liver metastasis not present. Genetic testing with no significant gene mutation. Patient now wished to proceed with a prophylactic right total mastectomy followed by immediate tissue vest maker placement. She wished to proceed with the above procedure. Procedure in detail: Anesthesia placed right pectoral muscle block prior to going back to the operating room. The patient was taken to the operating room and was placed supine. Gen. anesthesia was administered. Right chest and axilla were prepped and draped in the normal sterile operative fashion. Timeout was performed. Typical mastectomy incision marking was made for skin sparing mastectomy around the NAC. Attention was taken towards the right breast. A skin incision was made with a 10 blade knife and dissection taken down to the subcutaneous tissues. First began raising of the superior flap to the level of the clavicle superiorly and posteriorly to the pectoralis muscle. Followed by raising of the medial flap to the level of the sternum and posteriorly to the pectoralis muscle. Followed by raising of the lateral flap to the level of the latissimus dorsi muscle and taken down posteriorly. Then proceeded with raising of the inferior flap to the level of the inframammary fold taken posterior to the pectoralis muscle. The mastectomy/breast was removed from the pectoralis muscle without incident. The specimen was appropriately marked and sent to pathology. Plastic surgery then proceeded with left tissue vest maker placement. She tolerated surgery very well.
--- NOTE | 2019-03-07 15:29 | Short Stay Summary ---
Short Stay Documentation Date of service: 03/07/19 - History H&P: obtained from office - Allergies and Medications Current Medications: Allergies No Known Allergies Allergy (Verified 02/15/18 18:23) Home Medications Medication Instructions Recorded Confirmed Last Taken Type Nebivolol HCl [Bystolic] 5 mg PO DAILY 12/02/17 03/07/19 03/06/19 21:00 History Edarbyclor 40-25 mg 1 tab PO DAILY 02/16/18 03/07/19 03/06/19 21:00 History Ferrous Sulfate [High Potency Iron] 27 mg PO DAILY 08/08/18 02/27/19 08/15/18 History Polyethylene Glycol 3350 [Miralax] 1 dose PO PRN PRN 08/08/18 02/27/19 Unknown History Anastrozole [Arimidex] 1 mg PO DAILY 08/14/18 03/07/19 03/06/19 21:00 History diphenhydrAMINE [Benadryl CAP] 50 mg PO QHS 02/27/19 03/07/19 03/05/19 21:00 History Active Medications Cefazolin Sodium (Ancef/Sterile Water 2 Gm/20 Ml) 2 gm IV PREOP NR Stop: 03/07/19 23:59 Celecoxib (Celebrex) 200 mg PO PREOP NR Stop: 03/07/19 23:00 Last Admin: 03/07/19 11:10 Dose: 200 mg Documented by: Fentanyl (Sublimaze) 50 mcg IV Q5MIN PRN PRN Reason: Pain , Severe (7-10) Stop: 03/07/19 23:00 Gabapentin (Neurontin) 300 mg PO PREOP NR Stop: 03/07/19 23:01 Last Admin: 03/07/19 11:10 Dose: 300 mg Documented by: Lactated Ringer's (Lactated Ringers) 1,000 mls @ 75 mls/hr IV DIRECT OLIVE Last Admin: 03/07/19 10:15 Dose: 75 mls/hr Documented by: Midazolam HCl (Versed) 2 mg IV PREOP NR Stop: 03/07/19 23:59 Last Admin: 03/07/19 11:30 Dose: 2 mg Documented by: Ondansetron HCl (Zofran) 4 mg IV ONCE PRN PRN Reason: Nausea And Vomiting - Brief post op/procedure progress note Date of procedure: 03/07/19 Pre-op diagnosis: Personal history of left breast cancer Post-op diagnosis: same Procedure: Right total mastectomy Anesthesia: GETA Findings: Right total mastectomy Surgeon: MARCEL CAMPOS Contact Center Representative: BENITEZ GANN Estimated blood loss: minimal Pathology: list (right mastectomy) Specimen disposition: to lab Condition: stable - Disposition Condition at discharge: Good Disposition: [id number]-01 TO HOME OR SELFCARE Short Stay Discharge Plan Activity: other (no heavy lifting) Diet: regular Wound: keep clean and dry Follow up with: SHABNAM MARTINEZ MD [Primary Care Provider] - 7 Days MARCEL CAMPOS MD [Staff Physician] - 7 Days
[2019-03-07] MEDS: SUBLIMAZE IV PRN ×2 (16:21→16:29)
--- NOTE | 2019-03-07 17:53 | Post Anesthesia Evaluation ---
- Post Anesthesia Evaluation Patient Participated: Yes Airway Patent: Yes Stable Respiratory Function: Yes Nausea/Vomiting: No Temp > 96.8F: Yes Pain Manageable: Yes Adequeate Hydration: Yes Anesthesia Complications: No Block Receding Appropriately: Not Applicable (block for post op analgesia)
--- NOTE | 2019-03-07 19:18 | Operative Report ---
PREOPERATIVE DIAGNOSIS: Personal history of left breast cancer. POSTOPERATIVE DIAGNOSIS: Personal history of left breast cancer. PROCEDURE: 1. Right breast reconstruction using tissue tank cooper for contralateral prophylactic mastectomy due to a left-sided cancer. 2. Right breast reconstruction using biological mesh for contralateral prophylactic mastectomy and reconstruction due to a left-sided breast cancer. 3. Application of IVÁN negative pressure wound VAC device of the right breast for postoperative wound healing. SURGEON: Dank Ann MD SQL SERVER DEVELOPER: None. ANESTHESIA: General. OPERATIVE INDICATIONS: This is a 38-year-old female with a history of left-sided breast cancer who had undergone left mastectomy and tissue tank cooper reconstruction followed by postoperative radiation. She now presented with desire for contralateral mastectomy to prevent future recurrence as well as achieve better symmetry with her reconstruction. She consulted with Dr. Aurelia Esqueda, who went ahead and agreed with proceeding with a right-sided prophylactic mastectomy. Plan was to mirror her reconstruction with a tissue tank cooper reconstruction. Risks and benefits of surgery were discussed with the patient. She agreed. OPERATIVE DETAILS: After informed consent obtained, the patient was brought to the operating room and placed supine on the operating room table. Preoperative antibiotics and general anesthesia were administered. The patient was prepped and draped in usual sterile fashion. Timeout was called verifying the patient, operation being performed, side and site of the operation. Dr. Esqueda began her portion of the operation, which will be dictated separately. When she completed the right-sided mastectomy, I evaluated the defect and we achieved hemostasis. We then went ahead and prepared a composite breast implant. The plan was to perform a tissue tank cooper and a biological mesh composite prepectoral implant to match the left side. We went ahead and took a [employer] ultra high profile 535 mL tissue tank cooper with serial #[id number] and we wrapped that with 2 pieces of FlexHD pliable shaped medium 11 x 20 cm with serial #[id number] and the other piece with serial #[id number]. All the air was removed from the tank cooper and then the tank cooper was filled to 300 mL of methylene blue tinted saline. We then performed a wrap of the tank cooper sewing the 2 pieces of FlexHD together anteriorly securing them to the suture tabs and using spanning sutures posteriorly in order to create a near full wrap. Once this was done, we soaked everything in antibiotic irrigation and Betadine. We then brought the composite implant on the field, placed it on the chest wall in the correct position and then sutured in place using 2-0 PDS sutures along the suture tabs as well as superiorly using the FlexHD wrap. We then placed a 15 and a 19-Greek round Riaz drain, irrigated again and achieved hemostasis and began with closure. We closed with 2-0 Vicryl interrupted deep scalpel sutures to take tension off the closure and then closed with a 2-0 Monocryl V-Loc barbed suture in a subcuticular fashion. We applied a IVÁN negative pressure wound VAC device to the incision for postoperative wound healing and applied the Riaz drains to bulb suction. The patient tolerated the procedure well, was awakened from general anesthesia, transferred to PACU in stable condition. ESTIMATED BLOOD LOSS: Minimal. COMPLICATIONS: None. SPECIMENS: None. FILL VOLUME: 300 mL. JOB# [id number] CHRISTO/SARAH
[2019-03-07] MEDS: PERCOCET 5/325 PO PRN (20:18)
[2019-03-07] MEDS ORDERED: COLACE PO SCH (22:00)
[2019-03-08] MEDS: PERCOCET 5/325 PO PRN ×2 (02:33→09:08)
--- NOTE | 2019-03-08 07:53 | Progress Note ---
Assessment and Plan This is a 38 year old lady with Stage IV left breast cancer-currently with no active disease, POD#1 prophylactic right total mastectomy followed by immediate tissue furniture delivery driver placement by plastic surgery. 1. No acute events overnight. 2. Pain in good control. 3. Right chest incision healing well, PICCO dressing intact. 4. INGA drain education. 5. OOB to hallway. 6. D/C planning for today. Subjective Date of service: 03/08/19 Principal diagnosis: History of Stage IV left breast cancer-not in active disease Interval history: POD#1 right prophylactic total mastectomy Objective - Constitutional Vitals: Vital Signs - 12hr 03/08/19 03/08/19 00:30 04:00 Temperature 98.7 F 98.4 F Pulse Rate 72 71 Respiratory 18 16 Rate Blood Pressure 102/78 108/64 [Right] General appearance: Present: no acute distress - EENT Eyes: PERRL, EOM intact ENT: hearing intact, clear oral mucosa, dentition normal Ears: bilateral: normal - Neck Neck: supple - Respiratory Respiratory effort: normal Respiratory: bilateral: CTA - Breasts Breasts: other (right chest incision PICCO dressing in place to suction; INGA drains to bulb suction, no hematoma) - Cardiovascular Rhythm: regular Extremities: no ischemia, pulses intact, pulses symmetrical, No edema, normal temperature, normal color, Full ROM - Gastrointestinal General gastrointestinal: Present: soft, non-tender, non-distended Rectal Exam: deferred - Genitourinary Female genitourinary: deferred - Integumentary Integumentary: clear, warm, dry - Musculoskeletal Musculoskeletal: strength equal bilaterally - Neurologic Neurologic: CNII-XII intact, moves all extremities - Psychiatric Psychiatric: appropriate mood/affect, intact judgment & insight, memory intact, cooperative Medications & Allergies - Medications Allergies/Adverse Reactions: Allergies No Known Allergies Allergy (Verified 02/15/18 18:23) Home Medications: Home Medications Medication Instructions Recorded Confirmed Last Taken Type Nebivolol HCl [Bystolic] 5 mg PO DAILY 12/02/17 03/07/19 03/06/19 21:00 History Edarbyclor 40-25 mg 1 tab PO DAILY 02/16/18 03/07/19 03/06/19 21:00 History Ferrous Sulfate [High Potency Iron] 27 mg PO DAILY 08/08/18 02/27/19 08/15/18 History Polyethylene Glycol 3350 [Miralax] 1 dose PO PRN PRN 08/08/18 02/27/19 Unknown History Anastrozole [Arimidex] 1 mg PO DAILY 08/14/18 03/07/19 03/06/19 21:00 History diphenhydrAMINE [Benadryl CAP] 50 mg PO QHS 02/27/19 03/07/19 03/05/19 21:00 History Active Medications: Generic Name Dose Route Start Last Admin Trade Name Nelida PRN Reason Stop Dose Admin Acetaminophen 650 mg 03/07/19 15:19 Tylenol PO Q6H PRN Pain MILD(1-3)/Fever >100.5/PEREZ Diphenhydramine HCl 25 mg 03/07/19 15: Benadryl PO Q8H PRN Itching Docusate Sodium 100 mg 03/07/19 22:00 03/07/19 22:00 Colace PO Not Given BID OLIVE Hydromorphone HCl 2 mg 03/07/19 15:19 Dilaudid PO Q6H PRN Pain , Severe (7-10) Lactated Ringer's 1,000 mls @ 125 mls/hr 03/07/19 16:00 Lactated Ringers IV DIRECT OLIVE Metoclopramide HCl 10 mg 03/07/19 15:19 Reglan PO Q6H PRN Nausea And Vomiting Ondansetron HCl 4 mg 03/07/19 10:34 Zofran IV ONCE PRN Nausea And Vomiting Ondansetron HCl 4 mg 03/07/19 15:19 Zofran IV Q8H PRN N/V unrelieved by Reglan Oxycodone/Acetaminophen 1 tab 03/07/19 15:19 03/08/19 02:33 Percocet 5/325 PO 1 tab Q6H PRN Administration Pain, Moderate (4-6) Sodium Chloride 10 ml 03/07/19 15:19 Sodium Chloride Flush Syringe 10 Ml IV PRN PRN LINE FLUSH
[2019-03-08 12:29] VITALS: BP 149/82
== END 2019-03-08 12:45 | disposition home or self-care (01) ==
LOC: OR 08:54 → OB 15:19
PROVIDERS: ADMIT Surgery; ATTEND Surgery
DX: Z85.3 Personal history of malignant neoplasm of breast (principal); I10 Essential (primary) hypertension; N60.11 Diffuse cystic mastopathy of right breast; Z79.899 Other long term (current) drug therapy; Z80.3 Family history of malignant neoplasm of breast
CPT/HCPCS: 19303; 19357; 38525; 38792; 64450; 88307; C1789; G0378; J0690; J1580; J2250; J2405; J2704; J3010; J7120; Q4128; Q9968; 88309; J1100; J2370; J7030

== ENCOUNTER 2019-06-15 09:48 | Outpatient (CLI) | payer BC ==
--- NOTE | 2019-06-15 12:27 | Cat Scan Report ---
CT CHEST WITH CONTRAST INDICATION / CLINICAL INFORMATION: C50.212 MALIGNANT NEOPLASM OF UPPER INNER QUADRANT OF LEFT. TECHNIQUE: Axial CT images were obtained through the chest after 100 cc of Omnipaque 300 IV contrast. Sagittal a nd coronal reformatted images. All CT scans at this location are performed using CT dose reduction fo r ALARA by means of automated exposure control. COMPARISON: None available. FINDINGS: HEART: No significant abnormality. THORACIC AORTA: No significant abnormality. MEDIASTINUM and SARA: No significant abnormality. LUNGS: No acute air space or interstitial disease. No pulmonary nodule, mass or infiltrate. PLEURA: No significant pleural effusion. No pneumothorax. SKELETAL SYSTEM: No significant abnormality. No suspicious bony lesion. Additional findings: Bilateral breast tissue expanders are in place and intact. Left Reneyf-q-Ajdp is in position. IMPRESSION: Unremarkable CT chest with contrast. No evidence for recurrent or metastatic disease. Signer Name: Hair Campbell Jr, MD Signed: 06/15/2019 12:23 PM Workstation Name: [id number]
--- NOTE | 2019-06-15 13:18 | Cat Scan Report ---
CT CHEST WITH CONTRAST INDICATION / CLINICAL INFORMATION: C50.212 MALIGNANT NEOPLASM OF UPPER INNER QUADRANT OF LEFT FEMALE. TECHNIQUE: Axial CT images were obtained through the chest after 100 cc of Omnipaque 300 IV contrast. Sagittal a nd coronal reformatted images. All CT scans at this location are performed using CT dose reduction fo r ALARA by means of automated exposure control. COMPARISON: None available. FINDINGS: HEART: No significant abnormality. THORACIC AORTA: No significant abnormality. MEDIASTINUM and SARA: No significant abnormality. LUNGS: No acute air space or interstitial disease. No pulmonary nodule, mass or infiltrate. PLEURA: No significant pleural effusion. No pneumothorax. SKELETAL SYSTEM: No significant abnormality. No suspicious bony lesion. Additional findings: Bilateral breast tissue expanders are in place and intact. Left Uppgce-d-Ixfq is in position. IMPRESSION: Unremarkable CT chest with contrast. No evidence for recurrent or metastatic disease. Signer Name: Hair Campbell Jr, MD Signed: 06/15/2019 1:14 PM Workstation Name: [id number]
--- NOTE | 2019-06-15 13:55 | Nuclear Medicine Report ---
. NUCLEAR MEDICINE BONE SCAN, WHOLE BODY INDICATION: C50.212 MALIGNANT NEOPLASM OF UPPER INNER QUADRANT OF LEFT. TECHNIQUE: 26.9 mCi of Tc-99m MDP were injected IV. Whole body images were obtained. COMPARISON: No relevant prior imaging study available. FINDINGS: Skeletal Structures: Fairly symmetric, likely degenerative uptake is present involving the shoulders , hips, knees and feet. Skeletal Lesions: None. Soft Tissues: Normal. Kidneys: Normal, symmetric activity. Additional Findings: None. IMPRESSION: No significant scintigraphic abnormality. Signer Name: Hair Campbell Jr, MD Signed: 06/15/2019 1:50 PM Workstation Name: [id number]
== END 2019-06-15 09:49 | disposition home or self-care (01) ==
LOC: NM 09:48
PROVIDERS: ATTEND Internal Medicine Hematology & Oncology
DX: C50.212 Malignant neoplasm of upper-inner quadrant of left female breast (principal); D21.9 Benign neoplasm of connective and other soft tissue, unspecified; I10 Essential (primary) hypertension; Z86.2 Personal history of diseases of the blood and blood-forming organs and certain disorders involving the immune mechanism
CPT/HCPCS: 36415; 71260; 74177; 78306; 82565; 84520; A9503; Q9967

== ENCOUNTER 2019-07-23 10:10 | Outpatient (CLI) | payer BC ==
--- NOTE | 2019-07-23 12:53 | Cat Scan Report ---
CT head/brain wo/w con INDICATION: C50.212 MALIGNANT NEOPLASM OF UPPER-INNER QUADRANT OF LEFT FEMALE. TECHNIQUE: Routine CT head without and with IV contrast. All CT scans at this location are performed using CT dose reduction for ALARA by means of automated exposure control. The patient received 100 mL of IV Omnipaque 300. COMPARISON: None. FINDINGS: BRAIN / INTRACRANIAL CONTENTS: No acute hemorrhage, mass effect, midline shift, or hydrocephalus. No appreciable acute large territorial or lacunar infarct. No evidence of mass lesion. No abnormal enhan cement. Ventricular and cisternal size for age. No calvarial or skull base bone lesions. ORBITS: No significant abnormality of visualized orbits. SINUSES / MASTOIDS: No significant abnormality of visualized sinuses and mastoid air cells. ADDITIONAL FINDINGS: None. IMPRESSION: 1. No acute intracranial abnormality or CT findings to suggest metastatic disease. Signer Name: Thang Toledo MD Signed: 07/23/2019 12:49 PM Workstation Name: [id number]
== END 2019-07-23 10:11 | disposition home or self-care (01) ==
LOC: CT 10:10
PROVIDERS: ATTEND Internal Medicine Hematology
DX: C50.212 Malignant neoplasm of upper-inner quadrant of left female breast (principal); R51 Headache
CPT/HCPCS: 36415; 70470; 82565; 84520

== ENCOUNTER 2019-08-10 05:52 | Day surgery (SDC) | payer BC ==
[~2019-08-10 05:52] MED LIST changes: -ANCEF/STERILE WATER 2 GM/20 ML IV NR; +BUPIVACAINE/PF (0.5%) 5 MG/1 ML 30 ML VIAL INFILTRATI ONE
[2019-08-10] MEDS ORDERED: GENTAMICIN 40 MG/ML VIAL 2 ML ONE (07:12)
[2019-08-10] MEDS ORDERED: SODIUM CHLORIDE 0.9% 1000 ML 0 ML ONE (07:12)
[2019-08-10] MEDS ORDERED: ceFAZolin 1 GM VIAL ONE (07:13)
[2019-08-10] MEDS ORDERED: SODIUM CHLORIDE P/F VIAL 10 ML 10 ML ONE (07:17)
[2019-08-10] MEDS ORDERED: LACTATED RINGERS 1,000 ML ONE ×3 (07:17→09:41)
[2019-08-10] MEDS ORDERED: EPINEPHrine/PF (1:1,000) 1 MG/1 ML INJ ONE (07:18)
[2019-08-10] MEDS ORDERED: BACITRACIN 50,000 UNIT VIAL ONE (07:18)
[2019-08-10] MEDS ORDERED: METHYLENE BLUE 50 MG/10 ML AMP ONE (07:18)
--- NOTE | 2019-08-10 07:21 | Anesthesia Consultation ---
Anesthesia Consult and Med Hx Date of service: 08/10/19 - Airway Anesthetic Teeth Evaluation: Good ROM Head & Neck: Adequate Mental/Hyoid Distance: Adequate Mallampati Class: Class II Intubation Access Assessment: Probably Good - Pre-Operative Health Status ASA Pre-Surgery Classification: ASA2 Proposed Anesthetic Plan: General - Pulmonary Hx Smoking: No Hx Sleep Apnea: No (AYO PRE SCREEN LOW RISK.) - Cardiovascular System Hx Hypertension: Yes (2011. Can climb two flights of stairs) - Central Nervous System Hx Psychiatric Problems: No - Endocrine Hx Renal Disease: Yes (renal insufficiency) Hx End Stage Renal Disease: No Hx Liver Disease: Yes (LIVER mets) - Hematic Hx Anemia: Yes - Other Systems Hx Alcohol Use: No Hx Substance Use: No Hx Cancer: Yes (Breast CA. s/p mastectomy, chemo) Hx Obesity: Yes
--- NOTE | 2019-08-10 07:22 | Anesthesia Day of Surgery ---
Anesthesia Day of Surgery - Day of Surgery Patient Examined: Yes Patient H&P Reviewed: Yes Patient is NPO: Yes Beta Blockers: Yes
[2019-08-10] MEDS ORDERED: ceFAZolin/STERILE WATER 2 GM/20 ML SYRINGE IV NR (07:24)
[2019-08-10] MEDS ORDERED: PROPOFOL 200 MG/20 ML VIAL IV ONE (07:43)
[2019-08-10] MEDS ORDERED: fentaNYL 100 MCG/2 ML INJ ONE (07:43)
[2019-08-10] MEDS ORDERED: LIDOCAINE MPF (2%) 20 MG/1 ML VIAL 5 ML ONE (07:44)
[2019-08-10] MEDS ORDERED: LACTATED RINGERS 1,000 ML IV SCH (08:00)
[2019-08-10] MEDS ORDERED: MIDAZOLAM 2 MG/2 ML INJ IV NR (08:00)
[2019-08-10] MEDS ORDERED: FAMOTIDINE 20 MG/2 ML INJ IV NR (08:00)
[2019-08-10] MEDS ORDERED: LACTATED RINGERS 1000 ML IV SOLN IV ONE (08:16)
[2019-08-10] MEDS ORDERED: EPINEPHrine/PF (1:1,000) 1 MG/1 ML INJ IV ONE (08:16)
[2019-08-10] MEDS ORDERED: BUPIVACAINE/PF (0.5%) 5 MG/1 ML 30 ML VIAL INFILTRATI ONE ×2 (08:16→09:00)
[2019-08-10] MEDS ORDERED: ceFAZolin 1 GM VIAL IR ONE (08:48)
[2019-08-10] MEDS ORDERED: GENTAMICIN 40 MG/ML VIAL 2 ML IV ONE (08:48)
[2019-08-10] MEDS ORDERED: BACITRACIN 50,000 UNIT VIAL IR ONE (08:48)
[2019-08-10] MEDS ORDERED: dexAMETHasone 20 MG/5 ML VIAL ONE (09:29)
[2019-08-10] MEDS ORDERED: PHENYLEPHRINE/NS 1,000 MCG/10 ML SYRINGE (OR USE) IV ONE (09:29)
[2019-08-10] MEDS ORDERED: NEOSTIGMINE 10MG/10 ML INJ MDV ONE (09:30)
[2019-08-10] MEDS ORDERED: ROCURONIUM 50 MG/5 ML INJ IV ONE (09:30)
[2019-08-10] MEDS ORDERED: ONDANSETRON 4 MG/2 ML INJ ONE (09:30)
[2019-08-10] MEDS ORDERED: GLYCOPYRROLATE 0.4 MG/2 ML INJ ONE (09:30)
[2019-08-10] MEDS ORDERED: KETOROLAC 30 MG/1 ML INJ ONE (09:59)
[2019-08-10] MEDS ORDERED: HYDROmorphone 1 MG/1 ML INJ ONE (10:07)
[2019-08-10] MEDS ORDERED: MEPERIDINE 25 MG/1 ML INJ ONE (10:21)
[2019-08-10] MEDS ORDERED: HYDROmorphone 1 MG/1 ML INJ IV PRN (11:00)
[2019-08-10] MEDS ORDERED: oxyCODONE /ACETAMINOPHEN 5-325MG TAB PO PRN (11:30)
[2019-08-10 11:55] VITALS: BP 102/52
--- NOTE | 2019-08-10 12:09 | Operative Report ---
PREOPERATIVE DIAGNOSIS: Personal history of left breast cancer. POSTOPERATIVE DIAGNOSIS: Personal history of left breast cancer. PROCEDURE: 1. Exchange of bilateral tissue expanders for permanent silicone implants. 2. Extensive capsulotomy of bilateral breasts with repositioning of the left inframammary fold. 3. Harvesting of fat from the abdomen for fat transfer. 4. Bilateral breast reconstruction using other technique, fat transfer. SURGEON: Dr. Dank Ann. HOT PLATE [employer] PRESS OFFBEARER: None. ANESTHESIA: General. OPERATIVE INDICATIONS: This is a 39-year-old female with a history of left-sided breast cancer who had undergone bilateral mastectomies and tissue field sales representative reconstruction. The left breast was also radiated postoperatively, she was subsequently expanded in the office and now presents for field sales representative to implant exchange and additional reconstruction of her breast. The expanders were not in very good position. The left field sales representative was very high and medial creating almost a confluence of the left and the right breast across the midline. She needed that repositioned and fat grafting was required to thicken the very thin tissue of the mastectomy skin flaps. OPERATIVE DETAILS: With informed consent obtained, the patient was brought to the operating room and placed supine on the operating room table. Preoperative antibiotics and general anesthesia were administered. The patient was prepped and draped in usual sterile fashion. Timeout was called verifying the name of the patient, operation being performed. We began by making a small stab incision in the lower abdomen and infiltrated the lower abdomen with approximately 200 mL of tumescent fluid. We waited 7-10 minutes for epinephrine to take effect. We then used the lipografter system to harvest fat from the lower abdomen. The fat was placed into a small IV bag and it was allowed to decant and then we removed the excess fluid and at the end of the procedure fat grafted to bilateral breasts. While that was happening, we turned our attention to the implants. Starting on the right, I opened up her previous mastectomy incision, dissected down to the capsule, elevated flaps, then incised the capsule and drained the fluid from the tissue field sales representative so could be removed. We then inspected the pocket and everything looked fine. We did the same thing on the left side. I then placed temporary silicone sizers in to get an idea of the position of the pocket and what needed to be done. We took those back out on the right side. I had to perform a more than typical extensive capsulotomy laterally up the capsule inferiorly in order to reposition the pocket appropriately. On the left side, I had to perform an even more extensive capsulotomy laterally due to all the scar tissue and then inferiorly we had to actually lower the inframammary fold by about 2 cm with extensive scoring of the lower pole of the breast to expand that tissue. Once that was done, we placed the sizers back in and reassessed. I was much more happy with the position now of the implants when we sat the patient up. The left side still was a little bit elevated, but the hope would be that over time the tissues would relax and she would get some further improvement of that left breast. We also planned on fat grafting and to help reverse some of the radiation changes. We then went ahead and did the fat grafting with the temporary sizers in place. I put about 50 mL of fat into the right breast, mostly in the upper pole and then throughout the upper mastectomy skin flap. On the left side same thing was done, but it required 80 mL of fat on that side due to the fact that it was much more thin on the left side. Once all the fat was in place, we went ahead and took out our sizers. We irrigated the pockets with Betadine and then triple antibiotic irrigation. We achieved hemostasis and injected Marcaine into the chest wall. We then opened up our silicone implants and using a no-touch technique with a Mcdonald funnel and new gloves, we placed the implant into the appropriate pocket. We used [employer] smooth round ultra high profile 650 mL silicone implant. The left side, the serial was [id number]. On the right side, it was serial #[id number]. We then closed the capsules with 2-0 Vicryl [id number] interrupted sutures, 3-0 Monocryl deep dermals on the skin and then 2-0 Monocryl subcuticular V-Loc barbed suture and then Dermabond. Right before closure, I injected a couple of millimeters of fat just underneath the incision on the left side in order to add some thickness to the area right below the incision as the skin was paper thin in that area. Once that was done, we closed up the lipo incision. The only thing I was not happy was that she still had significant prominence of the sternum. Part of it appeared to be bony and that she had a prominent sternum and the component was some fat there and so I went ahead and made a small stab incision and we infiltrated some tumescent fluid and then liposuctioned the sternum to try to get rid of some of that redundant fat and then after we closed that up, we went ahead and placed some foam over the sternum and taped that down to provide some additional compression to get the skin to hopefully stick down and scar a little bit. We then placed the patient into a breast binder. We woke her from general anesthesia and transferred to PACU in stable condition. ESTIMATED BLOOD LOSS: Minimal. COMPLICATIONS: None. SPECIMENS: None. JOB# [id number] CHRISTO/SARAH
--- NOTE | 2019-08-11 06:53 | Post Anesthesia Evaluation ---
- Post Anesthesia Evaluation Patient Participated: Yes Airway Patent: Yes Stable Respiratory Function: Yes Nausea/Vomiting: No Temp > 96.8F: Yes Pain Manageable: Yes Adequeate Hydration: Yes Anesthesia Complications: No Block Receding Appropriately: Not Applicable Patient on Ventilator: No
== END 2019-08-10 05:53 | disposition home or self-care (01) ==
LOC: OR 05:52
PROVIDERS: ATTEND Plastic Surgery
DX: Z42.1 Encounter for breast reconstruction following mastectomy (principal); I10 Essential (primary) hypertension; E66.9 Obesity, unspecified; Z68.38 Body mass index [BMI] 38.0-38.9, adult; Z90.12 Acquired absence of left breast and nipple; Z98.890 Other specified postprocedural states; Z85.3 Personal history of malignant neoplasm of breast; Z79.899 Other long term (current) drug therapy; Z87.440 Personal history of urinary (tract) infections; Z80.3 Family history of malignant neoplasm of breast; Z85.05 Personal history of malignant neoplasm of liver; Z82.49 Family history of ischemic heart disease and other diseases of the circulatory system; Z86.2 Personal history of diseases of the blood and blood-forming organs and certain disorders involving the immune mechanism
CPT/HCPCS: 19371; 19380; 20926; C1789; J0171; J0690; J1100; J1170; J1580; J1885; J2175; J2250; J2370; J2405; J2704; J2710; J3010; J7120; J7030; Q9968

== ENCOUNTER 2020-06-05 09:59 | Outpatient (CLI) | payer BC ==
--- NOTE | 2020-06-05 14:57 | Nuclear Medicine Report ---
NUCLEAR MEDICINE BONE SCAN, LIMITED INDICATION / CLINICAL INFORMATION: MALIGNANT NEOPLASM OF UPPER INNER QUADRANT OF LEFT BREAST. TECHNIQUE: 26 mCi of Tc-99m MDP were injected IV. Images were obtained of the . COMPARISON: No relevant prior imaging study available. FINDINGS: BONES: No osseous lesion or other abnormality. JOINTS: Degenerative activity. SOFT TISSUES: No significant abnormality. ADDITIONAL FINDINGS: None. IMPRESSION: 1. No significant scintigraphic abnormality. Signer Name: Marcel Ospina MD Signed: 06/05/2020 2:52 PM Workstation Name: [id number]
--- NOTE | 2020-06-05 16:10 | Cat Scan Report ---
CT chest w con HISTORY: MALIGNANT OF NEOPLASM OF INNER QUADRANT OF LEFT FEMALE BREAST COMPARISON: January 10, 2020 TECHNIQUE: Chest CT exam. All CT scans at this location are performed using CT dose reduction for ALA RA by means of automated exposure control. FINDINGS: CT CHEST: Lungs: No significant abnormality. Trachea and Bronchi: No significant abnormality. Mediastinum: No Lymphadenopathy. Heart: No significant abnormality. Vasculature: No significant abnormality. Lymphatics: No lymphadenopathy. Osseous Structures: No aggressive appearing osseous lesions. Additional Findings: Bilateral breast implants. 1.8 cm left lower pole thyroid nodule. Unchanged hepa tic steatosis. Left transvenous port terminates in the right atrium. IMPRESSION: 1. No evidence for recurrence or metastatic disease 2. 1.8 cm left lower pole thyroid nodule. Dedicated thyroid ultrasound is recommended if not already performed. Signer Name: Marcel Ospina MD Signed: 06/05/2020 4:06 PM Workstation Name: [id number]
--- NOTE | 2020-06-05 17:02 | Cat Scan Report ---
CT OF THE ABDOMEN AND PELVIS WITH INTRAVENOUS CONTRAST INDICATION / CLINICAL INFORMATION: MALIGNANT OF NEOPLASM OF INNER QUADRANT OF LEFT FEMALE BREAST. Restaging. TECHNIQUE: The patient received 100 cc Omnipaque [address] scans at this location are performed using CT dose reduction for ALARA by means of automated exposure control. COMPARISON: 01/10/2020. FINDINGS: ABDOMEN: There are scattered calcified granulomata in the spleen. There is a small accessory spleen. There is mild diffuse fatty infiltration of the liver without focal lesion. The gallbladder, bile tin ts, pancreas, adrenal glands, kidneys and bowel demonstrate no significant abnormality. No adenopathy is seen. PELVIS: The distal ureters and urinary bladder are normal. There are multiple uterine fibroids. There is no evidence of adnexal mass or free fluid. I see no evidence of appendicitis or diverticulitis. I do not identify a hernia. There is no evidence of osseous metastatic disease. IMPRESSION: No evidence of metastatic disease or significant change. Signer Name: Ryley Nixon MD Signed: 06/05/2020 4:57 PM Workstation Name: [id number]
== END 2020-06-05 10:00 | disposition home or self-care (01) ==
LOC: NM 09:59
PROVIDERS: ATTEND Internal Medicine Hematology & Oncology
DX: K76.0 Fatty (change of) liver, not elsewhere classified (principal); D25.9 Leiomyoma of uterus, unspecified; E04.1 Nontoxic single thyroid nodule; C50.212 Malignant neoplasm of upper-inner quadrant of left female breast; R51.9 Headache, unspecified
CPT/HCPCS: 36415; 71260; 74177; 78306; 82565; 84520; A9503; J1642; Q9967

== ENCOUNTER 2020-10-13 12:16 | Outpatient (CLI) | payer BC ==
--- NOTE | 2020-10-13 15:00 | Cat Scan Report ---
CT chest, abdomen, and pelvis with contrast INDICATION : Breast cancer restaging exam, left-sided breast cancer. TECHNIQUE: 100 mL of intravenous contrast administered.. All CT scans at this location are performe d using CT dose reduction for ALARA by means of automated exposure control. COMPARISON: CT guo scan from 06/05/2020 FINDINGS: Chest: Stable left thyroid nodule. Intact breast implants. Left-sided Port-A-Cath tip is in the atri um. No pathologic mediastinal adenopathy. Normal heart size. Calcified mediastinal lymph nodes are pr esent. The lungs are clear. No acute osseous abnormality or osseous metastatic disease. Abdomen/pelvis: There is hepatic steatosis and hepatomegaly. The gallbladder, spleen, pancreas, adre nals, kidneys, and proximal GI tract appear unremarkable. No pathologic adenopathy. There is a simple right ovarian cyst. Reproductive organs are otherwise unremarkable. No acute coloni c abnormality. No acute osseous abnormality or osseous metastatic disease. IMPRESSION: No metastatic disease identified. Signer Name: Atul Pedraza MD Signed: 10/13/2020 2:56 PM Workstation Name: [id number]
--- NOTE | 2020-10-13 15:00 | Cat Scan Report ---
CT chest, abdomen, and pelvis with contrast INDICATION : Breast cancer restaging exam, left-sided breast cancer. TECHNIQUE: 100 mL of intravenous contrast administered.. All CT scans at this location are performe d using CT dose reduction for ALARA by means of automated exposure control. COMPARISON: CT guo scan from 06/05/2020 FINDINGS: Chest: Stable left thyroid nodule. Intact breast implants. Left-sided Port-A-Cath tip is in the atri um. No pathologic mediastinal adenopathy. Normal heart size. Calcified mediastinal lymph nodes are pr esent. The lungs are clear. No acute osseous abnormality or osseous metastatic disease. Abdomen/pelvis: There is hepatic steatosis and hepatomegaly. The gallbladder, spleen, pancreas, adre nals, kidneys, and proximal GI tract appear unremarkable. No pathologic adenopathy. There is a simple right ovarian cyst. Reproductive organs are otherwise unremarkable. No acute coloni c abnormality. No acute osseous abnormality or osseous metastatic disease. IMPRESSION: No metastatic disease identified. Signer Name: tAul Pedraza MD Signed: 10/13/2020 2:56 PM Workstation Name: [id number]
== END 2020-10-13 12:17 | disposition home or self-care (01) ==
LOC: CT 12:16
PROVIDERS: ATTEND Internal Medicine Hematology & Oncology
DX: Z23 Encounter for immunization (principal); C50.212 Malignant neoplasm of upper-inner quadrant of left female breast; R51.9 Headache, unspecified; E04.1 Nontoxic single thyroid nodule; R16.1 Splenomegaly, not elsewhere classified; K76.0 Fatty (change of) liver, not elsewhere classified; N83.201 Unspecified ovarian cyst, right side
CPT/HCPCS: 71260; 74177; Q9967

== ENCOUNTER 2021-02-11 09:03 | Outpatient (CLI) | payer BC ==
--- NOTE | 2021-02-11 11:34 | Cat Scan Report ---
CT CHEST WITH CONTRAST INDICATION / CLINICAL INFORMATION: MALIGNANT NEOPLASMOF UPPER INNER QUADRANT OF LEFT BREAST [id number] 1 00ml. TECHNIQUE: Axial CT images were obtained through the chest after 100 cc IV contrast. Sagittal and coronal reform atted images. All CT scans at this location are performed using CT dose reduction for ALARA by means of automated exposure control. COMPARISON: 10/13/2020 FINDINGS: HEART: No significant abnormality. THORACIC AORTA: No significant abnormality. MEDIASTINUM and SARA: No significant abnormality. Stable 1.5 cm left thyroid nodule. LUNGS: No acute air space or interstitial disease. PLEURA: No significant pleural effusion. No pneumothorax. SKELETAL SYSTEM: No significant abnormality. IMPRESSION: Stable findings since 10/13/2020 with no evidence for recurrent or metastatic disease. CT ABDOMEN AND PELVIS WITH CONTRAST HISTORY: MALIGNANT NEOPLASMOF UPPER INNER QUADRANT OF LEFT BREAST [id number] 100ml COMPARISON: 10/13/2020 TECHNIQUE: Axial CT images were obtained through the abdomen and pelvis after 100 cc of IV contrast. Sagittal and coronal reformatted images. All CT scans at this location are performed using CT dose re duction for ALARA by means of automated exposure control. FINDINGS: CT ABDOMEN: Liver: Stable hepatic steatosis. No suspicious liver lesion is detected. Biliary: No significant abnormality. Spleen: No significant abnormality. Unenlarged. Pancreas: No significant abnormality. Adrenals: No significant abnormality. Kidneys: No significant abnormality. Lymphatics: No lymphadenopathy. Vasculature: No significant abnormality. Bowel/Peritoneum: No significant abnormality. No free air. No free fluid. CT PELVIS: : Mild uterine fibroid disease is evident and unchanged. The ovaries are unremarkable. Small ovaria n cyst seen on the previous exam has resolved. Normal bladder. Osseous Structures: No significant abnormality. Additional Findings: None IMPRESSION: Stable findings in the abdomen and pelvis since 10/13/2020 with no evidence for metastatic disease. Hepatic steatosis. Mild uterine fibroid disease. Signer Name: Hair Campbell Jr, MD Signed: 02/11/2021 11:30 AM Workstation Name: [id number]
--- NOTE | 2021-02-11 11:34 | Cat Scan Report ---
CT CHEST WITH CONTRAST INDICATION / CLINICAL INFORMATION: MALIGNANT NEOPLASMOF UPPER INNER QUADRANT OF LEFT BREAST [id number] 1 00ml. TECHNIQUE: Axial CT images were obtained through the chest after 100 cc IV contrast. Sagittal and coronal reform atted images. All CT scans at this location are performed using CT dose reduction for ALARA by means of automated exposure control. COMPARISON: 10/13/2020 FINDINGS: HEART: No significant abnormality. THORACIC AORTA: No significant abnormality. MEDIASTINUM and SARA: No significant abnormality. Stable 1.5 cm left thyroid nodule. LUNGS: No acute air space or interstitial disease. PLEURA: No significant pleural effusion. No pneumothorax. SKELETAL SYSTEM: No significant abnormality. IMPRESSION: Stable findings since 10/13/2020 with no evidence for recurrent or metastatic disease. CT ABDOMEN AND PELVIS WITH CONTRAST HISTORY: MALIGNANT NEOPLASMOF UPPER INNER QUADRANT OF LEFT BREAST [id number] 100ml COMPARISON: 10/13/2020 TECHNIQUE: Axial CT images were obtained through the abdomen and pelvis after 100 cc of IV contrast. Sagittal and coronal reformatted images. All CT scans at this location are performed using CT dose re duction for ALARA by means of automated exposure control. FINDINGS: CT ABDOMEN: Liver: Stable hepatic steatosis. No suspicious liver lesion is detected. Biliary: No significant abnormality. Spleen: No significant abnormality. Unenlarged. Pancreas: No significant abnormality. Adrenals: No significant abnormality. Kidneys: No significant abnormality. Lymphatics: No lymphadenopathy. Vasculature: No significant abnormality. Bowel/Peritoneum: No significant abnormality. No free air. No free fluid. CT PELVIS: : Mild uterine fibroid disease is evident and unchanged. The ovaries are unremarkable. Small ovaria n cyst seen on the previous exam has resolved. Normal bladder. Osseous Structures: No significant abnormality. Additional Findings: None IMPRESSION: Stable findings in the abdomen and pelvis since 10/13/2020 with no evidence for metastatic disease. Hepatic steatosis. Mild uterine fibroid disease. Signer Name: Hair Campbell Jr, MD Signed: 02/11/2021 11:30 AM Workstation Name: [id number]
--- NOTE | 2021-02-11 14:06 | Nuclear Medicine Report ---
NUCLEAR MEDICINE BONE SCAN, LIMITED INDICATION / CLINICAL INFORMATION: MALIGNANT NEOPLASMOF UPPER INNER QUADRANT OF LEFT BREAST. TECHNIQUE: 26.2 mCi of Tc-99m MDP were injected IV. Images were obtained of the whole body. COMPARISON: CT from 02/11/2021. Nuclear medicine bone scan from 06/05/2020. FINDINGS: BONES: No osseous lesion or other abnormality. JOINTS: Unchanged degenerative activity. SOFT TISSUES: No significant abnormality. ADDITIONAL FINDINGS: None. IMPRESSION: 1. No scintigraphic evidence of osseous metastatic disease. Signer Name: Kalyan Covington MD Signed: 02/11/2021 2:02 PM Workstation Name: [id number]
== END 2021-02-11 09:04 | disposition home or self-care (01) ==
LOC: NM 09:03
PROVIDERS: ATTEND Internal Medicine Hematology & Oncology
DX: C50.212 Malignant neoplasm of upper-inner quadrant of left female breast (principal); D25.9 Leiomyoma of uterus, unspecified; K76.0 Fatty (change of) liver, not elsewhere classified
CPT/HCPCS: 36415; 71260; 74177; 78306; 82565; 84520; 96523; A9503; J1642; Q9967

== ENCOUNTER 2021-07-07 08:34 | Outpatient (CLI) | payer BC ==
[2021-07-07 09:55] LABS: Blood Urea Nitrogen 19 mg/dL (7-17)
--- NOTE | 2021-07-07 13:14 | Cat Scan Report ---
CT chest with contrast INDICATION : Breast cancer TECHNIQUE: 100 mL of intravenous contrast administered. All CT scans at this location are performed using CT dose reduction for ALARA by means of automated exposure control. COMPARISON: 02/11/2021, 10/13/2020. FINDINGS: Stable 1.5 cm left thyroid nodule. Left chest Port-A-Cath is again noted. Lungs are clear without evidence of focal pulmonary consolidation or edema. No discrete pulmonary mas s or nodule. No pleural effusion or pneumothorax. Heart is within normal limits in terms of size. No evidence of pericardial effusion. No mediastinal o r axillary lymphadenopathy. Osseous structures show no evidence acute fracture or aggressive osseous destructive lesion. Bilateral breast implants are noted. IMPRESSION: No evidence of recurrent or metastatic disease within the chest. Signer Name: Jonnathan Diaz MD Signed: 07/07/2021 1:09 PM Workstation Name: [id number]
--- NOTE | 2021-07-07 13:20 | Cat Scan Report ---
CT ABDOMEN AND PELVIS WITH CONTRAST HISTORY: Breast cancer. COMPARISON: 02/11/2021, 10/13/2020. TECHNIQUE: CT images of the abdomen and pelvis were obtained following administration of intravenous contrast. All CT scans at this location are performed using CT dose reduction for ALARA by means of a utomated exposure control. CONTRAST: 100 ml of intravenous contrast administered. FINDINGS: Stable hypodense appearance of the liver compatible with steatosis. A few scattered hyperdensities throughout the spleen likely represent prior granulomatous exposure. T he kidneys, pancreas, adrenal glands, and gallbladder are unremarkable. Gastrointestinal tract shows no evidence of bowel wall thickening or pathologic distention. There are no pathologically enlarged l ymph nodes. No free intraperitoneal gas or fluid. The appendix is not identified, but no inflammatory changes are seen in the region of the cecum. Urin tana bladder is unremarkable. Osseous structures show no evidence of acute fracture or aggressive osseous destructive lesion. IMPRESSION: No evidence of metastatic disease within the abdomen and pelvis. Signer Name: Jonnathan Diaz MD Signed: 07/07/2021 1:16 PM Workstation Name: [id number]
--- NOTE | 2021-07-07 16:12 | Nuclear Medicine Report ---
NUCLEAR MEDICINE BONE SCAN, WHOLE BODY INDICATION: BREAST CANCER. TECHNIQUE: 25.6 mCi of Tc-99m MDP were injected IV. Whole body images were obtained. COMPARISON: CT guo scan from 07/07/2021. FINDINGS: Skeletal Structures/Lesions: No bone lesions identified. Probable degenerative uptake seen in the fee t. Soft Tissues: Normal. Kidneys: Normal, symmetric activity. Additional Findings: None. IMPRESSION: 1. No bony metastatic disease identified.. Signer Name: Atul Pedraza MD Signed: 07/07/2021 4:08 PM Workstation Name: [id number]
== END 2021-07-07 08:35 | disposition home or self-care (01) ==
LOC: NM 08:34
PROVIDERS: ATTEND Internal Medicine Hematology & Oncology
DX: C50.212 Malignant neoplasm of upper-inner quadrant of left female breast (principal); R51.9 Headache, unspecified; E04.1 Nontoxic single thyroid nodule; Z79.899 Other long term (current) drug therapy
CPT/HCPCS: 36415; 71260; 74177; 78306; 82565; 84520; 96523; A9503; J1642; Q9967

== ENCOUNTER 2021-07-17 07:39 | Outpatient (CLI) | payer BC ==
[2021-07-17 08:18] LABS: Blood Urea Nitrogen 15 mg/dL (7-17)
--- NOTE | 2021-07-17 09:40 | Cat Scan Report ---
CT head/brain wo/w con INDICATION / CLINICAL INFORMATION: 41 years Female; HEADACHES OMNI 300 100 ML. TECHNIQUE: Routine CT head without and with contrast. All CT scans at this location are performed usi ng CT dose reduction for SOREN by means of automated exposure control. COMPARISON: 07/23/2019 FINDINGS: BRAIN / INTRACRANIAL CONTENTS: No acute hemorrhage, mass effect, midline shift, hydrocephalus, or acu te, large territorial infarct. No signs of significant atrophy or chronic infarct. No significant whi te matter abnormality seen. I see no signs of abnormal enhancement following contrast administration. CRANIOCERVICAL JUNCTION: No significant abnormality. ORBITS: No significant abnormality of visualized orbits. SINUSES / MASTOIDS: Visualized paranasal sinuses and mastoid air cells are essentially clear. ADDITIONAL FINDINGS: None. IMPRESSION: 1. No focal mass, hemorrhage, hydrocephalus, or acute, large territorial infarct. Signer Name: Vitor Quintana MD, III Signed: 07/17/2021 9:35 AM Workstation Name: [id number]
== END 2021-07-17 07:40 | disposition home or self-care (01) ==
LOC: CT 07:39
PROVIDERS: ATTEND Internal Medicine Hematology & Oncology
DX: Z51.11 Encounter for antineoplastic chemotherapy (principal); Z32.02 Encounter for pregnancy test, result negative; Z23 Encounter for immunization; C50.212 Malignant neoplasm of upper-inner quadrant of left female breast; D70.9 Neutropenia, unspecified; R51.9 Headache, unspecified; A41.9 Sepsis, unspecified organism; D72.829 Elevated white blood cell count, unspecified; E86.0 Dehydration; N28.9 Disorder of kidney and ureter, unspecified; D64.9 Anemia, unspecified; I10 Essential (primary) hypertension; M62.838 Other muscle spasm; R23.2 Flushing; G62.9 Polyneuropathy, unspecified
CPT/HCPCS: 36415; 70470; 82565; 84520; J1642; Q9967

== ENCOUNTER 2021-12-23 08:12 | Outpatient (CLI) | payer BC ==
[2021-12-23 09:39] LABS: Blood Urea Nitrogen 19 mg/dL (7-17)
--- NOTE | 2021-12-23 10:34 | Cat Scan Report ---
CT CHEST, ABDOMEN, AND PELVIS WITH IV CONTRAST INDICATION / CLINICAL INFORMATION: HX OF BREAST CANCER 100 ML OMNI 300 . TECHNIQUE: Axial CT images were obtained through the chest, abdomen, and pelvis after IV contrast. All CT scans at this location are performed using CT dose reduction for ALARA by means of automated exposure contr ol. COMPARISON: 07/07/2021 FINDINGS: CHEST: Bilateral breast implants are noted. No focal consolidation or pleural effusion.. No focal con solidation pleural effusion or pneumothorax. Left thyroid nodule appears stable ABDOMEN/PELVIS: There is diffuse fatty infiltration of the liver. No focal liver lesion. Granulomas c hanges are seen throughout the spleen. Hiatal hernia is noted. Pancreas, gallbladder and upper GI tra ct appear normal. Bilateral kidneys appear normal. The right ovary is prominent measuring 3.1 cm. No dominant adenopathy is seen. SKELETAL SYSTEM: No significant abnormality. IMPRESSION: No significant change. No evidence for metastatic disease. Signer Name: Antonio Leroy MD Signed: 12/23/2021 10:30 AM Workstation Name: [email or web address]
--- NOTE | 2021-12-23 14:13 | Nuclear Medicine Report ---
NUCLEAR MEDICINE WHOLE BODY BONE IMAGING STUDY. HISTORY: C50.212 COMPARISON: Bone scan 07/07/2021 TECHNIQUE: The patient was administered 27.2 mCi of technetium 99m labeled MDP intravenously. FINDINGS: There is bilateral, relatively symmetric articular activity which is most likely degenerative given t he distribution and symmetry. No asymmetric radiotracer activity is seen within the included axial and appendicular skeleton. There is normal soft tissue activity in the kidneys and urinary bladder. IMPRESSION: No scintigraphic evidence of osseous metastatic disease. Presumed degenerative changes, as above. Signer Name: Devon Jay MD Signed: 12/23/2021 2:08 PM Workstation Name: [id number]
== END 2021-12-23 08:13 | disposition home or self-care (01) ==
LOC: NM 08:12
PROVIDERS: ATTEND Internal Medicine Hematology & Oncology
DX: N64.89 Other specified disorders of breast (principal); C50.212 Malignant neoplasm of upper-inner quadrant of left female breast; K44.9 Diaphragmatic hernia without obstruction or gangrene; E04.1 Nontoxic single thyroid nodule; D70.9 Neutropenia, unspecified; N39.0 Urinary tract infection, site not specified; I10 Essential (primary) hypertension; E66.9 Obesity, unspecified; D64.9 Anemia, unspecified; Z80.3 Family history of malignant neoplasm of breast; Z83.3 Family history of diabetes mellitus; Z98.82 Breast implant status; Z79.899 Other long term (current) drug therapy; Z90.12 Acquired absence of left breast and nipple; Z98.890 Other specified postprocedural states; Z82.49 Family history of ischemic heart disease and other diseases of the circulatory system; Z68.36 Body mass index [BMI] 36.0-36.9, adult
CPT/HCPCS: 36415; 71260; 74177; 78306; 82565; 84520; 96523; A9503; J1642; Q9967

== ENCOUNTER 2022-01-20 08:11 | Outpatient (CLI) | payer BC ==
--- NOTE | 2022-01-20 09:43 | Ultrasound Report ---
ULTRASOUND PELVIS COMPLETE INDICATION / CLINICAL INFORMATION: F/U ON RT OVARIAN CYST. TECHNIQUE: Transabdominal. Duplex Color Doppler used: Yes. COMPARISON: Multiple previous CT abdomen and pelvis with contrast would be most recent being 12/24/19. FINDINGS: UTERUS: Present. - Appearance (if present): Mildly lobular and heterogeneous - Size in cm (if present): 5.6 x 2.2 x 2.8. - Endometrial Complex (if present): No significant abnormality.. Thickness in cm (if measured) = 0.3 - Mass lesions: There is an exophytic fibroid from the right side of the uterine fundus measuring up to 3.9 cm. - Additional findings: None. RIGHT ADNEXA: No significant ovarian cyst or mass. Normal color Doppler blood flow. LEFT ADNEXA: No significant ovarian cyst or mass. Normal color Doppler blood flow. URINARY BLADDER: No significant abnormality. FREE FLUID: None. ADDITIONAL FINDINGS: None. IMPRESSION: Mild uterine fibroid disease as described. The ovaries are unremarkable. No ovarian cyst is detected . Signer Name: Hair Campbell Jr, MD Signed: 01/20/2022 9:39 AM Workstation Name: [id number]
== END 2022-01-20 08:12 | disposition home or self-care (01) ==
LOC: US 08:11
PROVIDERS: ATTEND Internal Medicine Hematology & Oncology
DX: D25.9 Leiomyoma of uterus, unspecified (principal); C50.212 Malignant neoplasm of upper-inner quadrant of left female breast
CPT/HCPCS: 76856